=== PATIENT | female | born 1945 | race Caucasian/White ===

== ENCOUNTER → 2018-03-09 11:13 | Outpatient (CLI) | payer MEDICARE, OTHER, SELFPAY ==
[2018-03-09 11:26] LABS: Red Blood Cells-Urine 0 SEEN /hpf (0-5)
[2018-03-09 14:29] LABS: Color, Urine Yellow (Yellow); Glucose, Dipstick Normal (Normal); Ketone-Dipstick Negative (Negative); Leukocyte Esterase-Dipstick 100 /ul (Negative); Nitrite-Dipstick Negative (Negative); Occult Blood-Urine 10 /ul (Negative); Protein-Dipstick Negative (Negative); Specific Gravity, Urine 1.015 (1.002-1.030); Urine Bilirubin Dipstick Negative (Negative); Urine Clarity Clear (Clear); Urine Urobilinogen Normal (Normal); Urine pH 6.5 (5.0 - 8.0)
[2018-03-09 14:36] LABS: Erythrocyte Sedimentation Rate 3 mm/hr (0-30)
[2018-03-09 14:39] LABS: Absolute Lymphocyte Count 1.52 X10^3/ul (0.83-4.51); Absolute Neutrophil Count 5.3 X10^3/uL (2.0-7.7); Basophil# 0.04 X10^3/uL; Basophil% 0.5 % (0-1); Eosinophils% 2.7 % (0-5); Hematocrit 41.6 % (37-47); Lymphocyte # 1.52 X10^3/ul (4.0); Lymphocyte % 20.2 % (19-41); Mean Corp Hgb Conc 33.7 g/gl (32-36); Mean Corpuscular Hgb 28.3 pg (27.0-32.0); Mean Corpuscular Volume 84.2 fL (81-99); Mean Platelet Vol. 11.2 fl (6.2-12.0); Monocyte# 0.49 X10^3/uL; Monocyte% 6.5 % (0-10); Neutrophil # 5.27 X10^3/uL (2.7-7.7); Platelet Count 184 K/mm3 (150-450); RBC Distribution Width CV 13.2 % (11.6-14.6); RBC Distribution Width SD 40.3 fl (35.1-43.9); Red Blood Count 4.94 M/mm3 (4.2-5.4); White Blood Count 7.5 K/mm3 (4.4-11.0)
[2018-03-09 14:40] LABS: POSITIVE COUNT NO; POSITIVE DIFFERENTIAL NO; POSITIVE MORPHOLOGY NO
[2018-03-09 14:43] LABS: Bacteria RARE /hpf (None Seen); Mucous, Urine RARE /hpf (<or=2+); Squamous Epithelial Cells - UA 0-5 SEEN /hpf (5-10); White Blood Cells 0-5 SEEN /hpf (0-5)
[2018-03-09 14:56] LABS: ALB/GLOB Ratio 1.1 RATIO (0.9-2.4); AST(SGOT) 13 U/L (15-37); Alanine Aminotransfer ALT/SGPT 24 U/L (13-56); Albumin, Serum 4.1 g/dL (3.2-5.0); Alkaline Phosphatase 95 U/L (45-117); Anion Gap 9 (5-15); BUN 18 mg/dL (7-18); BUN/Creat Ratio 16.1 RATIO (10-20); CRP 6.26 mg/L (0.0-3.0); Chloride 102 mmol/L (98-107); Cholesterol 236 mg/dL (200); Creatinine, Serum 1.12 mg/dL (0.55-1.02); EST Glomerular Filtration Rate 51 mL/min (>60); Est Glom Filt Rate - Afr Amer 61 mL/min (>60); Globulin 3.7 g/dL (2.2-4.2); Glucose 90 mg/dL (74-106); High Density Lipoprotein 36 mg/dL; Potassium 3.6 mmol/L (3.5-5.1); Protein, Total 7.8 g/dL (6.4-8.2); Sodium Level 140 mmol/L (136-145); Thyroid Stim Hormone (TSH) 1.67 uIU/mL (0.358-3.74); Triglycerides 246 mg/dL; Very Low Density Lipoprotein 49 mg/dL (5-40)
[2018-03-10 09:52] LABS: Vitamin D,25 Hydroxy 31.7 ng/mL (29.95-100.01)
[2018-03-10 16:10] LABS: Endomysial Antibody IgA Negative (Negative)
[2018-03-11 09:36] LABS: Immunoglobulin A 141 mg/dL (64-422); t-Transglutaminase IgA <2 U/mL (0-3)
== END ==
PROVIDERS: Family Provider Family Medicine; PCP Family Medicine; Visit Provider Family Medicine
DX: I10 Essential (primary) hypertension (principal); M79.7 Fibromyalgia; R10.9 Unspecified abdominal pain; E55.9 Vitamin D deficiency, unspecified
CPT/HCPCS: 36415; 80053; 80061; 81001; 82306; 82784; 83516; 84443; 85025; 85652; 86140; 86255

== ENCOUNTER → 2018-03-30 12:00 | Outpatient (CLI) | payer MEDICARE, OTHER, SELFPAY ==
[2018-03-30 14:39] LABS: Anion Gap 10 (5-15); BUN 18 mg/dL (7-18); BUN/Creat Ratio 16.1 RATIO (10-20); Calcium,Total 9.2 mg/dL (8.5-10.1); Chloride 103 mmol/L (98-107); Creatinine, Serum 1.12 mg/dL (0.55-1.02); EST Glomerular Filtration Rate 51 mL/min (>60); Est Glom Filt Rate - Afr Amer 61 mL/min (>60); Glucose 83 mg/dL (74-106); Potassium 3.3 mmol/L (3.5-5.1); Sodium Level 141 mmol/L (136-145)
== END ==
PROVIDERS: Family Provider Family Medicine; PCP Family Medicine; Visit Provider Family Medicine
DX: R94.4 Abnormal results of kidney function studies (principal)
CPT/HCPCS: 36415; 80048

== ENCOUNTER → 2018-04-25 10:16 | Outpatient (CLI) | payer MEDICARE, OTHER, SELFPAY ==
--- NOTE | 2018-04-25 10:22 | CT_ITS ---
STUDY: CT CHEST WITHOUT CONTRAST REASON FOR EXAM: Female, 72 years old. Pulmonary nodules. RADIATION DOSAGE (If Supplied By Facility): CTDIvol = ( 12.36 ) mGy, DLP = ( 410.87 ) mGycm TECHNIQUE: Transaxial imaging was performed without the administration of intravenous contrast material. Sagittal/coronal reconstructions. Individualized dose optimization techniques were used for this CT. COMPARISON: None available. FINDINGS: CT abdomen without IV contrast. The lungs appear well ventilated and clear with only minimal predominantly bibasal lateral groundglass opacities consistent with subsegmental atelectasis. Right lower lobe posterior basal segment lateral approximate 0.5 x 0.9 cm calcified granuloma noted. There is no demonstrated pleural abnormality. No calcified pleural plaque identified. Moderate elevated right diaphragm seen. Mildly enlarged heart without pericardial fluid noted. Moderate left coronary artery LAD branch calcification. 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 Mediastinum shows numerous mildly enlarged lymph nodes. For example, right inferior paratracheal lymph node is seen just medial to the azygos arch proximal 1.2 x 1.5 cm. Other lymph nodes are seen in the lateral aortic recess and AP window with small right subcarinal calcified lymph node noted. Normal mika size noted with right hilar old calcified lymph nodes seen. Moderately enlarged appearing central pulmonary arteries noted, may represent pulmonary arterial hypertension in the appropriate clinical setting. No aneurysm identified thoracic aorta. Thyroid is partially obscured by metal artifact from right proximal humeral metal endoprosthesis but the left thyroid lobe shows a superior posterior rounded low-attenuation lesion, may represent a colloid cyst but is too small to characterize approximate 0.6 cm diameter. Esophagus shows no focal large gross bulky lesion with above limitations. No acute osseous identified. Metal artifact from right proximal humeral metal endoprosthesis noted. There is no demonstrated abnormality of the visualized upper abdomen. Tiny scattered splenic calcified granulomas noted. CT/Chest without Contrast IMPRESSION: Nonacute unenhanced CT Chest examination. Right lower lobe posterior segment calcified granuloma. Moderate pulmonary arterial hypertension suggested in the appropriate clinical setting. Clinical correlation recommended. Tiny left thyroid lobe superior pole likely colloid cyst. If clinically indicated, thyroid ultrasound may be more helpful. Limitations above. Electronically Signed: Maxwell Martinez, at 16:53 EDT Tel , Service support ,
== END ==
PROVIDERS: Family Provider Family Medicine; PCP Family Medicine; Visit Provider Family Medicine
DX: R91.8 Other nonspecific abnormal finding of lung field (principal)
CPT/HCPCS: 71250

== ENCOUNTER → 2018-05-09 08:52 | Outpatient (CLI) | payer MEDICARE, OTHER, SELFPAY | PROVIDERS: Family Provider Family Medicine; PCP Family Medicine; Visit Provider Family Medicine | DX: E04.1 Nontoxic single thyroid nodule (principal) | CPT/HCPCS: 76536 ==

== ENCOUNTER → 2018-05-11 11:54 | Outpatient (CLI) | payer MEDICARE, OTHER, SELFPAY ==
[2018-05-11 14:20] LABS: Anion Gap 9 (5-15); BUN 17 mg/dL (7-18); BUN/Creat Ratio 16.5 RATIO (10-20); Calcium,Total 9.4 mg/dL (8.5-10.1); Chloride 103 mmol/L (98-107); Creatinine, Serum 1.03 mg/dL (0.55-1.02); EST Glomerular Filtration Rate 56 mL/min (>60); Est Glom Filt Rate - Afr Amer 68 mL/min (>60); Glucose 87 mg/dL (74-106); Potassium 3.9 mmol/L (3.5-5.1); Sodium Level 139 mmol/L (136-145)
== END ==
PROVIDERS: Family Provider Family Medicine; PCP Family Medicine; Visit Provider Family Medicine
DX: N18.3 Chronic kidney disease, stage 3 (moderate) (principal)
CPT/HCPCS: 36415; 80048

== ENCOUNTER → 2018-06-21 08:54 | Outpatient (CLI) | payer MEDICARE, OTHER, SELFPAY ==
--- NOTE | 2018-06-21 08:57 | RDU_ITS ---
Reason For Study: Decreased GFR Right Renal Artery Left Renal Artery Right renal artery ostium 139/22 Left renal artery ostium 149/32 RSV/EDV. PSV/EDV. Right renal artery proximal 148/31 Left renal artery proximal PSV/EDV PSV/EDV. 227/43 . Right renal artery mid 135/29 Left renal artery mid 231/43 PSV/EDV. PSV/EDV . Right renal artery distal 157/33 Left renal artery distal 224/32 PSV/EDV. PSV/EDV. Right Renal Parenchyma Left Renal Parenchyma Upper Pole Medula 42/12 PSV/EDV. Left upper pole medulla 19/5 Right upper pole medulla EDR 0.29 . PSV/EDV . Right upper pole medulla R.I. Left upper pole medulla EDR 0.26 . 0.70 . Left upper pole medulla R.I. 0.75 . Upper Vicente Cortx 17/5 PSV/EDV. UP Cortex 23/5 PSV/EDV. Right upper pole cortex EDR 0.29 . Left upper pole cortex EDR 0.22 . Right upper pole cortex R.I. 0.67 . Left upper pole cortex R.I. 0.77 . Right lower Pole medulla 28/7 Left lower Pole medulla 19/4 PSV/EDV . PSV/EDV . Right lower pole medulla EDR 0.25 . Left lower pole medulla EDR 0.21 . Right lower pole medulla R.I. Left lower pole medulla R.I. 0.81 . 0.76 . Lower Pole Cortx 14/4 PSV/EDV. Lower Pole Cortex 16/5 PSV/EDV. Left lower pole cortex EDR 0.29 . Right lower pole cortex EDR 0.31 . Left lower pole cortex R.I. 0.69 . Right lower pole cortex R.I. 0.71 . Left Renal Hilar Right Renal Hilar LT Hilar avg 111/26 PSV/EDV . Right Hilar avg 77/14 PSV/EDV. Left hilar acceleration time 37 Right hilar acceleration time 29 m/sec. m/sec. Left Renal Dimensions Right Renal Dimensions Left kidney size 9.65 cm . Right kidney size 9.06 cm . Left cortical dimension 1.04 cm . Right cortical dimension 1.09 cm . Aorta Proximal abdominal aorta 1.63cm x 1.65 cm . Proximal abdominal aorta peak systolic velocity is 126 cm/sec . Distal abdominal aorta 1.18cm x 1.23 cm . Distal abdominal aorta peak systolic velocity is 90 cm/sec . Interpretation Summary Dimensions of the intra-abdominal aorta appear normal, without evidence of aneurysmal dilatation. Right renal artery velocities are normal. Left renal artery velocities are elevated. Acceleration times are normal bilaterally. There is no evidence of renal artery stenosis in the right renal artery. There is evidence of mild left renal artery stenosis, though not appearing to be hemodynamically significant. Cortical dimensions are bilaterally normal. Kidneys appear normal in size bilaterally. Ordering Physician: Siddharth Vidal Referring Physician: Siddharth Vidal Performed By: Gudelia Marcelo, TASHIA, RVT
== END ==
PROVIDERS: Family Provider Family Medicine; PCP Family Medicine; Referring Provider Family Medicine; Visit Provider Family Medicine
DX: I10 Essential (primary) hypertension (principal); R94.4 Abnormal results of kidney function studies
CPT/HCPCS: 93975

== ENCOUNTER → 2018-07-12 10:36 | Outpatient (CLI) | payer MEDICARE, OTHER, SELFPAY ==
[2018-07-12 12:21] LABS: Anion Gap 8 (5-15); BUN 16 mg/dL (7-18); BUN/Creat Ratio 15.2 RATIO (10-20); Calcium,Total 9.1 mg/dL (8.5-10.1); Chloride 105 mmol/L (98-107); Cholesterol 229 mg/dL (200); Creatinine, Serum 1.05 mg/dL (0.55-1.02); EST Glomerular Filtration Rate 55 mL/min (>60); Est Glom Filt Rate - Afr Amer 66 mL/min (>60); Glucose 91 mg/dL (74-106); High Density Lipoprotein 37 mg/dL; Potassium 3.9 mmol/L (3.5-5.1); Sodium Level 139 mmol/L (136-145); Triglycerides 248 mg/dL; Very Low Density Lipoprotein 50 mg/dL (5-40)
== END ==
PROVIDERS: Family Provider Family Medicine; PCP Family Medicine; Visit Provider Family Medicine
DX: N18.3 Chronic kidney disease, stage 3 (moderate) (principal); E78.5 Hyperlipidemia, unspecified
CPT/HCPCS: 36415; 80048; 80061

== ENCOUNTER → 2018-08-17 20:20 | Outpatient (CLI) | payer MEDICARE, OTHER, SELFPAY ==
--- OUTSIDE RECORDS SUMMARY | 2018-10-12 23:42 | XMS RPT_ITS ---
:1945 Author Organization OHIP Support Name Relationship Address Phone MARY BELLO Unavailable [id number] + [place] [address] R Unavailable Unavailable Unavailable ACE, MARY Unavailable [address] + [place] [address] R Unavailable Unavailable Unavailable ACE MARY Unavailable [address] + [place] [address] R Unavailable Unavailable Unavailable ACE, MARY Unavailable [address] + [place] [address] R Unavailable Unavailable Unavailable ACE, MARY Unavailable [address] + [place] [address] R Unavailable Unavailable Unavailable ACE, MARY Unavailable [address] + [place] [address] R Unavailable Unavailable Unavailable ACE, MARY Unavailable [address] + [place] [address] R Unavailable Unavailable Unavailable ACE, MARY Unavailable [address] + [place] [address] R Unavailable Unavailable Unavailable ACE, MARY Unavailable [address] + [place] [address] ACE MARY Unavailable [address] + [place] [address] R Unavailable Unavailable Unavailable ACE, MARY Unavailable [address] + [place] [address] NOT GIVEN Unavailable Unavailable Unavailable ACE, MARY Unavailable [address] + [place] [address] ACE MARY Unavailable [address] [place] [address] NOT GIVEN Unavailable Unavailable Unavailable Care Team Providers Name Role Phone Siddharth Vidal Attending Unavailable Siddharth Vidal Primary Care Unavailable Siddharth Vidal Attending Unavailable Siddharth Vidal Primary Care Unavailable Siddharth Vidal Attending Unavailable Schvira, Siddharth Werner Referring Unavailable Schvira, Siddharth Werner Primary Care Unavailable SchSiddharth constantino Attending Unavailable Schintucker, Siddharth Werner Referring Unavailable Schintucker, Siddharth E Primary Care Unavailable SchSiddharth constantino Attending Unavailable Schvira, Siddharth Werner Primary Care Unavailable SchSiddharth constantino Attending Unavailable Schvira, Siddharth E Primary Care Unavailable Schvira, Siddharth Werner Referring Unavailable Siddharth Vidal Attending Unavailable Siddharth Vidal Primary Care Unavailable Brandon Sanchez Attending Unavailable Siddharth Vidal Primary Care Unavailable Brandon Sanchez Referring Unavailable Nurse, Standard Attending Unavailable Siddharth Vidal Referring Unavailable JANET PARSON Attending Unavailable Physician, PCP Unknown Primary Care Unavailable PRINCESS JANET Admitting Unavailable TIFFANIE LINK Attending Unavailable Physician, PCP Unknown Primary Care Unavailable JEET GALINDO CNP Admitting Unavailable JEET GALINDO CNP Attending Unavailable JEET GALINDO CNP Primary Care Unavailable AGAPITO VARGHESE Consulting Unavailable PROVIDER, UNKNOWN Consulting Unavailable PROVIDER, UNKNOWN Consulting Unavailable PROVIDER, UNKNOWN Consulting Unavailable JEET GALINDO CNP Admitting Unavailable JEET GALINDO CNP Attending Unavailable JEET GALINDO CNP Primary Care Unavailable AGAPITO VARGHESE Consulting Unavailable PROVIDER, UNKNOWN Consulting Unavailable PROVIDER, UNKNOWN Consulting Unavailable PROVIDER, UNKNOWN Consulting Unavailable PRINCESS JANET Admitting Unavailable PRINCESS JANET Attending Unavailable NONE, NONE Consulting Unavailable PROBLEMS PROBLEMS DATE TYPE CONDITION / CODE ATTENDING STATUS SOURCE 08/18/2018 Unknown R82.90 - Brandon Sanchez Active [facility] abnormal [facility] in urine / Repository R82.90(ICD-10) 03/28/2018 Admitting ENC FOR OTHER [facility] diagnosis ORTHOPEDIC [facility] AFTERCARE / Repository Z47.89(ICD-10) 03/28/2018 Unknown ENC FOR OTHER [facility], Active [facility] ORTHOPEDIC [facility] AFTERCARE / Repository Z47.89(ICD-10) 03/28/2018 Unknown PAIN IN RIGHT [facility] SHOULDER / [facility] M25.511(ICD-10) Repository 03/20/2018 Admitting IMPINGEMENT PRINCESS Active [place] Diagnosis SYNDROME RIG / [facility] M75.41(ICD-10) Repository 11/17/2017 Admitting Unknown / NOWINSKI, Active [place] [facility] UNK(Unknown) [facility] Repository 01/23/2018 Principle Encounter for JEET GALINDO Active [facility] / H55553(ICD-10) Repository PROCEDURES PROCEDURES No Procedure Records FoundRESULTS RESULTS Observed: 08/17/2018 Status: F Source: ARRON CULTURE, URINE 2:45 PM [facility] REPOS[facility] Urine Culture ORGANISM 1: Mixed Gram Pos AND Gram Neg Org [place] Count 1000-10,000 MIX CULTURE Mixed contaminants. Submit a new specimen if indicated. Performed By: #### M100.0650 #### [facility] [address] [place], [address] BASIC METABOLIC Collected: 07/12/2018 Status: F Source: ARRON PROFILE (BMP) 10:37 AM [facility] REPOS[facility] TYPE CODE TESTS RESULT OUT OF RANGE REFERENCE UNITS LAB L501.0100 74-106 mg/dL Normal GLU 91 Result Comment: Please note revised GLUCOSE reference range effective 2017. LAB L501.1000 7-18 mg/dL Normal BUN 16 LAB L501.1100 0.55-1.02 mg/dL High CREAT,SERUM 1.05 Result Comment: The validity of the calculated GFR AND GFRAA in patients over 70 years has not been determined. Clinical correlation is essential. LAB L501.1110 >60 mL/min Low EST GFR 55 Result Comment: Non- GFR Calc LAB L501.1115 >60 mL/min Normal EST GFR - AA 66 Result Comment: GFR Calc LAB L501.1300 10-20 RATIO Normal BUN/CRE 15.2 LAB L501.2200 8.5-10.1 mg/dL CA Normal 9.1 LAB L501.5300 136-145 mmol/L NA Normal 139 LAB L501.5600 3.5-5.1 mmol/L K Normal 3.9 LAB L501.5900 98-107 mmol/L CL Normal 105 LAB L501.6100 21.0-32.0 mmol/L Normal CO2 26.0 LAB L501.6200 5-15 Normal GAP 8 Performed By: #### L500.2500, L500.4100 #### [facility] [address] [place], [address] LIPID PROFILE Collected: 07/12/2018 Status: F Source: JARRATT 10:37 AM [facility] TYPE CODE TESTS RESULT OUT OF RANGE REFERENCE UNITS LAB L501.4900 200 mg/dL High CHOL 229 Result Comment: <200 mg/dL Desirable 200-240 mg/dL Borderline >240 mg/dL High Risk LAB L501.5000 mg/dL High TRIG 248 Result Comment: The drugs N-Acetylcysteine and Metamizole may falsely depress this assay. Serum Triglycerides Reference Interval Normal <150 mg/dL Borderline high 150 - 199 mg/dL High 200 - 499 mg/dL Very High > or = 500 mg/dL LAB L501.6400 mg/dL Low HDL 37 Result Comment: The drugs N-Acetylcysteine and Metamizole may falsely depress this assay. Reference Range HDL <40 mg/dL Low HDL Cholesterol HDL >or= 60 mg/dL High HDL Cholesterol LAB L501.6500 0-130 mg/dL High LDL 142 LAB L501.6600 5-40 mg/dL High VLDL 50 Performed By: #### L500.2500, L500.4100 #### [facility] [address] [place], [address] RENAL ARTERY DUPLEX Observed: 06/23/2018 Status: F Source: JARRATT 10:02 PM [facility] [address] [place] [address] Renal Artery Duplex Ultrasound 06/21/18 0859 MR#: [id number] Acct: [id number] Name: ZEV BELLO Rep #: [id number] : 1945 72 From: Brian Moore MD Attending Dr: Siddharth Vidal MD Status: REG CLI Ordering Dr: Siddharth Vidal MD Date: 06/21/18 Location: CVS Sex: F C Admitted: Reason For Study: Decreased GFR Right Renal Artery Left Renal Artery Right renal artery ostium 139/22 Left renal artery ostium 149/32 RSV/EDV. PSV/EDV. Right renal artery proximal 148/31 Left renal artery proximal PSV/EDV PSV/EDV. 227/43 . Right renal artery mid 135/29 Left renal artery mid 231/43 PSV/EDV. PSV/EDV . Right renal artery distal 157/33 Left renal artery distal 224/32 PSV/EDV. PSV/EDV. Right Renal Parenchyma Left Renal Parenchyma Upper Pole Medula 42/12 PSV/EDV. Left upper pole medulla 19/5 Right upper pole medulla EDR 0.29 . PSV/EDV . Right upper pole medulla R.I. Left upper pole medulla EDR 0.26 . 0.70 . Left upper pole medulla R.I. 0.75 . Upper Vicente Cortx 17/5 PSV/EDV. UP Cortex 23/5 PSV/EDV. Right upper pole cortex EDR 0.29 . Left upper pole cortex EDR 0.22 . Right upper pole cortex R.I. 0.67 . Left upper pole cortex R.I. 0.77 . Right lower Pole medulla 28/7 Left lower Pole medulla 19/4 PSV/EDV . PSV/EDV . Right lower pole medulla EDR 0.25 . Left lower pole medulla EDR 0.21 . Right lower pole medulla R.I. Left lower pole medulla R.I. 0.81 . 0.76 . Lower Pole Cortx 14/4 PSV/EDV. Lower Pole Cortex 16/5 PSV/EDV. Left lower pole cortex EDR 0.29 . Right lower pole cortex EDR 0.31 . Left lower pole cortex R.I. 0.69 . Right lower pole cortex R.I. 0.71 . Left Renal Hilar Right Renal Hilar LT Hilar avg 111/26 PSV/EDV . Right Hilar avg 77/14 PSV/EDV. Left hilar acceleration time 37 Right hilar acceleration time 29 m/sec. m/sec. Left Renal Dimensions Right Renal Dimensions Left kidney size 9.65 cm . Right kidney size 9.06 cm . Left cortical dimension 1.04 cm . Right cortical dimension 1.09 cm . Aorta Proximal abdominal aorta 1.63cm x 1.65 cm . Proximal abdominal aorta peak systolic velocity is 126 cm/sec . Distal abdominal aorta 1.18cm x 1.23 cm . Distal abdominal aorta peak systolic velocity is 90 cm/sec . Interpretation Summary Dimensions of the intra-abdominal aorta appear normal, without evidence of aneurysmal dilatation. Right renal artery velocities are normal. Left renal artery velocities are elevated. Acceleration times are normal bilaterally. There is no evidence of renal artery stenosis in the right renal artery. There is evidence of mild left renal artery stenosis, though not appearing to be hemodynamically significant. Cortical dimensions are bilaterally normal. Kidneys appear normal in size bilaterally. Ordering Physician: Siddharth Vidal Referring Physician: Siddharth Vidal Performed By: Gudelia Marcelo, TASHIA, RVT 06/23/182200 Date Brian Moore MD CC: Siddharth Vidal MD Date Dictated: 06/21/1859 Date Transcribed: 06/23/182200 Visual Specialist: Signed BASIC METABOLIC Collected: 05/11/2018 Status: F Source: ARRON PROFILE (BMP) 11:55 AM [facility] Order Comment: Order Date: 05/11/18 Order Info: 0667-1 - BMP TYPE CODE TESTS RESULT OUT OF RANGE REFERENCE UNITS LAB L501.0100 74-106 mg/dL Normal GLU 87 Result Comment: Please note revised GLUCOSE reference range effective 2017. LAB L501.1000 7-18 mg/dL Normal BUN 17 LAB L501.1100 0.55-1.02 mg/dL High CREAT,SERUM 1.03 Result Comment: The validity of the calculated GFR AND GFRAA in patients over 70 years has not been determined. Clinical correlation is essential. LAB L501.1110 >60 mL/min Low EST GFR 56 Result Comment: Non- GFR Calc LAB L501.1115 >60 mL/min Normal EST GFR - AA 68 Result Comment: GFR Calc LAB L501.1300 10-20 RATIO Normal BUN/CRE 16.5 LAB L501.2200 8.5-10.1 mg/dL CA Normal 9.4 LAB L501.5300 136-145 mmol/L NA Normal 139 LAB L501.5600 3.5-5.1 mmol/L K Normal 3.9 LAB L501.5900 98-107 mmol/L CL Normal 103 LAB L501.6100 21.0-32.0 mmol/L Normal CO2 27.0 LAB L501.6200 5-15 Normal GAP 9 Performed By: #### L500.2500 #### [facility] [address] [place], [address] THYROID Observed: 05/09/2018 Status: F Source: JARRATT 8:55 AM [facility] Imaging Services [address] [place] [address] Thyroid MR#: [id number] Acct: [id number] Name: ZEV BELLO Rep #: [id number] : 1945 F 72 From: Timmy Ryan DO PCP: Siddharth Vidal MD Status: REG CLI Study: Thyroid Date of Exam: 05/09/18 Exam# [id number] Ordering Dr: Siddharth Vidal MD STUDY: THYROID ULTRASOUND REASON FOR EXAM: Female, 72 years old. Follow-up of thyroid nodule TECHNIQUE: Ultrasound evaluation of the thyroid was performed with real-time and static cagle-scale imaging. COMPARISON: Chest CT dated 04/25/2018 FINDINGS: RIGHT LOBE: The right lobe of the thyroid gland measures 4.6 x 1.9 x 1.6 cm. There is a homogeneous echotexture. There are no demonstrated solid, cystic or complex lesions. 1 mm calcification in the midpole LEFT LOBE: The left lobe of the thyroid gland measures 4.6 x 1.7 x 1.8 cm. There is a homogeneous echotexture. Mid to lower pole isoechoic nodule versus gentle lobulation measuring 9 x 6 x 8 mm. ISTHMUS: The isthmus measures 5 mm. The regional lymph nodes are normal. US/Thyroid IMPRESSION: Unremarkable right thyroid lobe. Small left thyroid lobe nodule versus gentle lobulation. Subcentimeter in size. Electronically Signed: Timmyantonella DupreeDO benjamin at 10:45 EDT Tel , Service support , CC: Siddharth Vidal MD Visual Specialist: Signed CHEST WITHOUT Observed: 04/25/2018 Status: F Source: JARRATT CONTRAST 10:22 AM [facility] Imaging Services [address] [place], [place] [address] [address] Chest without Contrast MR#: [id number] Acct: [id number] Name: ZEV BELLO Rep #: [id number] : 1945 F 72 From: Janet Martinez MD PCP: Siddharth Vidal MD Status: REG CLI Study: Chest without Contrast Date of Exam: 04/25/18 Exam# [id number] Ordering Dr: Siddharth Vidal MD STUDY: CT CHEST WITHOUT CONTRAST REASON FOR EXAM: Female, 72 years old. Pulmonary nodules. RADIATION DOSAGE (If Supplied By Facility): CTDIvol = ( 12.36 ) mGy, DLP = ( 410.87 ) mGycm TECHNIQUE: Transaxial imaging was performed without the administration of intravenous contrast material. Sagittal/coronal reconstructions. Individualized dose optimization techniques were used for this CT. COMPARISON: None available. FINDINGS: CT abdomen without IV contrast. The lungs appear well ventilated and clear with only minimal predominantly bibasal lateral groundglass opacities consistent with subsegmental atelectasis. Right lower lobe posterior basal segment lateral approximate 0.5 x 0.9 cm calcified granuloma noted. There is no demonstrated pleural abnormality. No calcified pleural plaque identified. Moderate elevated right diaphragm seen. Mildly enlarged heart without pericardial fluid noted. Moderate left coronary artery LAD branch calcification. 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 Mediastinum shows numerous mildly enlarged lymph nodes. For example, right inferior paratracheal lymph node is seen just medial to the azygos arch proximal 1.2 x 1.5 cm. Other lymph nodes are seen in the lateral aortic recess and AP window with small right subcarinal calcified lymph node noted. Normal mika size noted with right hilar old calcified lymph nodes seen. Moderately enlarged appearing central pulmonary arteries noted, may represent pulmonary arterial hypertension in the appropriate clinical setting. No aneurysm identified thoracic aorta. Thyroid is partially obscured by metal artifact from right proximal humeral metal endoprosthesis but the left thyroid lobe shows a superior posterior rounded low-attenuation lesion, may represent a colloid cyst but is too small to characterize approximate 0.6 cm diameter. Esophagus shows no focal large gross bulky lesion with above limitations. No acute osseous identified. Metal artifact from right proximal humeral metal endoprosthesis noted. There is no demonstrated abnormality of the visualized upper abdomen. Tiny scattered splenic calcified granulomas noted. CT/Chest without Contrast IMPRESSION: Nonacute unenhanced CT Chest examination. Right lower lobe posterior segment calcified granuloma. Moderate pulmonary arterial hypertension suggested in the appropriate clinical setting. Clinical correlation recommended. Tiny left thyroid lobe superior pole likely colloid cyst. If clinically indicated, thyroid ultrasound may be more helpful. Limitations above. Electronically Signed: Janet Martinez, at 16:53 EDT Tel , Service support , CC: Siddharth Vidla MD Visual Specialist: Signed BASIC METABOLIC Collected: 03/30/2018 Status: F Source: ARRON PROFILE (BMP) 12:03 PM [facility] Order Comment: Order Date: 03/30/18 Order Info: 0667-1 - BMP TYPE CODE TESTS RESULT OUT OF RANGE REFERENCE UNITS LAB L501.0100 74-106 mg/dL Normal GLU 83 Result Comment: Please note revised GLUCOSE reference range effective 2017. LAB L501.1000 7-18 mg/dL Normal BUN 18 LAB L501.1100 0.55-1.02 mg/dL High CREAT,SERUM 1.12 Result Comment: The validity of the calculated GFR AND GFRAA in patients over 70 years has not been determined. Clinical correlation is essential. LAB L501.1110 >60 mL/min Low EST GFR 51 Result Comment: Non- GFR Calc LAB L501.1115 >60 mL/min Normal EST GFR - AA 61 Result Comment: GFR Calc LAB L501.1300 10-20 RATIO Normal BUN/CRE 16.1 LAB L501.2200 8.5-10.1 mg/dL CA Normal 9.2 LAB L501.5300 136-145 mmol/L NA Normal 141 LAB L501.5600 3.5-5.1 mmol/L Low K 3.3 LAB L501.5900 98-107 mmol/L CL Normal 103 LAB L501.6100 21.0-32.0 mmol/L Normal CO2 28.0 LAB L501.6200 5-15 Normal GAP 10 Performed By: #### L500.2500 #### [facility] [address] [place], [address] DO NOT DISPLAY DATA Observed: 03/14/2018 Status: C Source: MOODUS DISCHARGE 11:46 AM [facility] RE[facility] [place] [address] Name: ZEV BELLO : 1945 Current Date: 03/14/2018 11:46:16 Primary Care Provider Name: Physician, PCP Unknown, Physician Phone: Patient Education Materials ZEV BELLO has been given the following patient education materials: Home Health Care Constipation, Adult Constipation is when a person has fewer than three bowel movements a week, has difficulty having a bowel movement, or has stools that are dry, hard, or larger than normal. As people grow older, constipa tion is more common. A low-fiber diet, not taking in enough fluids, and taking certain medicines may make constipation worse. CAUSES ???Certain medicines, such as antidepressants, pain medicine, iron supplements, antacids, and water pills. ?Certain diseases, such as diabetes, irritable bowel syndrome (IBS), thyroid disease, or depression. ?Not drinking enough water. ?Not eating enough fiber-rich foods. ?Stress or travel. ?Lack of physical activity or exercise. ?Ignoring the urge to have a bowel movement. ?Using laxatives too much. ? SIGNS AND SYMPTOMS ???Having fewer than three bowel movements a week. ?Straining to have a bowel movement. ?Having stools that are hard, dry, or larger than normal. ?Feeling full or bloated. ?Pain in the lower abdomen. ?Not feeling relief after having a bowel movement. ? DIAGNOSIS Your health care provider will take a medical history and perform a physical exam. Further testing may be done for severe constipation. Some tests may include: ???A barium enema X-ray to examine your rectum, colon, and, sometimes, your small intestine. ?A sigmoidoscopy to examine your lower colon. ?A colonoscopy to examine your entire colon. TREATMENT Treatment will depend on the severity of your constipation and what is causing it. Some dietary treatments include drinking more fluids and eating more fiber-rich foods. Lifestyle treatments may include regular exercise. If these diet and lifestyle recommendations do not help, your health care provider may recommend taking balj-bgd-nezdxmp laxative medicines to help you have bowel movements. Prescript ion medicines may be prescribed if mzhf-jrd-cidawik medicines do not work. HOME CARE INSTRUCTIONS ???Eat foods that have a lot of fiber, such as fruits, vegetables, whole grains, and beans. ???Limit foods high in fat and processed sugars, such as gibraltarian fries, hamburgers, cookies, candies, and soda. ?A fiber supplement may be added to your diet if you cannot get enough fiber from foods. ?Drink enough fluids to keep your urine clear or pale yellow. ?Exercise regularly or as directed by your health care provider. ?Go to the restroom when you have the urge to go. Do not hold it. ?Only take lgnr-epx-bwwksri or prescription medicines as directed by your health care provider. Do not take other medicines for constipation without talking to your health care provider first. ? SEEK IMMEDIATE MEDICAL CARE IF: ???You have bright red blood in your stool. ?Your constipation lasts for more than 4 days or gets worse. ?You have abdominal or rectal pain. ?You have thin, pencil-like stools. ?You have unexplained weight loss. MAKE SURE YOU: ???Understand these instructions. ???Will watch your condition. ???Will get help right away if you are not doing well or get worse. This information is not intended to replace advice given to you by your health care provider. Make sure you discuss any questions you have with your health care provider. Document Released: 06/03/2005 Document Revised: 09/26/2015 Document Reviewed: 06/17/2014 [employer] Patient Education ?2016 [employer] Preventive Medicine Venous Thromboembolism, Prevention A venous thromboembolism is a blood clot that forms in a vein. A blood clot in a deep vein is called a deep venous thrombosis (DVT). A blood clot in the lungs is called a pulmonary embolism (PE). Blood clots are dangerous and can cause . Blood clots can form in the: ???Lungs. ???Legs. ???Arms. CAUSES ???A blood clot can form in a vein from different conditions. A blood clot can develop due to: ???Blood flow within a vein that is sluggish or very slow. ???Medical conditions that make the blood clot easily. ???Vein damage. RISK FACTORS Risk factors can increase your risk of developing a blood clot. Risk factors can include: ???Smoking. ???Obesity. ???Age. ???Immobility or sedentary lifestyle. ???Sitting or standing for long periods of time. ???Chronic or long-term bedrest. ???Medical or past history of blood clots. ???Family history of blood clots. ???Hip, leg, or pelvis injury or trauma. ???Major surgery, especially surgery on the hip, knee, or abdomen. ??? and childbirth. ??? control pills and hormone replacement therapy. ???Medical conditions such as ???Peripheral vascular disease (PVD). ???Diabetes. ???Cancer. SYMPTOMS Symptoms of VTE can depend on where the clot is located and if the clot breaks off and travels to another organ. Sometimes, there may be no symptoms. ???DVT symptoms can include: ???Swelling of the leg or arm, especially on one side. ???Warmth and redness of the leg or arm, especially on one side. ???Pain in an arm or leg. Leg pain may be more noticeable or worse when standing or walking. ???PE symptoms can include: ???Shortness of breath. ???Coughing. ???Coughing up blood or blood-tinged mucus (hemoptysis). ???Chest pain or chest pain with deep breaths (pleuritic chest pain). ???Apprehension, anxiety, or a feeling of impending doom. ???Rapid heartbeat. PREVENTION ???Exercise regularly. Take a brisk 30 minute walk every day. Staying active and moving around can help prevent blood clots. ???Avoid sitting or lying in bed for long periods of time. Change your position often, especially during a long trip. ???Women, especially those over the age of 35, should consider the risks and benefits of taking estrogen medicines. This includes control pills and hormone replacement therapy. ???Do not smoke, especially if you take estrogen medicines. If you smoke, talk to your caregiver on how to quit. ???Eat plenty of fruits and vegetables. Ask your caregiver or dietitian if there are foods you should avoid. ???Maintain a weight as suggested by your caregiver. ???Wear loose-fitting clothing. Avoid constrictive or tight clothing around your legs or waist. ???Try not to bump or injure your legs. Avoid crossing your legs when you are sitting. ???Do not use pillows under your knees unless told by your caregiver. ???Take all medicines that your caregiver prescribes you. ???Wear special stockings (compression stockings or ANDRÉS hose) if your caregiver prescribes them. ???Wearing compression stockings (support hose) can make the leg veins more narrow. This increases blood flow in the legs and can help prevent blood clots. ???It is important to wear compression stockings correctly. Do not let them bunch up when you are wearing them. TRAVEL Long distance travel can increase the risk of a blood clot. To prevent a blood clot when traveling: ???You should exercise your legs by walking or by pumping your muscles every hour. To help prevent poor circulation on long trips, stand, stretch, and walk up and down the aisle of your airplane, train, or bus as often as possible to get the blood moving. ???Do squats if you are able. If you are unable to do squats, raise your foot on the balls of your feet and tighten your lower leg muscles (particularly the calve muscles) while seated. Pointing (flexin g and extending) your toes while tightening your calves while seated are also good exercises to do every hour during long trips. They help increase blood flow and reduce risk of DVT. ???Stay well hydrated. Drink water regularly when traveling, especially when you are sitting or immobile for long periods of time. ???Use of drugs to prevent DVT during routine travel is not generally recommended. Before taking any drugs to reduce risk of DVT, consult your caregiver. SURGERY AND HOSPITALIZATION ???People who are at high risk for a blood clot may be given a blood thinning medicine (anticoagulant) when they are hospitalized even if they are not going to have surgery. ???A long trip prior to surgery can increase the risk of a clot for patients undergoing hip and knee replacements. Talk to your caregiver about travel plans before your surgery. ???After hip or knee surgery, your caregiver may give you anticoagulants to help prevent blood clots. ???Anticoagulants may be given to people at high risk of developing thromboembolism, before, during, or sometimes after surgery, including people with clotting disorders or with a history of past thromboembolism. TRAVEL AFTER SURGERY ???In orthopedic surgery, the cutting of bones prompts the body to increase clotting factors in the blood. Due to the size of the bones involved in hip and knee replacements, there is a higher risk of b lood clotting than other orthopedic surgeries. ???There is a risk of clotting for up to 4?6 weeks after surgery. Flying or traveling long distances can increase your risk of a clot. As a result, those who travel long distances may need additional pr eventive measures after their procedure. ???Drink only non-alcoholic beverages during your flight, train, or car travel. Alcohol can dehydrate you and increase your risk of getting blood clots. SEEK IMMEDIATE MEDICAL CARE IF: ???You develop chest pain. ???You develop severe shortness of breath. ???You have breathing problems after traveling. ???You develop swelling or pain in the leg. ???You begin to cough up bloody mucus or phlegm (sputum). ???You feel dizzy or faint. This information is not intended to replace advice given to you by your health care provider. Make sure you discuss any questions you have with your health care provider. Document Released: 08/24/2010 Document Revised: 05/30/2013 Document Reviewed: 12/31/2015 [employer] Interactive Patient Education ?2016 [employer] Fall Prevention in the Home Falls can cause injuries. They can happen to people of all ages. There are many things you can do to make your home safe and to help prevent falls. WHAT CAN I DO ON THE OUTSIDE OF MY HOME?Regularly fix the edges of walkways and driveways and fix any cracks. ???Remove anything that might make you trip as you walk through a door, such as a raised step or threshold. ???Trim any bushes or trees on the path to your home. ???Use bright outdoor lighting. ???Clear any walking paths of anything that might make someone trip, such as rocks or tools. ???Regularly check to see if handrails are loose or broken. Make sure that both sides of any steps have handrails. ???Any raised decks and porches should have guardrails on the edges. ???Have any leaves, snow, or ice cleared regularly. ???Use sand or salt on walking paths during winter. ???Clean up any spills in your garage right away. This includes oil or grease spills. WHAT CAN I DO IN THE BATHROOM?Use night lights. ???Install grab bars by the toilet and in the tub and shower. Do not use towel bars as grab bars. ???Use non-skid mats or decals in the tub or shower. ???If you need to sit down in the shower, use a plastic, non- slip stool. ???Keep the floor dry. Clean up any water that spills on the floor as soon as it happens. ???Remove soap buildup in the tub or shower regularly. ???Attach bath mats securely with double-sided non-slip rug tape. ???Do not have throw rugs and other things on the floor that can make you trip. WHAT CAN I DO IN THE BEDROOM?Use night lights. ???Make sure that you have a light by your bed that is easy to reach. ???Do not use any sheets or blankets that are too big for your bed. They should not hang down onto the floor. ???Have a firm chair that has side arms. You can use this for support while you get dressed. ???Do not have throw rugs and other things on the floor that can make you trip. WHAT CAN I DO IN THE KITCHEN?Clean up any spills right away. ???Avoid walking on wet floors. ???Keep items that you use a lot in popx-bk-psrcu places. ???If you need to reach something above you, use a strong step stool that has a grab bar. ???Keep electrical cords out of the way. ???Do not use floor somali or wax that makes floors slippery. If you must use wax, use non-skid floor wax. ???Do not have throw rugs and other things on the floor that can make you trip. WHAT CAN I DO WITH MY STAIRS?Do not leave any items on the stairs. ???Make sure that there are handrails on both sides of the stairs and use them. Fix handrails that are broken or loose. Make sure that handrails are as long as the stairways. ???Check any carpeting to make sure that it is firmly attached to the stairs. Fix any carpet that is loose or worn. ???Avoid having throw rugs at the top or bottom of the stairs. If you do have throw rugs, attach them to the floor with carpet tape. ???Make sure that you have a light switch at the top of the stairs and the bottom of the stairs. If you do not have them, ask someone to add them for you. WHAT ELSE CAN I DO TO HELP PREVENT FALLS?Wear shoes that: ???Do not have high heels. ???Have rubber bottoms. ???Are comfortable and fit you well. ???Are closed at the toe. Do not wear sandals. ???If you use a stepladder: ???Make sure that it is fully opened. Do not climb a closed stepladder. ???Make sure that both sides of the stepladder are locked into place. ???Ask someone to hold it for you, if possible. ???Clearly judson and make sure that you can see: ???Any grab bars or handrails. ???First and last steps. ???Where the edge of each step is. ???Use tools that help you move around (mobility aids) if they are needed. These include: ???Canes. ???Walkers. ???Scooters. ???Crutches. ???Turn on the lights when you go into a dark area. Replace any light bulbs as soon as they burn out. ???Set up your furniture so you have a clear path. Avoid moving your furniture around. ???If any of your floors are uneven, fix them. ???If there are any pets around you, be aware of where they are. ???Review your medicines with your doctor. Some medicines can make you feel dizzy. This can increase your chance of falling. Ask your doctor what other things that you can do to help prevent falls. This information is not intended to replace advice given to you by your health care provider. Make sure you discuss any questions you have with your health care provider. Document Released: 07/02/2010 Document Revised: 01/20/2016 Document Reviewed: 10/10/2015 [employer] Interactive Patient Education ?2016 [employer] Procedures Incentive Spirometer An incentive spirometer is a tool that can help keep your lungs clear and active. This tool measures how well you are filling your lungs with each breath. Taking long, deep breaths may help reverse or d ecrease the chance of developing breathing (pulmonary) problems (especially infection) following: ???Surgery of the chest or abdomen. ???Surgery if you have a history of smoking or a lung problem. ???A long period of time when you are unable to move or be active. BEFORE THE PROCEDURE ???If the spirometer includes an indicator to show your best effort, your nurse or respiratory therapist will set it to a desired goal. ???If possible, sit up straight or lean slightly forward. Try not to slouch. ???Hold the incentive spirometer in an upright position. INSTRUCTIONS FOR USE 1.??Sit on the edge of your bed if possible, or sit up as far as you can in bed or on a chair. 2.??Hold the incentive spirometer in an upright position. 3.??Breathe out normally. 4.??Place the mouthpiece in your mouth and seal your lips tightly around it. 5.??Breathe in slowly and as deeply as possible, raising the piston or the ball toward the top of the column. 6.??Hold your breath for 3?5 seconds or for as long as possible. Allow the piston or ball to fall to the bottom of the column. 7.??Remove the mouthpiece from your mouth and breathe out normally. 8.??Rest for a few seconds and repeat Steps 1 through 7 at least 10 times every 1?2 hours when you are awake. Take your time and take a few normal breaths between deep breaths. 9.??The spirometer may include an indicator to show your best effort. Use the indicator as a goal to work toward during each repetition. 10.??After each set of 10 deep breaths, practice coughing to be sure your lungs are clear. If you have an incision (the cut made at the time of surgery), support your incision when coughing by placing a pillow or rolled-up towels firmly against it. Once you are able to get out of bed, walk around indoors and cough well. You may stop using the incentive spirometer when instructed by your caregiver. RISKS AND COMPLICATIONS ???Breathing too quickly may cause dizziness. At an extreme, this could cause you to pass out. Take your time so you do not get dizzy or light-headed. ???If you are in pain, you may need to take or ask for pain medication before doing incentive spirometry. It is harder to take a deep breath if you are having pain. AFTER USE ???Rest and breathe slowly and easily. ???It can be helpful to keep a log of your progress. Your caregiver can provide you with a simple table to help with this. If you are using the spirometer at home, follow these instructions: SEEK MEDICAL CARE IF: ???You are having difficultly using the spirometer. ???You have trouble using the spirometer as often as instructed. ???Your pain medication is not giving enough relief while using the spirometer. ???You develop fever of 100.5?F (38.1?C) or higher. SEEK IMMEDIATE MEDICAL CARE IF: ???You cough up bloody sputum that had not been present before. ???You develop fever of 102?F (38.9?C) or greater. ???You develop worsening pain at or near the incision site. MAKE SURE YOU: ???Understand these instructions. ???Will watch your condition. ???Will get help right away if you are not doing well or get worse. This information is not intended to replace advice given to you by your health care provider. Make sure you discuss any questions you have with your health care provider. Document Released: 01/16/2008 Document Revised: 09/26/2015 Document Reviewed: 04/14/2015 [employer] Interactive Patient Education ?2016 [employer] Pain Medicine Instructions HOW CAN PAIN MEDICINE AFFECT ME? You were given a prescription for pain medicine. This medicine may make you tired or drowsy and may affect your ability to think clearly. Pain medicine may also affect your ability to drive or perform c ertain physical activities. It may not be possible to make all of your pain go away, but you should be comfortable enough to move, breathe, and take care of yourself. HOW OFTEN SHOULD I TAKE PAIN MEDICINE AND HOW MUCH SHOULD I TAKE?Take pain medicine only as directed by your health care provider and only as needed for pain. ???You do not need to take pain medicine if you are not having pain, unless directed by your health care provider. ???You can take less than the prescribed dose if you find that a smaller amount of medicine controls your pain. WHAT RESTRICTIONS DO I HAVE WHILE TAKING PAIN MEDICINE? Follow these instructions after you start taking pain medicine, while you are taking the medicine, and for 8 hours after you stop taking the medicine: ???Do not drive. ???Do not operate machinery. ???Do not operate power tools. ???Do not sign legal documents. ???Do not drink alcohol. ???Do not take sleeping pills. ???Do not supervise children by yourself. ???Do not participate in activities that require climbing or being in high places. ???Do not enter a body of water?such as a knapp, river, ocean, spa, or swimming pool?without an adult nearby who can monitor and help you. HOW CAN I KEEP OTHERS SAFE WHILE I AM TAKING PAIN MEDICINE?Store your pain medicine as directed by your health care provider. Make sure that it is placed where children and pets cannot reach it. ???Never share your pain medicine with anyone. ???Do not save any leftover pills. If you have any leftover pain medicine, get rid of it or destroy it as directed by your health care provider. WHAT ELSE DO I NEED TO KNOW ABOUT TAKING PAIN MEDICINE?Use a stool softener if you become constipated from your pain medicine. Increasing your intake of fruits and vegetables will also help with constipation. ???Write down the times when you take your pain medicine. Look at the times before you take your next dose of medicine. It is easy to become confused while on pain medicine. Recording the times helps you to avoid an overdose. ???If your pain is severe, do not try to treat it yourself by taking more pills than instructed on your prescription. Contact your health care provider for help. ???You may have been prescribed a pain medicine that contains acetaminophen. Do not take any other acetaminophen while taking this medicine. An overdose of acetaminophen can result in severe liver damag e. Acetaminophen is found in many cmfn-rmx-tcxcimq (OTC) and prescription medicines. If you are taking any medicines in addition to your pain medicine, check the active ingredients on those medicines to see if acetaminophen is listed. WHEN SHOULD I CALL MY HEALTH CARE PROVIDER?Your medicine is not helping to make the pain go away. ???You vomit or have diarrhea shortly after taking the medicine. ???You develop new pain in areas that did not hurt before. ???You have an allergic reaction to your medicine. This may include: ???Itchiness. ???Swelling. ???Dizziness. ???Developing a new rash. WHEN SHOULD I CALL 911 OR GO TO THE EMERGENCY ROOM?You feel dizzy or you faint. ???You are very confused or disoriented. ???You repeatedly vomit. ???Your skin or lips turn pale or bluish in color. ???You have shortness of breath or you are breathing much more slowly than usual. ???You have a severe allergic reaction to your medicine. This includes: ???Developing tongue swelling. ???Having difficulty breathing. This information is not intended to replace advice given to you by your health care provider. Make sure you discuss any questions you have with your health care provider. Document Released: 12/12/2001 Document Revised: 01/20/2016 Document Reviewed: 07/10/2015 [employer] Interactive Patient Education ?2016 [employer] Mindful Eating - Building New Habits Health Education Mindful eating is a del valle part of good nutrition. Being mindful of what you are eating and enjoying the food you eat is an excellent habit to build. It can help you manage your weight, follow a special di et such as for diabetes, or eat healthier. You may find that you eat quickly or don't pay much attention to what or how much you are eating. This can lead to eating much more than you realize. When you eat mindlessly, you don't feel as satisfied as when you slow down and enjoy your food. Your mind needs to feel full - not just your stomach. Many people eat as a way of dealing with emotions and stress. Eating when you are bored, anxious or need comfort is very common. You may find yourself eating without even thinking about whether or not you are hungry. To increase your awareness: - Before eating anything make a conscious effort to ask yourself if you are really hungry. - Try keeping a food journal. Record how you are feeling as you begin and end eating, what you are eating, and the time you are eating. When you eat: - Slow down and savor each bite. Put down your fork between bites. - Try smelling your food. Enjoy the different scents of foods. - Focus on chewing food well and enjoying the tastes and textures of what you are eating. - Eat at the table. Put your food on a plate and sit down when you eat. - Don't multi-task while eating or eat in front of the TV or the computer. To avoid eating without thinking or overeating: - If there is food left on your plate and you are no longer hungry, cover it with a napkin or clear your plate. Clean up after meals. - Don't leave food sitting out and avoid candy dishes. - Don't keep food at your desk or in your office at work. - At parties, don't stand close to the food tables. Focus on enjoying the company. - Portion out your food. Never eat out of an original container such as a box of crackers or a bag of chips. Building mindful eating habits takes time and practice - just like any other skill. Share what you are doing with you friends and family members and ask them to support your efforts. Talk with your dietitian, nurse or doctor about any questions or concerns. To learn more about mindful eating: Eat What You Love and Love What You Eat by Teresa Hughes M.D. www.[facility] Eating Mindfully: How to End Mindless Eating and Enjoy a Balanced Relationship with Food by Natalie Santiago www.[employer] Mindful Eating: A Guide to Rediscovering a Healthy and Joyful Relationship with Food by Aneesh Spear Mindless Eating: Why We Eat More Than We Think by Twan Romero to Eating Healthy Health Education Healthful eating is one of the most important things you can do to improve your health. You may be able to decrease your risk of diabetes, obesity, heart disease, osteoporosis, and certain cancers. Use USDA's MyPlate and food labels as tools to plan and balance your choices over the course of the day or week. Eat a variety of foods from all the food groups. This is where USDA's My Plate (www.choosemyplate.gov) will come in handy. Each food group provides some, but not all, of the nutrients you need. No one food group is more important than another- for goo d health you need them all. If you avoid one whole food group, your diet may be out of balance and missing del valle nutrients. Eat 5 fruits and vegetables each day. Fruits and vegetables are a del valle part of your healthy eating plan. They are packed with fiber, vitamins, minerals, and cancer fighting antioxidants. ?? They make great healthful snacks and are easy to grab and eat when you are in a hurry. ?? You can include them in every meal by having fruit on your cereal at breakfast, salads at lunch, cooked veggies for dinner or fruit as dessert. Choose high fiber foods. Dietary fiber that occurs naturally in foods may help reduce the risk of cardiovascular disease, obesity, and type 2 diabetes. Whole grain breads and cereals, beans, legumes, fruits, and vegetables are all high in fiber. Choose foods lower in fat and cholesterol. Cut down on food that is high in fat and cholesterol to keep your heart healthy, help lower your cholesterol levels, and help control your weight. The goal is to get no more than 30% of your total calories from fat. Choose foods lower in salt. One easy way to eat less salt is to stop adding salt to your food. Remove the salt shaker from the table to help break the habit of salting food before tasting it. Use herbs and spices to add flavor to foods. Try salt-free seasonings such as Mrs. Giron??. A healthful goal is to keep your salt intake to 2,300 mg of sodium per day. Your doctor may prescribe a lower sodium goal of 1,500 mg per day if you have high blood pressure, heart failure, or kidney di sease. Read the food labels for sodium per serving to choose the foods that are lower in sodium. Everyone needs calcium. Our bodies need calcium throughout our lives for strong teeth and bones. Calcium is also important for our blood, nerves, and muscles. If you do not eat enough calcium, your body takes calcium from your bones, which can put you at risk for developing osteoporosis (a bone-thinning disease). The dairy group is a great source of calcium. If you do not drink milk, try eating other calcium-rich foods such as cheese, yogurt, dark leafy greens, broccoli, or calcium-fortified cereals and juice. T he goal is 3 servings of calcium-rich foods every day. Children, teenagers, and women need 4 servings per day. Limit sugar and sweets. Limit the number of foods you eat that contain added sugars such as desserts, doughnuts, cookies, and candies. Skip regular soda. Don't skip meals. You will have more energy and feel better if you eat at least 3 times a day. It's hard to get all of the nutrients you need when you skip meals. You may be tempted to make poor choices and to overeat wh en you do sit down to eat. Be realistic. Give yourself time to learn new, healthful eating habits. Most foods can be included in moderation. Control your portion sizes and eat what you have planned. Balance out your day. If one meal went ??out of bounds,?? make another meal cloth brushing and sueding supervisor or go for a walk. Know your triggers, such as boredom or stress, which lead to overeating and find a healthful alternative such as exercise. The del valle to eating healthfully is to set your goals, choose wisely, and start today! More Resources Include: www.choosemyplate.gov USDA's MyPlate www.eatright.org [place] [employer] Sample Food Label Patient Signature Responsible [employer] Relationship to Patient Clinician Signature Date PATIENT SUMMARY Observed: 03/14/2018 Status: F Source: [facility]ERSMEL 11:46 AM [facility] REPOSITORY PATIENT DISCHARGE INSTRUCTIONS If you are having an emergency and are not able to reach your physician, CALL 911 or go to the nearest emergency room and take this document with you. [facility] 03/14/18 11:46 [address] [place] [address] PATIENT INFORMATION Name: ZEV BELLO Address: [address] [address] [address] Age: 72 Years Phone: [phone] : 1945 12:[birth year] MRN: [id number] Sex: Female Race: White Ethnicity: Not Hispan/Lat Admitted From: Clinic or [facility] Medical Service: Orthopedic Surgery Nurse Unit/Bed: (CO) 2NBN 230-01 Admit Date: 03/13/2018 05:26 PCP: Physician, PCP Unknown PHYSICIANS INVOLVED WITH CARE Attending Physicians: Janet Parson DO - Orthopaedic Surg Admitting Physician: Janet Parson DO Orthopaedic Surg Primary Care Physician:Physician, PCP Unknown,Family Practice,,, - Consults: Judson Montiel MD - Internal Medicine THA Bhatt - Internal Medicine FOLLOW-UP APPOINTMENTS: Provider: Specialty: Address: Date: Janet Parson DO Orthopaedic Surg [address] [place], [place] [id number] (1) 03/23/18 10:45 am Provider: Specialty: Address: Date: PCP [facility] Follow-up as needed Provider: Specialty: Address: Date: [facility] Comment: phone: [phone] for questions will provide physical therapy 3 days per week for 2 weeks ALLERGIES: Nitrofurantoin : Reaction:Heart rate fast : Vomiting Oxaprozin : Reaction:Unknown Carafate : Reaction:Unknown Vioxx : Reaction:Unknown codeine : Reaction:Unknown sulfa drugs : Reaction:Unknown MEASUREMENTS: Last Charted: Weight: 80.70 kg /177 lbs 15 oz ( 03/13/18 05:57:00 ) MEDICATIONS For: ZEV BELLO This is your list of medication(s). Keep it with you at all times. Your doctor may have changed doses, add, held or stopped some of your medications. Please share this information with your family lianato r. Carry this list of medications with you in case of an emergency. Update it when medications are stopped, doses are changed, or new medications (including xekm-lfn-nddbqnc products) are added. Ask your doctor if you have any questions. THESE ARE THE MEDICATIONS YOU SHOULD BE TAKING cholecalciferol (Vitamin D3 5000 intl units oral capsule) 1 Capsule By Mouth once a day. am. Freetext Medication (NEW PRESCRIPTIONS) PLEASE FOLLOW NEW PRESCRIPTION Percocet Follow surgeon instructions for aspirin, senokot, ibuprofen. hydroCHLOROthiazide (hydroCHLOROthiazide 25 mg oral tablet) 1 Tab(s) By Mouth once a day. am. losartan (losartan 50 mg oral tablet) 1 Tab(s) By Mouth once a day. am. metoprolol (Toprol XL 25 mg oral tablet, extended release) 1 Tab(s) By Mouth once a day. am., Beta-B' ocular lubricant (Refresh) 1 Drops Both Eyes as needed Dry Eyes. ubiquinone (Coenzyme Q-10) (Co-Q10 100 mg oral capsule) 1 Capsule By Mouth Bedtime. MEDICATION CHANGE DETAILS (Not your Final Home Medication List) During the course of your visit, your home medication list was updated with the most current information. The details of those changes are shown below: NEW MEDICATIONS None UPDATED MEDICATIONS None UNCHANGED MEDICATIONS Other Medications cholecalciferol (Vitamin D3 5000 intl units oral capsule) 1 Capsule By Mouth once a day. am. Comment Freetext Medication (NEW PRESCRIPTIONS) PLEASE FOLLOW NEW PRESCRIPTION Percocet Follow surgeon instructions for aspirin, senokot, ibuprofen. Comment hydroCHLOROthiazide (hydroCHLOROthiazide 25 mg oral tablet) 1 Tab(s) By Mouth once a day. am. Comment losartan (losartan 50 mg oral tablet) 1 Tab(s) By Mouth once a day. am. Comment metoprolol (Toprol XL 25 mg oral tablet, extended release) 1 Tab(s) By Mouth once a day. am., Beta-B' Comment ocular lubricant (Refresh) 1 Drops Both Eyes as needed Dry Eyes. Comment ubiquinone (Coenzyme Q-10) (Co-Q10 100 mg oral capsule) 1 Capsule By Mouth Bedtime. Comment STOP TAKING THESE MEDICATIONS naproxen (Aleve sodium 220 mg oral tablet) 1 Tab(s) By Mouth as needed Pain/Discomfort. DO NOT TAKE UNTIL YOU TALK TO YOUR DOCTOR None NON-MEDICATION PRESCRIPTION SCHEDULING PHONE NUMBER: SELECTED LAB RESULTS Lab Result Order Date Hemoglobin 11.7 gm/dL 03/14/2018 Hematocrit 32.6 % 03/14/2018 WBC Count 15.1 thou/mcL 03/14/2018 Platelet Count 169 thou/mcL 03/14/2018 Sodium Level 139 mMol/L 03/14/2018 Potassium Level 4.2 mMol/L 03/14/2018 Creatinine 1.16 mg/dL 03/14/2018 BUN 17 mg/dL 03/14/2018 Glucose Level 132 mg/dL 03/14/2018 ADVANCE DIRECTIVE/HEALTH CARE DECISIONS: Advance Directive/Health Care Decisions Executed by Patient: : No Information Obtained From: Patient Advance Directive Health Care Information Offered: Patient declines SUICIDE HOTLINE: Your mental and emotional well-being are important. If you are in a mental health crisis, or having thoughts of suicide, please call the nationwide suicide hotline, anytime day or night, at 7-193-548-LDFY. Important information about accessing your health information through the [facility] patient portal If you initiated the self-registration process for [facility] during your stay, please check your personal email for an invitation to enroll in [facility] and complete the steps outlined in the email. If you would prefer to enroll while in the hospital, ask a member of your care team. We would be happy to assist you. If you have already enrolled in [facility], go to [email or web address] to login and access your health information. Thank you for choosing [facility]. PATIENT EDUCATION Venous Thromboembolism, Prevention A venous thromboembolism is a blood clot that forms in a vein. A blood clot in a deep vein is called a deep venous thrombosis (DVT). A blood clot in the lungs is called a pulmonary embolism (PE). Blood clots are dangerous and can cause . Blood clots can form in the: ???Lungs. ???Legs. ???Arms. CAUSES ???A blood clot can form in a vein from different conditions. A blood clot can develop due to: ???Blood flow within a vein that is sluggish or very slow. ???Medical conditions that make the blood clot easily. ???Vein damage. RISK FACTORS Risk factors can increase your risk of developing a blood clot. Risk factors can include: ???Smoking. ???Obesity. ???Age. ???Immobility or sedentary lifestyle. ???Sitting or standing for long periods of time. ???Chronic or long-term bedrest. ???Medical or past history of blood clots. ???Family history of blood clots. ???Hip, leg, or pelvis injury or trauma. ???Major surgery, especially surgery on the hip, knee, or abdomen. ??? and childbirth. ??? control pills and hormone replacement therapy. ???Medical conditions such as ???Peripheral vascular disease (PVD). ???Diabetes. ???Cancer. SYMPTOMS Symptoms of VTE can depend on where the clot is located and if the clot breaks off and travels to another organ. Sometimes, there may be no symptoms. ???DVT symptoms can include: ???Swelling of the leg or arm, especially on one side. ???Warmth and redness of the leg or arm, especially on one side. ???Pain in an arm or leg. Leg pain may be more noticeable or worse when standing or walking. ???PE symptoms can include: ???Shortness of breath. ???Coughing. ???Coughing up blood or blood-tinged mucus (hemoptysis). ???Chest pain or chest pain with deep breaths (pleuritic chest pain). ???Apprehension, anxiety, or a feeling of impending doom. ???Rapid heartbeat. PREVENTION ???Exercise regularly. Take a brisk 30 minute walk every day. Staying active and moving around can help prevent blood clots. ???Avoid sitting or lying in bed for long periods of time. Change your position often, especially during a long trip. ???Women, especially those over the age of 35, should consider the risks and benefits of taking estrogen medicines. This includes control pills and hormone replacement therapy. ???Do not smoke, especially if you take estrogen medicines. If you smoke, talk to your caregiver on how to quit. ???Eat plenty of fruits and vegetables. Ask your caregiver or dietitian if there are foods you should avoid. ???Maintain a weight as suggested by your caregiver. ???Wear loose-fitting clothing. Avoid constrictive or tight clothing around your legs or waist. ???Try not to bump or injure your legs. Avoid crossing your legs when you are sitting. ???Do not use pillows under your knees unless told by your caregiver. ???Take all medicines that your caregiver prescribes you. ???Wear special stockings (compression stockings or ANDRÉS hose) if your caregiver prescribes them. ???Wearing compression stockings (support hose) can make the leg veins more narrow. This increases blood flow in the legs and can help prevent blood clots. ???It is important to wear compression stockings correctly. Do not let them bunch up when you are wearing them. TRAVEL Long distance travel can increase the risk of a blood clot. To prevent a blood clot when traveling: ???You should exercise your legs by walking or by pumping your muscles every hour. To help prevent poor circulation on long trips, stand, stretch, and walk up and down the aisle of your airplane, train, or bus as often as possible to get the blood moving. ???Do squats if you are able. If you are unable to do squats, raise your foot on the balls of your feet and tighten your lower leg muscles (particularly the calve muscles) while seated. Pointing (flexin g and extending) your toes while tightening your calves while seated are also good exercises to do every hour during long trips. They help increase blood flow and reduce risk of DVT. ???Stay well hydrated. Drink water regularly when traveling, especially when you are sitting or immobile for long periods of time. ???Use of drugs to prevent DVT during routine travel is not generally recommended. Before taking any drugs to reduce risk of DVT, consult your caregiver. SURGERY AND HOSPITALIZATION ???People who are at high risk for a blood clot may be given a blood thinning medicine (anticoagulant) when they are hospitalized even if they are not going to have surgery. ???A long trip prior to surgery can increase the risk of a clot for patients undergoing hip and knee replacements. Talk to your caregiver about travel plans before your surgery. ???After hip or knee surgery, your caregiver may give you anticoagulants to help prevent blood clots. ???Anticoagulants may be given to people at high risk of developing thromboembolism, before, during, or sometimes after surgery, including people with clotting disorders or with a history of past thromboembolism. TRAVEL AFTER SURGERY ???In orthopedic surgery, the cutting of bones prompts the body to increase clotting factors in the blood. Due to the size of the bones involved in hip and knee replacements, there is a higher risk of b lood clotting than other orthopedic surgeries. ???There is a risk of clotting for up to 4?6 weeks after surgery. Flying or traveling long distances can increase your risk of a clot. As a result, those who travel long distances may need additional pr eventive measures after their procedure. ???Drink only non-alcoholic beverages during your flight, train, or car travel. Alcohol can dehydrate you and increase your risk of getting blood clots. SEEK IMMEDIATE MEDICAL CARE IF: ???You develop chest pain. ???You develop severe shortness of breath. ???You have breathing problems after traveling. ???You develop swelling or pain in the leg. ???You begin to cough up bloody mucus or phlegm (sputum). ???You feel dizzy or faint. This information is not intended to replace advice given to you by your health care provider. Make sure you discuss any questions you have with your health care provider. Document Released: 08/24/2010 Document Revised: 05/30/2013 Document Reviewed: 12/31/2015 [employer] Interactive Patient Education ?2016 [employer]. Incentive Spirometer An incentive spirometer is a tool that can help keep your lungs clear and active. This tool measures how well you are filling your lungs with each breath. Taking long, deep breaths may help reverse or d ecrease the chance of developing breathing (pulmonary) problems (especially infection) following: ???Surgery of the chest or abdomen. ???Surgery if you have a history of smoking or a lung problem. ???A long period of time when you are unable to move or be active. BEFORE THE PROCEDURE ???If the spirometer includes an indicator to show your best effort, your nurse or respiratory therapist will set it to a desired goal. ???If possible, sit up straight or lean slightly forward. Try not to slouch. ???Hold the incentive spirometer in an upright position. INSTRUCTIONS FOR USE 1.??Sit on the edge of your bed if possible, or sit up as far as you can in bed or on a chair. 2.??Hold the incentive spirometer in an upright position. 3.??Breathe out normally. 4.??Place the mouthpiece in your mouth and seal your lips tightly around it. 5.??Breathe in slowly and as deeply as possible, raising the piston or the ball toward the top of the column. 6.??Hold your breath for 3?5 seconds or for as long as possible. Allow the piston or ball to fall to the bottom of the column. 7.??Remove the mouthpiece from your mouth and breathe out normally. 8.??Rest for a few seconds and repeat Steps 1 through 7 at least 10 times every 1?2 hours when you are awake. Take your time and take a few normal breaths between deep breaths. 9.??The spirometer may include an indicator to show your best effort. Use the indicator as a goal to work toward during each repetition. 10.??After each set of 10 deep breaths, practice coughing to be sure your lungs are clear. If you have an incision (the cut made at the time of surgery), support your incision when coughing by placing a pillow or rolled-up towels firmly against it. Once you are able to get out of bed, walk around indoors and cough well. You may stop using the incentive spirometer when instructed by your caregiver. RISKS AND COMPLICATIONS ???Breathing too quickly may cause dizziness. At an extreme, this could cause you to pass out. Take your time so you do not get dizzy or light-headed. ???If you are in pain, you may need to take or ask for pain medication before doing incentive spirometry. It is harder to take a deep breath if you are having pain. AFTER USE ???Rest and breathe slowly and easily. ???It can be helpful to keep a log of your progress. Your caregiver can provide you with a simple table to help with this. If you are using the spirometer at home, follow these instructions: SEEK MEDICAL CARE IF: ???You are having difficultly using the spirometer. ???You have trouble using the spirometer as often as instructed. ???Your pain medication is not giving enough relief while using the spirometer. ???You develop fever of 100.5?F (38.1?C) or higher. SEEK IMMEDIATE MEDICAL CARE IF: ???You cough up bloody sputum that had not been present before. ???You develop fever of 102?F (38.9?C) or greater. ???You develop worsening pain at or near the incision site. MAKE SURE YOU: ???Understand these instructions. ???Will watch your condition. ???Will get help right away if you are not doing well or get worse. This information is not intended to replace advice given to you by your health care provider. Make sure you discuss any questions you have with your health care provider. Document Released: 01/16/2008 Document Revised: 09/26/2015 Document Reviewed: 04/14/2015 [employer] Interactive Patient Education ?2016 [employer] Constipation, Adult Constipation is when a person has fewer than three bowel movements a week, has difficulty having a bowel movement, or has stools that are dry, hard, or larger than normal. As people grow older, constipa tion is more common. A low-fiber diet, not taking in enough fluids, and taking certain medicines may make constipation worse. CAUSES ???Certain medicines, such as antidepressants, pain medicine, iron supplements, antacids, and water pills. ?Certain diseases, such as diabetes, irritable bowel syndrome (IBS), thyroid disease, or depression. ?Not drinking enough water. ?Not eating enough fiber-rich foods. ?Stress or travel. ?Lack of physical activity or exercise. ?Ignoring the urge to have a bowel movement. ?Using laxatives too much. ? SIGNS AND SYMPTOMS ???Having fewer than three bowel movements a week. ?Straining to have a bowel movement. ?Having stools that are hard, dry, or larger than normal. ?Feeling full or bloated. ?Pain in the lower abdomen. ?Not feeling relief after having a bowel movement. ? DIAGNOSIS Your health care provider will take a medical history and perform a physical exam. Further testing may be done for severe constipation. Some tests may include: ???A barium enema X-ray to examine your rectum, colon, and, sometimes, your small intestine. ?A sigmoidoscopy to examine your lower colon. ?A colonoscopy to examine your entire colon. TREATMENT Treatment will depend on the severity of your constipation and what is causing it. Some dietary treatments include drinking more fluids and eating more fiber-rich foods. Lifestyle treatments may include regular exercise. If these diet and lifestyle recommendations do not help, your health care provider may recommend taking htwi-tif-kjltrom laxative medicines to help you have bowel movements. Prescript ion medicines may be prescribed if stwi-mca-xtpsqjz medicines do not work. HOME CARE INSTRUCTIONS ???Eat foods that have a lot of fiber, such as fruits, vegetables, whole grains, and beans. ???Limit foods high in fat and processed sugars, such as gibraltarian fries, hamburgers, cookies, candies, and soda. ?A fiber supplement may be added to your diet if you cannot get enough fiber from foods. ?Drink enough fluids to keep your urine clear or pale yellow. ?Exercise regularly or as directed by your health care provider. ?Go to the restroom when you have the urge to go. Do not hold it. ?Only take tfzj-pkt-ezljpga or prescription medicines as directed by your health care provider. Do not take other medicines for constipation without talking to your health care provider first. ? SEEK IMMEDIATE MEDICAL CARE IF: ???You have bright red blood in your stool. ?Your constipation lasts for more than 4 days or gets worse. ?You have abdominal or rectal pain. ?You have thin, pencil-like stools. ?You have unexplained weight loss. MAKE SURE YOU: ???Understand these instructions. ???Will watch your condition. ???Will get help right away if you are not doing well or get worse. This information is not intended to replace advice given to you by your health care provider. Make sure you discuss any questions you have with your health care provider. Document Released: 06/03/2005 Document Revised: 09/26/2015 Document Reviewed: 06/17/2014 [employer] Interactive Patient Education ?2016 [employer] Pain Medicine Instructions HOW CAN PAIN MEDICINE AFFECT ME? You were given a prescription for pain medicine. This medicine may make you tired or drowsy and may affect your ability to think clearly. Pain medicine may also affect your ability to drive or perform c ertain physical activities. It may not be possible to make all of your pain go away, but you should be comfortable enough to move, breathe, and take care of yourself. HOW OFTEN SHOULD I TAKE PAIN MEDICINE AND HOW MUCH SHOULD I TAKE?Take pain medicine only as directed by your health care provider and only as needed for pain. ???You do not need to take pain medicine if you are not having pain, unless directed by your health care provider. ???You can take less than the prescribed dose if you find that a smaller amount of medicine controls your pain. WHAT RESTRICTIONS DO I HAVE WHILE TAKING PAIN MEDICINE? Follow these instructions after you start taking pain medicine, while you are taking the medicine, and for 8 hours after you stop taking the medicine: ???Do not drive. ???Do not operate machinery. ???Do not operate power tools. ???Do not sign legal documents. ???Do not drink alcohol. ???Do not take sleeping pills. ???Do not supervise children by yourself. ???Do not participate in activities that require climbing or being in high places. ???Do not enter a body of water?such as a knapp, river, ocean, spa, or swimming pool?without an adult nearby who can monitor and help you. HOW CAN I KEEP OTHERS SAFE WHILE I AM TAKING PAIN MEDICINE?Store your pain medicine as directed by your health care provider. Make sure that it is placed where children and pets cannot reach it. ???Never share your pain medicine with anyone. ???Do not save any leftover pills. If you have any leftover pain medicine, get rid of it or destroy it as directed by your health care provider. WHAT ELSE DO I NEED TO KNOW ABOUT TAKING PAIN MEDICINE?Use a stool softener if you become constipated from your pain medicine. Increasing your intake of fruits and vegetables will also help with constipation. ???Write down the times when you take your pain medicine. Look at the times before you take your next dose of medicine. It is easy to become confused while on pain medicine. Recording the times helps you to avoid an overdose. ???If your pain is severe, do not try to treat it yourself by taking more pills than instructed on your prescription. Contact your health care provider for help. ???You may have been prescribed a pain medicine that contains acetaminophen. Do not take any other acetaminophen while taking this medicine. An overdose of acetaminophen can result in severe liver damag e. Acetaminophen is found in many pbtt-uvj-finzbrg (OTC) and prescription medicines. If you are taking any medicines in addition to your pain medicine, check the active ingredients on those medicines to see if acetaminophen is listed. WHEN SHOULD I CALL MY HEALTH CARE PROVIDER?Your medicine is not helping to make the pain go away. ???You vomit or have diarrhea shortly after taking the medicine. ???You develop new pain in areas that did not hurt before. ???You have an allergic reaction to your medicine. This may include: ???Itchiness. ???Swelling. ???Dizziness. ???Developing a new rash. WHEN SHOULD I CALL 911 OR GO TO THE EMERGENCY ROOM?You feel dizzy or you faint. ???You are very confused or disoriented. ???You repeatedly vomit. ???Your skin or lips turn pale or bluish in color. ???You have shortness of breath or you are breathing much more slowly than usual. ???You have a severe allergic reaction to your medicine. This includes: ???Developing tongue swelling. ???Having difficulty breathing. This information is not intended to replace advice given to you by your health care provider. Make sure you discuss any questions you have with your health care provider. Document Released: 12/12/2001 Document Revised: 01/20/2016 Document Reviewed: 07/10/2015 [employer] Interactive Patient Education ?2016 [employer] Fall Prevention in the Home Falls can cause injuries. They can happen to people of all ages. There are many things you can do to make your home safe and to help prevent falls. WHAT CAN I DO ON THE OUTSIDE OF MY HOME?Regularly fix the edges of walkways and driveways and fix any cracks. ???Remove anything that might make you trip as you walk through a door, such as a raised step or threshold. ???Trim any bushes or trees on the path to your home. ???Use bright outdoor lighting. ???Clear any walking paths of anything that might make someone trip, such as rocks or tools. ???Regularly check to see if handrails are loose or broken. Make sure that both sides of any steps have handrails. ???Any raised decks and porches should have guardrails on the edges. ???Have any leaves, snow, or ice cleared regularly. ???Use sand or salt on walking paths during winter. ???Clean up any spills in your garage right away. This includes oil or grease spills. WHAT CAN I DO IN THE BATHROOM?Use night lights. ???Install grab bars by the toilet and in the tub and shower. Do not use towel bars as grab bars. ???Use non-skid mats or decals in the tub or shower. ???If you need to sit down in the shower, use a plastic, non- slip stool. ???Keep the floor dry. Clean up any water that spills on the floor as soon as it happens. ???Remove soap buildup in the tub or shower regularly. ???Attach bath mats securely with double-sided non-slip rug tape. ???Do not have throw rugs and other things on the floor that can make you trip. WHAT CAN I DO IN THE BEDROOM?Use night lights. ???Make sure that you have a light by your bed that is easy to reach. ???Do not use any sheets or blankets that are too big for your bed. They should not hang down onto the floor. ???Have a firm chair that has side arms. You can use this for support while you get dressed. ???Do not have throw rugs and other things on the floor that can make you trip. WHAT CAN I DO IN THE KITCHEN?Clean up any spills right away. ???Avoid walking on wet floors. ???Keep items that you use a lot in dfbr-ai-ckxph places. ???If you need to reach something above you, use a strong step stool that has a grab bar. ???Keep electrical cords out of the way. ???Do not use floor somali or wax that makes floors slippery. If you must use wax, use non-skid floor wax. ???Do not have throw rugs and other things on the floor that can make you trip. WHAT CAN I DO WITH MY STAIRS?Do not leave any items on the stairs. ???Make sure that there are handrails on both sides of the stairs and use them. Fix handrails that are broken or loose. Make sure that handrails are as long as the stairways. ???Check any carpeting to make sure that it is firmly attached to the stairs. Fix any carpet that is loose or worn. ???Avoid having throw rugs at the top or bottom of the stairs. If you do have throw rugs, attach them to the floor with carpet tape. ???Make sure that you have a light switch at the top of the stairs and the bottom of the stairs. If you do not have them, ask someone to add them for you. WHAT ELSE CAN I DO TO HELP PREVENT FALLS?Wear shoes that: ???Do not have high heels. ???Have rubber bottoms. ???Are comfortable and fit you well. ???Are closed at the toe. Do not wear sandals. ???If you use a stepladder: ???Make sure that it is fully opened. Do not climb a closed stepladder. ???Make sure that both sides of the stepladder are locked into place. ???Ask someone to hold it for you, if possible. ???Clearly judson and make sure that you can see: ???Any grab bars or handrails. ???First and last steps. ???Where the edge of each step is. ???Use tools that help you move around (mobility aids) if they are needed. These include: ???Canes. ???Walkers. ???Scooters. ???Crutches. ???Turn on the lights when you go into a dark area. Replace any light bulbs as soon as they burn out. ???Set up your furniture so you have a clear path. Avoid moving your furniture around. ???If any of your floors are uneven, fix them. ???If there are any pets around you, be aware of where they are. ???Review your medicines with your doctor. Some medicines can make you feel dizzy. This can increase your chance of falling. Ask your doctor what other things that you can do to help prevent falls. This information is not intended to replace advice given to you by your health care provider. Make sure you discuss any questions you have with your health care provider. Document Released: 07/02/2010 Document Revised: 01/20/2016 Document Reviewed: 10/10/2015 Elsevier Interactive Patient Education ?2016 [employer] Mindful Eating - Building New Habits Health Education Mindful eating is a del valle part of good nutrition. Being mindful of what you are eating and enjoying the food you eat is an excellent habit to build. It can help you manage your weight, follow a special di et such as for diabetes, or eat healthier. You may find that you eat quickly or don't pay much attention to what or how much you are eating. This can lead to eating much more than you realize. When you eat mindlessly, you don't feel as satisfied as when you slow down and enjoy your food. Your mind needs to feel full - not just your stomach. Many people eat as a way of dealing with emotions and stress. Eating when you are bored, anxious or need comfort is very common. You may find yourself eating without even thinking about whether or not you are hungry. To increase your awareness: - Before eating anything make a conscious effort to ask yourself if you are really hungry. - Try keeping a food journal. Record how you are feeling as you begin and end eating, what you are eating, and the time you are eating. When you eat: - Slow down and savor each bite. Put down your fork between bites. - Try smelling your food. Enjoy the different scents of foods. - Focus on chewing food well and enjoying the tastes and textures of what you are eating. - Eat at the table. Put your food on a plate and sit down when you eat. - Don't multi-task while eating or eat in front of the TV or the computer. To avoid eating without thinking or overeating: - If there is food left on your plate and you are no longer hungry, cover it with a napkin or clear your plate. Clean up after meals. - Don't leave food sitting out and avoid candy dishes. - Don't keep food at your desk or in your office at work. - At parties, don't stand close to the food tables. Focus on enjoying the company. - Portion out your food. Never eat out of an original container such as a box of crackers or a bag of chips. Building mindful eating habits takes time and practice - just like any other skill. Share what you are doing with you friends and family members and ask them to support your efforts. Talk with your dietitian, nurse or doctor about any questions or concerns. To learn more about mindful eating: Eat What You Love and Love What You Eat by Teresa Hughes M.D. www.Private Practice Eating Mindfully: How to End Mindless Eating and Enjoy a Balanced Relationship with Food by Natalie Santiago www.[employer] Mindful Eating: A Guide to Rediscovering a Healthy and Joyful Relationship with Food by Aneesh Spear Mindless Eating: Why We Eat More Than We Think by Twan Romero to Eating Healthy Health Education Healthful eating is one of the most important things you can do to improve your health. You may be able to decrease your risk of diabetes, obesity, heart disease, osteoporosis, and certain cancers. Use [employer]'s MyPlate and food labels as tools to plan and balance your choices over the course of the day or week. Eat a variety of foods from all the food groups. This is where [employer]'s My Plate (www.choosemyplate.gov) will come in handy. Each food group provides some, but not all, of the nutrients you need. No one food group is more important than another- for goo d health you need them all. If you avoid one whole food group, your diet may be out of balance and missing del valle nutrients. Eat 5 fruits and vegetables each day. Fruits and vegetables are a del valle part of your healthy eating plan. They are packed with fiber, vitamins, minerals, and cancer fighting antioxidants. ?? They make great healthful snacks and are easy to grab and eat when you are in a hurry. ?? You can include them in every meal by having fruit on your cereal at breakfast, salads at lunch, cooked veggies for dinner or fruit as dessert. Choose high fiber foods. Dietary fiber that occurs naturally in foods may help reduce the risk of cardiovascular disease, obesity, and type 2 diabetes. Whole grain breads and cereals, beans, legumes, fruits, and vegetables are all high in fiber. Choose foods lower in fat and cholesterol. Cut down on food that is high in fat and cholesterol to keep your heart healthy, help lower your cholesterol levels, and help control your weight. The goal is to get no more than 30% of your total calories from fat. Choose foods lower in salt. One easy way to eat less salt is to stop adding salt to your food. Remove the salt shaker from the table to help break the habit of salting food before tasting it. Use herbs and spices to add flavor to foods. Try salt-free seasonings such as Mrs. Giron??. A healthful goal is to keep your salt intake to 2,300 mg of sodium per day. Your doctor may prescribe a lower sodium goal of 1,500 mg per day if you have high blood pressure, heart failure, or kidney di sease. Read the food labels for sodium per serving to choose the foods that are lower in sodium. Everyone needs calcium. Our bodies need calcium throughout our lives for strong teeth and bones. Calcium is also important for our blood, nerves, and muscles. If you do not eat enough calcium, your body takes calcium from your bones, which can put you at risk for developing osteoporosis (a bone-thinning disease). The dairy group is a great source of calcium. If you do not drink milk, try eating other calcium-rich foods such as cheese, yogurt, dark leafy greens, broccoli, or calcium-fortified cereals and juice. T he goal is 3 servings of calcium-rich foods every day. Children, teenagers, and women need 4 servings per day. Limit sugar and sweets. Limit the number of foods you eat that contain added sugars such as desserts, doughnuts, cookies, and candies. Skip regular soda. Don't skip meals. You will have more energy and feel better if you eat at least 3 times a day. It's hard to get all of the nutrients you need when you skip meals. You may be tempted to make poor choices and to overeat wh en you do sit down to eat. Be realistic. Give yourself time to learn new, healthful eating habits. Most foods can be included in moderation. Control your portion sizes and eat what you have planned. Balance out your day. If one meal went ??out of bounds,?? make another meal cloth brushing and sueding supervisor or go for a walk. Know your triggers, such as boredom or stress, which lead to overeating and find a healthful alternative such as exercise. The del valle to eating healthfully is to set your goals, choose wisely, and start today! More Resources Include: www.choosemyplate.gov USDA's MyPlate www.eatright.org [place] [employer] Sample Food Label PATIENT DISCHARGE INSTRUCTION Signature Page for: ZEV BELLO Date/Time: 03/14/2018 11:46:12 A Clinician has explained the information on my discharge instructions and has provided me with a copy. My questions have been answered to my satisfaction. Patient Signature Date/Time Responsible Party Date/Time Relationship to Patient Clinician Signature Date/Time CLINICAL SUMMARY Observed: 03/14/2018 Status: F Source: [facility] 11:46 [facility] REPOSITORY CLINICAL SUMMARY Please take this summary document to your follow up appointments. [facility] [place] 03/14/18 11:46 [address] [place]. [address] PATIENT INFORMATION Name: ZEV BELLO Address: [address] [facility] [address] Age: 72 Years Phone: [phone] : 1945 12:00 MRN: [id number] Sex: Female Race: White Ethnicity: Not Hispan/Lat Admitted From: Clinic or [facility] Medical Service: Orthopedic Surgery Nurse Unit/Bed: (CO) 2NBN 230-01 Admit Date: 03/13/2018 05:26 PCP: Physician, PCP Unknown PHYSICIANS INVOLVED WITH CARE Attending Physicians: Janet Parson DO - Orthopaedic Surg Admitting Physician: Janet Parson DO Orthopaedic Surg Primary Care Physician:Physician, PCP Unknown,Family Practice,,, - Consults: Dinesh ELIZONDO , Judson Dumont - Internal Medicine [facility], THA - Internal Medicine Problems Active Heart imaging Fibromyalgia High cholesterol HTN (hypertension) Allergies Nitrofurantoin (Heart rate fast) (Vomiting) Oxaprozin (Unknown) Carafate (Unknown) Vioxx (Unknown) codeine (Unknown) sulfa drugs (Unknown) Procedures Arthroplasty of shoulder (03/13/2018) MEASUREMENTS: Last Charted: Weight: 80.70 kg /177 lbs 15 oz ( 03/13/18 05:57:00 ) VITAL SIGNS: Last Charted: Pulse Rate: 62 BPM (03/14 11:42) Blood Pressure: 144/77 mm Hg (03/14 11:42) Pain Score: 4(03/14 10:08) MENTAL STATUS: Level of Conciousness: Alert (03/14 08:07) Orientation: Oriented x 4 (03/14 08:07) MEDICATIONS ORDERED / RECOMMENDED TO BE CONTINUED for: ZEV BELLO cholecalciferol (Vitamin D3 5000 intl units oral capsule) 1 Capsule By Mouth once a day. am. Freetext Medication (NEW PRESCRIPTIONS) PLEASE FOLLOW NEW PRESCRIPTION Percocet Follow surgeon instructions for aspirin, senokot, ibuprofen. hydroCHLOROthiazide (hydroCHLOROthiazide 25 mg oral tablet) 1 Tab(s) By Mouth once a day. am. losartan (losartan 50 mg oral tablet) 1 Tab(s) By Mouth once a day. am. metoprolol (Toprol XL 25 mg oral tablet, extended release) 1 Tab(s) By Mouth once a day. am., Beta-B' ocular lubricant (Refresh) 1 Drops Both Eyes as needed Dry Eyes. ubiquinone (Coenzyme Q-10) (Co-Q10 100 mg oral capsule) 1 Capsule By Mouth Bedtime. MEDICATION CHANGE DETAILS NEW MEDICATIONS None UPDATED MEDICATIONS None UNCHANGED MEDICATIONS Other Medications cholecalciferol (Vitamin D3 5000 intl units oral capsule) 1 Capsule By Mouth once a day. am. Comment Freetext Medication (NEW PRESCRIPTIONS) PLEASE FOLLOW NEW PRESCRIPTION Percocet Follow surgeon instructions for aspirin, senokot, ibuprofen. Comment hydroCHLOROthiazide (hydroCHLOROthiazide 25 mg oral tablet) 1 Tab(s) By Mouth once a day. am. Comment losartan (losartan 50 mg oral tablet) 1 Tab(s) By Mouth once a day. am. Comment metoprolol (Toprol XL 25 mg oral tablet, extended release) 1 Tab(s) By Mouth once a day. am., Beta-B' Comment ocular lubricant (Refresh) 1 Drops Both Eyes as needed Dry Eyes. Comment ubiquinone (Coenzyme Q-10) (Co-Q10 100 mg oral capsule) 1 Capsule By Mouth Bedtime. Comment STOP TAKING THESE MEDICATIONS naproxen (Aleve sodium 220 mg oral tablet) 1 Tab(s) By Mouth as needed Pain/Discomfort. DO NOT TAKE UNTIL YOU TALK TO YOUR DOCTOR None Inpatient Medication History (active at the time of summary): Do not administer these medications until re-evaluated by a provider at the next level of care. hydroCHLOROthiazide 25 mg Tab (Hydrodiuril GEq) (hydroCHLOROthiazide) 25 mg = 1 Tab, PO, Tab, Daily,, x 30 Day(s), 03/15/18 9:00:00 EDT Losartan 50 mg Tab (Cozaar GEq) (losartan) 50 mg = 1 Tab, PO, Tab, Daily,, x 30 Day(s), 03/14/18 9:00:00 EDT Last Dose: 03/14/18 08:07:00 Metoprolol XL 25 mg Tab (Toprol XL GEq) (Toprol XL) 25 mg = 1 Tab, PO, Tab ER, Daily,, x 30 Day(s), 03/14/18 9:00:00 EDT Last Dose: 03/14/18 08:07:00 Aspirin 325 mg EC Tab (Ecotrin GEq) (aspirin) 325 mg = 1 Tab, PO, Tab EC, BID, x 30 Day(s), 03/13/18 9:37:00 EDT Last Dose: 03/14/18 08:07:00 PEG Powder 17 Gm (MiraLax GEq) (MiraLax) 17 Gm = 1 Packet, PO, Powder, Daily,, x 1 Day(s), 03/13/18 9:55:00 EDT Last Dose: 03/14/18 08:07:00 COMMENTS and SPECIAL INSTRUCTIONS: Mix with 4 to 8 oz. of water, juice, soda, coffee, or tea until completely dissolved. Patch Removal (Scopolamine Patch Removal) 1 Patch, TransDermal, Patch, ac bkfst, x 30 Day(s), 03/13/18 7:13:00 EDT Last Dose: 03/14/18 04:09:00 Docusate/Senna 50 mg/8.6 mg Tab (Senokot-S GEq) (Senna S) 1 Tab, PO, Tab, BID, x 30 Day(s),, 03/13/18 9:55:00 EDT Last Dose: 03/14/18 08:07:00 COMMENTS and SPECIAL INSTRUCTIONS: For Bowel Management Magnesium Hydroxide 8% Susp 30 mL (Milk of Magnesia) (Milk of Magnesia 8%) 30 mL, PO, Susp, Bedtime, x 1 Time(s)/Dose(s),, 2,400 mg, 03/13/18 9:55:00 EDT Last Dose: 03/13/18 19:58:00 oxygen Nasal Cannula, FIO2/LPM: 2L, 2 L/min, Discontinue on POD # 1 when patient is alert and room air oxygen saturation greater than or equal to 92%. Titrate to keep O2 saturation greater than 91% Patch Removal (Scopolamine Patch Removal) 1 Patch, TransDermal, Patch, Once, 03/13/18 7:13:00 EDT HYDROmorphone 0.5 mg/0.5 mL INJ 0.5 mL (Dilaudid GEq) (Dilaudid Inj) 0.25 mg = 0.25 mL, IV Push, Inject, Q2h, PRN, Pain - Breakthrough, x 30 Day(s), 03/13/18 9:55:00 EDT Naloxone 0.4 mg/mL Vial 1 mL (Narcan GEq) (naloxone) 0.4 mg = 1 mL, IV, Inject, PRN, PRN, See Comments, x 30 Day(s), 03/13/18 9:55:00 EDT OxyCODONE/Acetaminophen 5 mg/325 mg Tab (Percocet GEq) (Percocet 5 mg/325 mg) 2 Tab, PO, Tab, Q4h, x 30 Day(s), PRN See Comments, 03/13/18 9:55:00 EDT Last Dose: 03/14/18 08:07:00 COMMENTS and SPECIAL INSTRUCTIONS: Maximum 4 Gm Acetaminophen/Day for Adults Cyclobenzaprine 10 mg Tab (Flexeril GEq) (Flexeril) 10 mg = 1 Tab, PO, Tab, Q8h, PRN, Muscle Spasms, x 30 Day(s), 03/13/18 9:55:00 EDT Acetaminophen 325 mg Tab (Tylenol GEq) (Tylenol) 650 mg = 2 Tab, PO, Tab, Q4h, PRN, Pain-Mild/Fever greater than 100. 4 (38C), x 30 Day(s), 03/13/18 9:55:00 EDT COMMENTS and SPECIAL INSTRUCTIONS: Maximum 4 Gm Acetaminophen/Day for Adults Nalbuphine 10 mg/mL Inj 1 mL (Nubain GEq) (Nubain) 2.5 mg = 0.25 mL, IV Push, Inject, Q4h, PRN, Itching/Pruritus, x 30 Day(s), 03/13/18 9:55:00 EDT DiphenhydrAMINE 25 mg Tab (Benadryl GEq) (Benadryl) 25 mg = 1 Tab, PO, Tab, Q4h, PRN, Itching/Pruritus, x 30 Day(s), 03/13/18 9:55:00 EDT TraZODone 50 mg Tab (Desyrel GEq) (TraZODone) 25 mg = 0.5 Tab, PO, Tab, Bedtime, PRN, Insomnia/Sleep, x 30 Day(s), 03/13/18 9:55:00 EDT Ondansetron 2 mg/mL Inj 2 mL (Zofran GEq) (Zofran Inj) 4 mg = 2 mL, IV Push, Inject, Q4h, PRN, Nausea/Vomiting, x 30 Day(s), 03/13/18 9:55:00 EDT COMMENTS and SPECIAL INSTRUCTIONS: Administer IV Over 2 Minutes Promethazine 25 mg Suppos (Phenergan GEq) (promethazine) 25 mg = 1 Suppos, Rectal, Suppos, Q8h, PRN, Nausea/Vomiting, x 30 Day(s), 03/13/18 9:55:00 EDT PEG Powder 17 Gm (MiraLax GEq) (MiraLax) 17 Gm = 1 Packet, PO, Powder, Daily, PRN, Constipation, x 30 Day(s), 03/13/18 9:55:00 EDT COMMENTS and SPECIAL INSTRUCTIONS: Mix with 4 to 8 oz. of water, juice, soda, coffee, or tea until completely dissolved. Bisacodyl 10 mg Suppos (Dulcolax GEq) (Dulcolax) 10 mg = 1 Suppos, Rectal, Suppos, BID, PRN, Constipation, x 30 Day(s), 03/13/18 9:55:00 EDT Mylanta/Maalox Plus Susp 30 mL (GEq) (Mylanta) 30 mL, PO, Susp, QID, x 30 Day(s), PRN Indigestion/Heartburn, 03/13/18 9:55:00 EDT COMMENTS and SPECIAL INSTRUCTIONS: SHAKE WELL Bethanechol 25 mg Tab (Urecholine GEq) (Bethanechol Oral) 25 mg = 1 Tab, PO, Tab, Q8h, PRN, See Comments, x 72 hr, 03/13/18 9:55:00 EDT Artificial Tears PF Eye Mani 0.6 mL (Hypotears PF GEq) (Hypotears PF Eye Mani) 1 Drop, Eyes-Both, Eye Mani, QID, x 30 Day(s), PRN Dry Eyes, 03/13/18 9:00:00 EDT CloNIDine 0.1 mg Tab (Catapres GEq) (CloNIDine) 0.1 mg = 1 Tab, PO, Tab, Q6h, PRN, See Comments, x 30 Day(s), 03/13/18 9:00:00 EDT Lactated Ringers 1,000 mL 1,000 ml, 100 mL/hr, IV, x 30 Day(s), 1,000 mL, Infusion, 03/13/18 9:37:00 EDT, 80.7 kg Last Dose: 03/14/18 04:07:59 INACTIVE MEDICATIONS GIVEN IN THE LAST 36 HOURS: Medications Discontinued or Completed in the last 36 hours: Glycopyrrolate 0.2 mg/mL Inj 2 mL (Robinul GEq) 0.2 mg = 1 mL, IV, Inject, Once Last Dose: 03/13/18 09:55:00 COMMENTS and SPECIAL INSTRUCTIONS: 0.2mg/1mL Dose/Total Volume (Anesthesia) Neostigmine 1 mg/mL Inj 3 mL (Prostigmin GEq) 1 mg = 1 mL, IV, Inject, Once Last Dose: 03/13/18 09:55:00 COMMENTS and SPECIAL INSTRUCTIONS: 1mg/1mL Dose/Total Volume (Anesthesia) Glycopyrrolate 0.2 mg/mL Inj 2 mL (Robinul GEq) 0.2 mg = 1 mL, IV, Inject, Once Last Dose: 03/13/18 09:53:00 COMMENTS and SPECIAL INSTRUCTIONS: 0.2mg/1mL Dose/Total Volume (Anesthesia) Neostigmine 1 mg/mL Inj 3 mL (Prostigmin GEq) 1 mg = 1 mL, IV, Inject, Once Last Dose: 03/13/18 09:53:00 COMMENTS and SPECIAL INSTRUCTIONS: 1mg/1mL Dose/Total Volume (Anesthesia) Phenylephrine 100 mcg/mL 10 mL Syringe (Elton-Synephrine GEq) 100 mcg = 1 mL, IV, Inject, Once Last Dose: 03/13/18 09:39:00 COMMENTS and SPECIAL INSTRUCTIONS: 100mcg/1mL Dose/Total Volume (Anesthesia) Phenylephrine 100 mcg/mL 10 mL Syringe (Elton-Synephrine GEq) 100 mcg = 1 mL, IV, Inject, Once Last Dose: 03/13/18 09:35:00 COMMENTS and SPECIAL INSTRUCTIONS: 100mcg/1mL Dose/Total Volume (Anesthesia) Ondansetron 2 mg/mL Inj 2 mL (Zofran GEq) 4 mg = 2 mL, IV, Inject, Once Last Dose: 03/13/18 09:29:00 COMMENTS and SPECIAL INSTRUCTIONS: 4mg/2mL Dose/Total Volume (Anesthesia) Phenylephrine 100 mcg/mL 10 mL Syringe (Elton-Synephrine GEq) 100 mcg = 1 mL, IV, Inject, Once Last Dose: 03/13/18 09:28:00 COMMENTS and SPECIAL INSTRUCTIONS: 100mcg/1mL Dose/Total Volume (Anesthesia) Phenylephrine 100 mcg/mL 10 mL Syringe (Elton-Synephrine GEq) 100 mcg = 1 mL, IV, Inject, Once Last Dose: 03/13/18 09:20:00 COMMENTS and SPECIAL INSTRUCTIONS: 100mcg/1mL Dose/Total Volume (Anesthesia) Phenylephrine 100 mcg/mL 10 mL Syringe (Elton-Synephrine GEq) 50 mcg = 0.5 mL, IV, Inject, Once Last Dose: 03/13/18 09:11:00 COMMENTS and SPECIAL INSTRUCTIONS: 50mcg/0.5mL Dose/Total Volume (Anesthesia) Rocuronium 10 mg/mL Inj 5 mL (Zemuron) 5 mg = 0.5 mL, IV, Inject, Once Last Dose: 03/13/18 09:01:00 COMMENTS and SPECIAL INSTRUCTIONS: 5mg/0.5mL Dose/Total Volume (Anesthesia) Rocuronium 10 mg/mL Inj 5 mL (Zemuron) 5 mg = 0.5 mL, IV, Inject, Once Last Dose: 03/13/18 08:44:00 COMMENTS and SPECIAL INSTRUCTIONS: 5mg/0.5mL Dose/Total Volume (Anesthesia) FentaNYL 50 mcg/mL Inj 2 mL (Sublimaze GEq) 50 mcg = 1 mL, IV, Inject, Once Last Dose: 03/13/18 08:38:00 COMMENTS and SPECIAL INSTRUCTIONS: 50mcg/1mL Dose/Total Volume (Anesthesia) Glycopyrrolate 0.2 mg/mL Inj 2 mL (Robinul GEq) 0.2 mg = 1 mL, IV, Inject, Once Last Dose: 03/13/18 08:30:00 COMMENTS and SPECIAL INSTRUCTIONS: 0.2mg/1mL Dose/Total Volume (Anesthesia) Ondansetron 2 mg/mL Inj 2 mL (Zofran GEq) 4 mg = 2 mL, IV, Inject, Once Last Dose: 03/13/18 08:04:00 COMMENTS and SPECIAL INSTRUCTIONS: 4mg/2mL Dose/Total Volume (Anesthesia) FentaNYL 50 mcg/mL Inj 2 mL (Sublimaze GEq) 50 mcg = 1 mL, IV, Inject, Once Last Dose: 03/13/18 07:44:00 COMMENTS and SPECIAL INSTRUCTIONS: 50mcg/1mL Dose/Total Volume (Anesthesia) Propofol 10 mg/mL Vial 20 mL (Diprivan GEq) 150 mg = 15 mL, IV, Inject, Once Last Dose: 03/13/18 07:44:00 COMMENTS and SPECIAL INSTRUCTIONS: 150mg/15mL Dose/Total Volume (Anesthesia) Lidocaine 2% Vial 5 mL PF (Xylocaine GEq) 80 mg = 4 mL, IV, Inject, Once Last Dose: 03/13/18 07:44:00 COMMENTS and SPECIAL INSTRUCTIONS: 80mg/4mL Dose/Total Volume (Anesthesia) Rocuronium 10 mg/mL Inj 5 mL (Zemuron) 40 mg = 4 mL, IV, Inject, Once Last Dose: 03/13/18 07:44:00 COMMENTS and SPECIAL INSTRUCTIONS: 40mg/4mL Dose/Total Volume (Anesthesia) Dexamethasone Sodium Phosphate 10 mg/mL Vial 1 mL (Decadron GEq) 5 mg = 0.5 mL, IV Push, Inject, Once,, 03/13/18 7:14:00 EDT Last Dose: 03/13/18 07:17:00 Metoclopramide 10 mg Tab (Reglan GEq) 5 mg = 0.5 Tab, IV, Tab, Once,, 03/13/18 7:13:00 EDT Last Dose: 03/13/18 07:16:00 Scopolamine 1.5 mg Patch (Transderm Scop GEq) 1.5 mg = 1 Patch, TransDermal, Patch, preop,, x 30 Day(s), 03/13/18 7:13:00 EDT Last Dose: 03/13/18 07:19:00 CeFAZolin (RTU) 2 Gm, IVPB, Pre-Procedure, x 30 Day(s) Last Dose: 03/13/18 08:01:00 Aspirin 325 mg EC Tab (Ecotrin GEq)(unverified) 325 mg = 1 Tab, PO, Tab EC, 03/13/18 9:37:00 EDT Last Dose: 03/14/18 08:07:00 docusate-senna(unverified) 1 Tab, PO, Tab,, 03/13/18 9:55:00 EDT Last Dose: 03/14/18 08:07:00 Losartan 50 mg Tab (Cozaar GEq)(unverified) 50 mg = 1 Tab, PO, Tab,, 03/14/18 9:00:00 EDT Last Dose: 03/14/18 08:07:00 Metoprolol XL 25 mg Tab (Toprol XL GEq)(unverified) 25 mg = 1 Tab, PO, Tab ER,, 03/14/18 9:00:00 EDT Last Dose: 03/14/18 08:07:00 PEG Powder 17 Gm (MiraLax GEq)(unverified) 17 Gm = 1 Packet, PO, Powder,, 03/13/18 9:55:00 EDT Last Dose: 03/14/18 08:07:00 Patch Removal(unverified) 1 Patch, TransDermal, Patch, 03/13/18 7:13:00 EDT Last Dose: 03/14/18 04:09:00 Clindamycin (RTU)(unverified) 900 mg, IVPB, 03/13/18 9:37:00 EDT, Prophylaxis Last Dose: 03/13/18 21:26:00 docusate-senna(unverified) 1 Tab, PO, Tab,, 03/13/18 9:55:00 EDT Last Dose: 03/13/18 19:56:00 Magnesium Hydroxide 8% Susp 30 mL (Milk of Magnesia)(unverified) 30 mL, PO, Susp,, 2,400 mg, 03/13/18 9:55:00 EDT Last Dose: 03/13/18 19:58:00 Clindamycin (RTU)(unverified) 900 mg, IVPB, 03/13/18 9:37:00 EDT, Prophylaxis Last Dose: 03/13/18 14:20:00 FentaNYL 50 mcg, IV Push, Inject, Q5min, PRN, See Comments, x 4 Time(s)/Dose(s), 03/13/18 7:14:00 EDT Last Dose: 03/13/18 10:27:00 Midazolam 1 mg/mL Vial 5 mL (Versed GEq) 5 mg = 5 mL, IV Push, Inject, Once, PRN, See Comments, 03/13/18 7:12:00 EDT Last Dose: 03/13/18 07:07:00 Lactated Ringers 1000 mL IV, 100 mL, Infusion, Once Last Dose: 03/13/18 10:11:00 Lactated Ringers 1000 mL IV, 1,000 mL, Infusion, Once Last Dose: 03/13/18 09:47:00 Lactated Ringers 1000 mL IV, 1,000 mL, Infusion, Once Last Dose: 03/13/18 08:18:00 FOLLOW-UP APPOINTMENTS: Provider: Specialty: Address: Date: Janet Parson DO Orthopaedic Surg [address] [place], [place] [id number] (1) 03/23/18 10:45 am Provider: Specialty: Address: Date: PCP Unknown Physician Family Practice Follow-up as needed Provider: Specialty: Address: Date: [facility] Comment: phone: [phone] for questions will provide physical therapy 3 days per week for 2 weeks ADVANCE DIRECTIVE/HEALTH CARE DECISIONS: Advance Directive/Health Care Decisions Executed by Patient: : No Information Obtained From: Patient Advance Directive Health Care Information Offered: Patient declines SELECTED LAB RESULTS Lab Result Order Date Hemoglobin 11.7 gm/dL 03/14/2018 Hematocrit 32.6 % 03/14/2018 WBC Count 15.1 thou/mcL 03/14/2018 Platelet Count 169 thou/mcL 03/14/2018 Sodium Level 139 mMol/L 03/14/2018 Potassium Level 4.2 mMol/L 03/14/2018 Creatinine 1.16 mg/dL 03/14/2018 BUN 17 mg/dL 03/14/2018 Glucose Level 132 mg/dL 03/14/2018 Physician Signature Date/Time PATIENT EDUCATION Venous Thromboembolism Prevention; Incentive Spirometer; Constipation, Adult; Pain Medicine Instructions; Fall Prevention in the Home, [id number]; CO - Mindful Eating - Building New Habits (CUSTOM); C O - Malone to Eating Healthy (CUSTOM) PROGRESS NOTES Observed: 03/14/2018 Status: F Source: [facility] 7:[facility] REPOSIT[facility] Patient: ZEV BELLO Age: 72 years Sex: Female : 1945 Associated Diagnoses: None Author: Dinesh ELIZONDO , Judson Dumont Assessment Assessment Diagnosis: Osteoarthritis of right shoulder ([id number] M19.011, Working, Medical). Plan Prophylaxis For Prevention of Deep Vein Thrombosis Will Be Per Surgeon. Management of NSAIDS, Anticoagulants, Antibiotics, and Pain Medications will also be per surgeon. Encourage venous return and ambulation exercises Home medication reconciliation completed. This patient will be considered acceptable for discharge from a medical perspective if the following criteria are met 1. Oxygen Saturations > 90% on Room Air 2. Able to void without difficulty 3. Meets Physical Therapy goals for discharge 4. Passing Flatus 5. Cleared for discharge by surgeon s/p TSR 03/13/18 IV Dilaudid / Morphine ordered on an as needed basis for unbearable pain unrelieved by oral pain medications. PO Tylenol ordered for mild pain per protocol. Osteoarthritis ( M 19.9 ) - Chronic pre-existing condition present on admission - additional NSAIDS on hold Hypertension ( I 10 ) - chronic pre-existing condition present on admission. Plan to monitor with prescribed antihypertensive medications. BP 128/74 h/o Previous UTI ( N 39.0 ) - previous diagnosis - treated with antibiotics Leukocytosis noted ( D 72.829 ) - Acute occurrence since surgery - likely related to stress response. Plan to watch for any signs or symptoms of infection or fever. Medical Illnesses: 1. Hypertension, onset 2009. Currently being managed by her primary care physician. 2. History of recurrent UTI within the last year. Supervising Physician Comments Documentation By: Consulting Physician. Chief Complaint Postoperative medical care Postoperative Information Postoperative Follow Up Postoperative Follow Up: Day 1. Health Status Allergies Allergic Reactions (Selected) Severe Nitrofurantoin- Heart rate fast and vomiting. Unknown Carafate- Unknown. Codeine- Unknown. Oxaprozin- Unknown. Sulfa drugs- Unknown. Vioxx- Unknown. Subjective Patient's pain control appears adequately controlled Review of Systems General - Denies fever Eyes - Denies vision changes Ear/Nose/Throat - Denies sore throat Cardiac - Denies chest pain Respiratory - Denies shortness of breath Gastrointestinal - Denies nausea or vomiting Genitourinary - Denies urinary retention Musculoskeletal - Denies calf pain Neurologic - Denies seizure Skin - Denies rash Objective Last Charted Vital Signs Temperature: 97.9 (03/14 03:41) Pulse: 81 (03/14 03:41) Respiration: 15 (03/14 03:41) BP: 128/74 (03/14 03:41) Pulse Ox: 98 (03/14 03:41) Oxygen Delivery: Nasal cannula (03/13 20:05) O2 Device Flow: 2 L/min Pain Score: 4 (03/14 04:09) General - NAD; Conversant Skin - Normal Turgor and Texture; No Rashes or Ulcerations noted Eyes - PERRLA; Anicteric Sclerae ENMT - Hearing Intact; Oropharynx Clear with Moist Mucosa Cardiology - Regular rate and rhythm, No peripheral edema noted Respiratory - Clear to auscultate bilaterally, No Accessory Muscle use noted Abdominal - Soft and Nontender, No HSM noted Musculoskeletal - Full ROM in all 4 extremities; No clubbing or Cyanosis of Digits noted Psychiatric - A and O x 3; Appropriate Affect Results Review Labs - Last 36 hours (Max 2 / lab test) CHEMISTRY Sodium 139 (03/14 03:30) Potassium 4.2 (03/14 03:30) 3.5 (03/13 06:11) Chloride 102 (03/14 03:30) CO2 31 (03/14 03:30) Glucose 132 (03/14 03:30) Glucose POCT No result BUN 17 (03/14 03:30) Creatinine 1.16 (03/14 03:30) Calcium Total 8.8 (03/14 03:30) Magnesium No result HEMATOLOGY WBC 15.1 (03/14 03:30) RBC 4.07 (03/14 03:30) Hb 11.7 (03/14 03:30) Hematocrit 32.6 (03/14 03:30) Platelets 169 (03/14 03:30) MCV 80.1 (03/14 03:30) MCH 28.7 (03/14 03:30) RDW 13.5 (03/14 03:30) MCHC 35.9 (03/14 03:30) Neutrophil Ab 13.4 (03/14 03:30) Monocyte Ab 0.8 (03/14 03:30) Eosinophil Ab 0.0 (03/14 03:30) Basophil Ab 0.0 (03/14 03:30) Lymphocyte Ab 0.9 (03/14 03:30) OTHER LABS Est CrCl IBW (mL/min)-RX 39.45 mL/min (03/14 03:30) BUN / Creatinine Ratio 15 (03/14 03:30) MPV 8.6 FL (03/14 03:30) Diff Method AUTOMATED DIFFERENTIAL (03/14 03:30) Neutrophil Percent 89.0 % (03/14 03:30) Lymphocyte Percent 5.8 % (03/14 03:30) Monocyte Percent 5.1 % (03/14 03:30) Eosinophil Percent 0.0 % (03/14 03:30) Basophil Percent 0.1 % (03/14 03:30) X-rays last 36 hours XR Shoulder 2+ Views RT: 03/13/18 10:25:00 See Radiology Report for More Detail General Results CBC WITH DIFFERENTIAL Collected: 03/14/2018 Status: F Source: [facility] 3:30 AM [facility] REPOSITORY Order Comment: Call Gen Med if Abnormal TYPE CODE TESTS RESULT OUT OF REFERENCE UNITS RANGE LAB 95144-7(L 7.5-11.2 FL OINC) MPV 8.6 Normal LAB 05835-9(L 3.80-5.60 x(10)6/mcL OINC) Red 4.07 Normal Blood Cell Count LAB 47881-3(L 40-74 % OINC) 89.0 High Neutrophil Percent LAB 76069-6(L 4-13 % OINC) 5.1 Normal Monocyte Percent LAB 718-7(MARLENA 11.5-17.0 gm/dL NC) 11.7 Normal Hemoglobin LAB 08248-0(L 140-415 thou/mcL OINC) 169 Normal Platelet Count LAB 704-7(MARLENA 0.0-0.2 thou/mcL NC) 0.0 Normal Basophil Absolute LAB 751-8(MARLENA 1.5-7.8 thou/mcL NC) 13.4 High Neutrophil Absolute LAB 71713-0(L 0-3 % OINC) 0.1 Normal Basophil Percent LAB 32859-1(L 32.0-36.0 gm/dL OINC) MCHC 35.9 Normal LAB 76801-4(L 80-98 FL OINC) MCV 80.1 Normal LAB 64229-7(L OINC) Diff Normal Method AUTOMATED DIFFERENTIAL LAB 41740-3(L 0-7 % OINC) 0.0 Normal Eosinophil Percent LAB 08644-6(L 34.0-50.0 % OINC) 32.6 Low Hematocrit LAB 731-0(MARLENA 0.7-4.5 thou/mcL NC) 0.9 Normal Lymphocyte Absolute LAB 84643-9(L 11.7-15.0 % OINC) RDW 13.5 Normal LAB 711-2(MARLENA 0.0-0.4 thou/mcL NC) 0.0 Normal Eosinophil Absolute LAB 35899-0(L 4.0-10.5 thou/mcL OINC) WBC 15.1 High Count LAB 00511-6(L 14-46 % OINC) 5.8 Low Lymphocyte Percent LAB 03079-7(L 27.0-34.0 Picograms OINC) MCH 28.7 Normal LAB 742-7(MARLENA 0.1-1.0 thou/mcL NC) 0.8 Normal Monocyte Absolute BASIC METABOLIC PANEL Collected: 03/14/2018 Status: F Source: [facility] 3:30 AM [facility] REPOSITORY Order Comment: Call Gen Med if Abnormal TYPE CODE TESTS RESULT OUT OF RANGE REFERENCE UNITS LAB 2028-9(MARLENA 21-32 mMol/L NC) Carbon Normal Dioxide Level 31 LAB 51614-6(LO 8.5-10.6 mg/dL INC) Calcium Normal Total 8.8 LAB 2823-3(MARLENA 3.5-5.1 mMol/L NC) Normal Potassium Level 4.2 LAB 2160-0(MARLENA 0.55-1.02 mg/dL NC) High Creatinine 1.16 LAB 2075-0(MARLENA 98-107 mMol/L NC) Chloride Normal Level 102 LAB 2951-2(MARLENA 136-145 mMol/L NC) Sodium Normal Level 139 LAB 3097-3(MARLENA NC) BUN / Normal Creatinine Ratio 15 LAB 42126-3(LO 7-18 mg/dL INC) BUN Normal 17 LAB 64999-2(LO 74-106 mg/dL INC) High Glucose Level 132 ANESTHESIA POSTOPERATIVE Observed: 03/13/2018 Status: F Source: [facility] NOTE 4:31 PM [facility]ALTH SYSTEM REPOSITORY Patient: ZEV BELLO MRN: ([id number] [facility]: [id number] Age: 72 years Sex: Female : 1945 Associated Diagnoses: None Author: Colby Ruiz DO Supervising Physician Comments Documentation By: Attending Physician. Subjective Subjective: Patient participated in the evaluation: Yes. Nausea: not present. Vomiting: not present. Pain: acceptable pain control. Objective Objective: Vital Signs: Last Charted Vital Signs Temperature: 97.3 (03/13 15:00) Pulse: 68 (03/13 15:00) Respiration: 12 (03/13 15:00) BP: 127/74 (03/13 15:00) Pulse Ox: 97 (03/13 15:00) Oxygen Delivery: Nasal cannula (03/13 13:41) O2 Device Flow: 2 L/min Pain Score: 3 (03/13 13:41) . Mental Status: alert and oriented. Postoperative hydration: adequate. Assessment Assessment: Post anesthetic condition: no anesthetic complications, the patient is doing well, pain is adequately controlled. Airway patent: yes. Plan Plan: Postanesthesia Plan: post anesthetic surveillance concluded. XR SHOULDER 2+ VIEWS Observed: 03/13/2018 Status: F Source: [facility] RT 10:25 AM [facility] SYSTEM REPOSITORY EXAMINATION TYPE: XR Shoulder 2+ Views RT DATE OF EXAM : 03/13/2018 10:25 AM HISTORY: Postoperative COMPARISON: NONE FINDINGS: Status post RIGHT total shoulder arthroplasty. Air within the surrounding soft tissues is consistent with recent postoperative state. No acute dominic-implant fracture is evident, given AP frontal and obli que projections. Widening of the acromioclavicular joint with 9 mm focus of heterotopic ossification consistent with postsurgical change. IMPRESSION: Status post RIGHT total shoulder arthroplasty with recent postoperative changes. Darcie Garcia thanks you for the opportunity to care for your patient. Workstation ID: [id number] FINAL REPORT Dictated By: Rafi Wynne MD 03/13/2018 11:13 Assigned Physician: Rfai Wynne MD Reviewed and Electronically Signed By: Rafi Wynne MD 03/13/2018 11:28 Transcribed by: MARY 03/13/2018 11:14 Technologist: ECTOR OR NURSING Observed: 03/13/2018 Status: C Source: [facility] 9:58 AM [facility] SYSTEM REPOSITORY CO NA OR Nursing Record Summary Primary Physician: Janet Parson DO Finalized Date/Time: 03/13/18 11:32:21 Pt. Name: ZEV BELLO /Sex: 1945 Female Med Rec #: [id number] Physician: Janet Parson DO Financial #: [id number] Pt. Type: I Room/Bed: [facility]/ Admit/Disch: 03/13/18 05:26:00 - Institution: CO NA OR Case Times Entry 1 Patient Times Patient In Room 03/13/18 07:36:00 Patient Out Room 03/13/18 10:05:00 Surgical Times Start Time 03/13/18 08:35:00 Stop Time 03/13/18 09:58:00 Last Modified By: Piedad London RN 03/13/18 10:06:11 CO NA OR Delays Entry 1 Entry 2 Delay Reason Other See Comment Physician in Another Procedure/Location Description BRING PT BACK WHEN PATIENT DRAPED AND OTHER ROOM IS GETTING READY AT 0814. STARTED PER SURGEON Duration (minutes) 6 Min 21 Min Last Modified By: Lita RN , Piedad London RN , Piedad Driver 03/13/18 08:19:22 C 03/13/18 08:40:33 CO NA OR Case Attendees Entry 1 Entry 2 Entry 3 Case Attendee Janet Parson DO, DO, Ivan Huerta CRNA Role Performed Primary Surgeon Anesthesiologist Nurse Rivet Driver Time In 03/13/18 08:34:00 03/13/18 07:36:00 03/13/18 07:36:00 Time Out 03/13/18 09:38:00 03/13/18 10:05:00 03/13/18 10:05:00 Procedure Arthroplasty Shoulder Arthroplasty Shoulder Arthroplasty Shoulder Total(Right) Total(Right) Total(Right) Attendee Comment COVERAGE Relief Reason Last Modified By: Lita RN , Piedad London RN , Piedad Rodriguez RN 03/13/18 10:06:13 C 03/13/18 10:06:13 C 03/13/18 10:06:13 Entry 4 Entry 5 Entry 6 Case Attendee Lita PHIPPS , Beatriz Fernandez [place] Role Performed senior software architect First Scrub Second Scrub Time In 03/13/18 07:36:00 03/13/18 07:36:00 03/13/18 07:36:00 Time Out 03/13/18 10:05:00 03/13/18 10:05:00 03/13/18 10:05:00 Procedure Arthroplasty Shoulder Arthroplasty Shoulder Arthroplasty Shoulder Total(Right) Total(Right) Total(Right) Attendee Comment Relief Reason Last Modified By: Lita RN , Piedad London RN , Piedad London RN , Piedad Driver 03/13/18 10:06:13 C 03/13/18 10:06:13 C 03/13/18 10:06:13 Entry 7 Entry 8 Entry 9 Case Attendee Donna Reilly Case, Attendee Other Case, Attendee Other Role Performed Assistive Personnel Fishing Instructor Fishing Instructor Time In 03/13/18 07:36:00 03/13/18 07:36:00 03/13/18 07:36:00 Time Out 03/13/18 10:05:00 03/13/18 10:05:00 03/13/18 10:05:00 Procedure Arthroplasty Shoulder Arthroplasty Shoulder Arthroplasty Shoulder Total(Right) Total(Right) Total(Right) Attendee Comment CANDELARIO BUSH Relief Reason Last Modified By: Lita RN , Piedad London RN , Piedad London RN , Piedad Driver 03/13/18 10:06:13 C 03/13/18 10:06:13 C 03/13/18 10:06:13 Entry 10 Entry 11 Case Attendee Micheal Hernandez Brandon Role Performed Second Scrub Physician Editor [employer] Time In 03/13/18 07:36:00 03/13/18 09:00:00 Time Out 03/13/18 09:01:00 03/13/18 10:05:00 Procedure Arthroplasty Shoulder Arthroplasty Shoulder Total(Right) Total(Right) Attendee Comment Relief Reason Last Modified By: Lita RN , Piedad London RN , Piedad Driver 03/13/18 10:06:13 C 03/13/18 10:06:13 CO NA OR General Case Ceo & Co Founder 1 OR CO NA 05 ASA Class 2 Case Wound Class Clean Specialty Orthopedic Surgery Case Level Ortho Complex Diagnosis Preop Diagnosis M75.41 Postop Same As Preop Yes Postop Diagnosis M75.41 This is a down time No record. Last Modified By: Piedad London RN 03/13/18 08:20:10 CO NA OR Surgical Procedures Entry 1 Procedure Arthroplasty Shoulder Primary Procedure Yes Total Modifiers Right Procedure Wound Clean Class Primary Surgeon Janet Parson DO Surgical Service Orthopedic Surgery Anesthesia Type General Procedure Performed Right total shoulder tsa rtc bcip rep cont rel tenot tend transf Start 03/13/18 08:35:00 Stop 03/13/18 09:58:00 Last Modified By: Piedad London RN 03/13/18 10:06:18 CO NA OR Patient Positioning Entry 1 Abdomen Pre N/A Skin Condition Warm, Dry, Intact Procedure Before Body Position Beach Chair Pressure Points Yes Assessed? Right Arm Position At side Left Arm Position On armboard Arm Secured Right, Left Positioning Device Arm positioner, Bed Specialty, Foam, radio station manager, Pillows Right Leg Position Flexed Left Leg Position Flexed Safety Strap Applied Yes Safety Strap Thighs Location Positioned By Donna Reilly Gaskins Positioning Comment PATIENT POSITIONED IN [facility] , Ivan, BLUFFTON CHAIR; FOAM FACE Piedad London RN MASK OVER FACE FOR David Driver Joseph PROTECTION AND HEAD STABILIZATION; BLACK PADDED WEDGE UNDER LEGS; FOAM PROTECTING HEELS; NONOPERATIVE ARM POSITIONED ON FOAM PADDED ARM BOARD Procedure Arthroplasty Shoulder Total(Right) Last Modified By: Piedad London RN 03/13/18 08:20:56 CO NA OR Antithrombolytic Devices Entry 1 IPC Intermittent Right, Left IPC Setting PRE SET Pneumatic Compression IPC Size Knee Bariatric No ANDRÉS Hose ANDRÉS Hose Right, Left ANDRÉS Size Thigh Foot Pump Last Modified By: Piedad London RN 03/13/18 08:21:01 CO NA OR Skin Prep Entry 1 Hair Removal Method None Skin Prep Prep Agents Chlorhexidine Gluconate Prep Site ENTIRE OPERATIVE SIDE 2% w Alcohol NECK, SHOULDER TO FINGERS Prep by Piedad London RN Procedure Arthroplasty Shoulder Total(Right) Last Modified By: Piedad London RN 03/13/18 08:22:21 CO NA OR Fire Risk Assessment Entry 1 Alcohol Based Prep Yes Solution Dry Time >3 Minutes or According to Manufactures Instructions. No Pooling Observed. (No Alcohol Prep used Select N/A) Fire Risk Factors Yes = 1, No or N/A = 0 Procedure Yes Open O2 Source No Site/Incision Above (Face Mask/Nasal Xyphoid Process Cannula) Ignition source Yes Fire Risk Total 2 (Cautery, Laser, Score Fiberoptic Light Source) Last Modified By: Piedad London RN 03/13/18 08:22:27 Post-Care Text: Standard Fire Safety precautions - Score 1 or 2 Prep drying time - minimum three minutes Protected heat source (i.e bovie catherine) Standard draping procedure HIGH RISK FIRE PRACTICES - SCORE 3 *RN verbalizes to the team the presence of high-risk score and verifies the fire triangle *Write High Risk on the white board *Verbally confirm lowest effective setting on the heat source *Minimize 02 entrapment by proper draping of the patient *Encourage use of wet sponges *Available basin with sterile water and bulb syringe for suppression *Anesthesia Awareness and communication of oxygen flows/concentration *Allow for dispersion of 02 at least 1 minute before and during electrosurgical and laser use and communicate to surgeon *Use lowest tolerable concentration of 02 (less than 30% when able) CO NA OR Surgical Safety Checklist Entry 1 TIme Out Verified 03/13/18 08:35:00 Procedure Arthroplasty Shoulder At: Total(Right) Pre-Induction Patient confirms Before Introduction of Additional identity, site and Incision/Suspend surgical team and/or Verification procedure, Anesthesia all Activities new members, Entire safety check complete, (Before surgical team verbally pulse ox on, Confirm Incision/Start of confirm patient, site, patient allergies, Procedure) procedure, Surgeon Implants, devices, reviews: what are the special equipment critical or unexpected available and steps, operative functioning duration, and anticipated blood loss?, Anesthesia reviews: are there any patient-specific concerns?, Nursing team reviews: has sterility been confirmed and are there any patient-specific concerns?, Antibiotic infused/ing and redosing discussed if applicable, Relevant images and results properly labeled and correctly displayed if applicable Fire Risk Yes Assessment Completed Last Modified By: Piedad London RN 03/13/18 08:41:09 CO NA OR Cautery Entry 1 Cautery and Settings Type Monopolar Unit ID Number 13 Coagulation Setting 60 Cut Setting 60 Grounding Pad Thigh left anterior Applied By Lita PHIPPS , Piedad Driver Location Last Modified By: Piedad London RN 03/13/18 08:22:57 CO NA OR Medication Entry 1 Entry 2 Entry 3 Times Med Administered Medication MANI SCRB SURG PVI 10% SPONGE SURGIFOAM GEL SZ PEROXIDE HYDROGEN 4OZ 4OZ POVIDONE IODINE 50 1973 F0010 SKIN PREP [id number] Medication Dosage 4 Fl Oz 1 SPONGE 4 Fl Oz Route of TOPICAL TOPICAL TOPICAL Administration Meds Administered By Princess MARQUEZ , Janet Parson DO , Janet Chapman DO Medication Comment BETADINE SOAKED RAYTEC FOR IRRIGATION Last Modified By: Lita PHIPPS , Piedad London RN , Piedad Rodriguez RN 03/13/18 08:24:13 C 03/13/18 08:24:13 C 03/13/18 08:24:13 Entry 4 Entry 5 Entry 6 Times Med Administered Medication CO TRANEXAMIC ACID COS VANCOMYCIN 1 GM CO THROMBIN SPRAY KIT 5 1000MG 10ML VIAL POWDER VANCOCIN 000 UNITS/1 VIAL POWDER 95283-440-74 Medication Dosage 2 gm 1G 5000 UNITS Route of TOPICAL TOPICAL TOPICAL Administration Meds Administered By Janet Parson DO, DO , Janet Chapman DO Medication Comment Last Modified By: Lita PHIPPS , Piedad London RN , Piedad Rodriguez RN 03/13/18 08:24:13 C 03/13/18 08:24:13 C 03/13/18 08:24:13 CO NA OR Irrigation Entry 1 Irrigant 0.9% Saline Irrigant Volume 2000 mL Last Modified By: Piedad London RN 03/13/18 08:24:30 CO NA OR Implants Entry 1 Entry 2 Entry 3 Description BONE CEMENT SIMPLEX Aff[employer] 44mm pegged [id number] CATALYST FULL DOSE [id number] glenoid Material PE SIZE C HUMERAL IMPLANT [id number] Serial Number NA NA NA Lot Number [id number] Catalog Number [id number] Tenter Feeder SIMPLEX [employer] CATALYST Expiration Date 10/19/19 01/04/21 10/25/18 No Expiration Date No No No Implant Site RIGHT SHOULDER RIGHT SHOULDER RIGHT SHOULDER Quantity 2 1 1 Tissue Material Used to Prepare/Process Tissue Processed By: Last Modified By: Lita PHIPPS , Piedad London RN , Piedad Rodriguez RN 03/13/18 08:56:36 C 03/13/18 09:06:12 C 03/13/18 09:09:18 CO NA OR Counts Entry 1 Entry 2 Instrument Count N/A N/A Surgeon Notified of No Yes Count Sponge Count Initial Count Done 1st count correct X-ray Taken No No Sharps/Miscellaneous Initial Count Done 1st count correct Count RN Performing Count Piedad London RN, RN, Julia C Count Performed with Beatriz Ordoñez Marcy E. Comment Procedure Arthroplasty Shoulder Arthroplasty Shoulder Total(Right) Total(Right) Last Modified By: Piedad London RN, RN, Julia C 03/13/18 08:24:45 C 03/13/18 08:24:45 CO NA OR Dressing/Packing Entry 1 Dressing Dressing/Packing OPERATIVE ARM Site Dressing/Packing MASTISOL, STERI STRIPS, Comment ADAPTIC, 4X4'S, ABD, MEDIPORE TAPE, ULTRA SLING Last Modified By: Piedad London RN 03/13/18 08:24:49 CO NA OR Temperature Regulation Entry 1 Unit ID 13 Site LOWER BODY Setting PER ANESTHESIA Warm blankets, Warm fluids Last Modified By: Piedad London RN 03/13/18 08:24:57 CO NA OR Final Count Entry 1 Sponges Correct Yes Sharps/Miscellaneous Yes Correct Instruments Correct n/a Count Performed with Oskar Guajardo RN Performing Count Piedad London RN Surgeon Notified of Yes Count X-ray Taken No Comment Also performed with Physician's Editor [employer]. Procedure Arthroplasty Shoulder Total(Right) Last Modified By: Piedad London RN 03/13/18 09:48:20 CO NA OR PNDS Risk of Impaired Skin Entry 1 Interventions/Activi Identifies physical OUTCOME STATEMENTS: The patient is free ties: alterations that may from visible signs and affect symptoms of injury procedure-specific related to positioning, positioning., Positions immobilization, the patient., pressure and/or Implements protective shearing forces. measures to prevent skin or tissue injury due to thermal, chemical, or mechanical sources., Uses supplies and equipment within safe parameters., Evaluates for signs and symptoms of injury as a result of positioning, immobilization, pressure and/or shearing forces. Last Modified By: Piedad London RN 03/13/18 08:25:00 CO NA OR PNDS Risk of Altered Body Temp Entry 1 Interventions/Activi Monitors body OUTCOME STATEMENT: The patient is at or ties: temperature., returning to Implements normothermia at the thermoregulation conclusion of the measures., Evaluates operative period. response to thermoregulation. Last Modified By: Piedad London RN 03/13/18 08:25:05 CO NA OR PNDS Risk of Infection Entry 1 INTERVENTIONS/ACTIVI Implements aseptic OUTCOME STATEMENT: The patient is free of TIES: technique., Classifies signs and symptoms of surgical wound., infection at the Assesses susceptibility conclusion of the for infection., operative period. Performs skin preparations., Protects from cross-contamination., Monitors for signs and symptoms of infection., Minimizes the length of invasive procedure planning care., Administers prescribed prophylactic treatments., Initiates traffic control., Administers care to invasive device sites., Administers care to wound sites. Last Modified By: Piedad London RN 03/13/18 08:25:09 CO NA OR Patient Debriefing Entry 1 Patient Debriefing Verify name of Skin Assessment Warm, Dry, Intact procedure(s) performed After including site/side, Sponge and needle counts are correct, N/A review specimens and how each is labeled, Discuss equipment, instrument problems reported and case improvements, Review del valle concerns for further patient management Last Modified By: Piedad London RN 03/13/18 08:25:20 CO NA OR PNDS Risk of Injury Entry 1 Interventions/Activi Implements protective OUTCOME STATEMENT: The patient is free ties: measures to prevent from visible signs and injury due to symptoms of injury electrical sources., related to electrical, Implements protective mechanical, radiation measures to prevent or laser. injury due to mechanical sources, Implements latex allergy precautions as needed, Records devices implanted during invasive procedure., Performs required counts., Evaluates for signs and symptoms of laser, electrical, mechanical and radiation injury. Last Modified By: Piedad London RN 03/13/18 08:25:13 CO NA OR Transport from OR Entry 1 Patient Status Awakening Post-op Destination PACU Phase I Via Bed Last Modified By: Piedad London RN 03/13/18 08:25:29 Case Comments <None> Finalized By: Piedad London RN Document Signatures Signed By: Piedad London RN 03/13/18 10:06 Piedad London RN 03/13/18 10:16 Piedad London RN 03/13/18 11:32 PACU I NURSING Observed: 03/13/2018 Status: F Source: [facility] 9:58 AM [facility] SYSTEM REPOSITORY CO NA PACU I Nursing Record Summary Primary Physician: Janet Parson DO Finalized Date/Time: 03/13/18 10:49:33 Pt. Name: ZEV BELLO /Sex: 1945 Female Med Rec #: [id number] Physician: Janet Parson DO Financial #: [id number] Pt. Type: I Room/Bed: / Admit/Disch: 03/13/18 05:26:00 - Institution: CO NA OR Main PACU I Case Times Entry 1 In PACU I 03/13/18 10:06:00 Ready for PACU I 03/13/18 10:48:00 Discharge Discharge from PACU 03/13/18 10:48:00 PACU I Discharge NA I Delay Reason Last Modified By: Luz Maria Marshall RN 03/13/18 10:49:31 CO NA OR Main PACU I Case Attendees Entry 1 Case Attendee Luz Maria Marshall RN Role Performed RN Last Modified By: Luz Maria Marshall RN 03/13/18 09:33:34 Finalized By: Luz Maria Marshall RN Document Signatures Signed By: Luz Maria Marshall RN 03/13/18 10:49 PROGRESS NOTES Observed: 03/13/2018 Status: F Source: [facility] 9:57 AM [facility] SYSTEM REPOSITORY Patient: ZEV BELLO MRN: [facility][id number] Age: 72 years Sex: Female : 1945 Associated Diagnoses: None Author: Judson Montiel MD Assessment Assessment Diagnosis: Osteoarthritis of right shoulder ([id number] M19.011, Working, Medical). Plan Prophylaxis For Prevention of Deep Vein Thrombosis Will Be Per Surgeon. Management of NSAIDS, Anticoagulants, Antibiotics, and Pain Medications will also be per surgeon. Encourage venous return and ambulation exercises Home medication reconciliation completed. This patient will be considered acceptable for discharge from a medical perspective if the following criteria are met 1. Oxygen Saturations > 90% on Room Air 2. Able to void without difficulty 3. Meets Physical Therapy goals for discharge 4. Passing Flatus 5. Cleared for discharge by surgeon s/p Right TSR 03/13/18 IV Dilaudid / Morphine ordered on an as needed basis for unbearable pain unrelieved by oral pain medications. PO Tylenol ordered for mild pain per protocol. Osteoarthritis ( M 19.9 ) - Chronic pre-existing condition present on admission - additional NSAIDS on hold Hypertension ( I 10 ) - chronic pre-existing condition present on admission. Plan to monitor with prescribed antihypertensive medications. BP 126/63 h/o Previous UTI ( N 39.0 ) - previous diagnosis - treated with antibiotics Medical Illnesses: 1. Hypertension, onset 2009. Currently being managed by her primary care physician. 2. History of recurrent UTI within the last year. Supervising Physician Comments Documentation By: Consulting Physician. Chief Complaint Postoperative medical care Postoperative Information Postoperative Follow Up Postoperative Follow Up: Day 0. Health Status Allergies Allergic Reactions (Selected) Severe Nitrofurantoin- Heart rate fast and vomiting. Unknown Carafate- Unknown. Codeine- Unknown. Oxaprozin- Unknown. Sulfa drugs- Unknown. Vioxx- Unknown. Subjective Patient's pain control appears adequately controlled Review of Systems General - Denies fever Eyes - Denies vision changes Ear/Nose/Throat - Denies sore throat Cardiac - Denies chest pain Respiratory - Denies shortness of breath Gastrointestinal - Denies nausea or vomiting Genitourinary - Denies urinary retention Musculoskeletal - Denies calf pain Neurologic - Denies seizure Skin - Denies rash Objective Last Charted Vital Signs Temperature: 36.9 (03/13 06:00) Pulse: 79 (03/13 07:20) Respiration: 17 (03/13 07:20) BP: 126/63 (03/13 07:20) Pulse Ox: 98 (03/13 07:20) Oxygen Delivery: Nasal cannula (03/13 07:15) O2 Device Flow: 2 L/min Pain Score: 0 (03/13 06:00) General - NAD; Conversant Skin - Normal Turgor and Texture; No Rashes or Ulcerations noted Eyes - PERRLA; Anicteric Sclerae ENMT - Hearing Intact; Oropharynx Clear with Moist Mucosa Cardiology - Regular rate and rhythm, No peripheral edema noted Respiratory - Clear to auscultate bilaterally, No Accessory Muscle use noted Abdominal - Soft and Nontender, No HSM noted Musculoskeletal - Full ROM in all 4 extremities; No clubbing or Cyanosis of Digits noted Psychiatric - A and O x 3; Appropriate Affect Results Review Labs - Last 36 hours (Max 2 / lab test) CHEMISTRY Sodium No result Potassium 3.5 (03/13 06:11) Chloride No result CO2 No result Glucose No result Glucose POCT No result BUN No result Creatinine No result Calcium Total No result Magnesium No result HEMATOLOGY WBC No result RBC No result Hb No result Hematocrit No result Platelets No result MCV No result MCH No result RDW No result MCHC No result Neutrophil Ab No result Monocyte Ab No result Eosinophil Ab No result Basophil Ab No result Lymphocyte Ab No result X-rays last 36 hours XR Shoulder 2+ Views RT: 03/13/18 09:38:04 See Radiology Report for More Detail General Results PREOP NURSING Observed: 03/13/2018 Status: F Source: [facility] 9:30 AM [facility] REPOSITORY [facility] NA PreOp Nursing Record Summary Primary Physician: Janet Parson DO Finalized Date/Time: 03/13/18 07:37:51 Pt. Name: ZEV BELLO /Sex: 1945 Female Med Rec #: [id number] Physician: Princess [employer] #: [id number] Pt. Type: I Room/Bed: / Admit/Disch: 03/13/18 05:26:00 - Institution: CO NA OR PreOp Case Times Entry 1 PreOp Case Times In Room Time 03/13/18 05:45:00 Out Room Time 03/13/18 07:35:00 Last Modified By: Piedad London RN 03/13/18 07:37:49 CO NA OR PreOp Case Attendees Entry 1 Case Attendee Carlota PHIPPS , Brina Schmitt RN Last Modified By: Araceli Ledesma 03/13/18 05:54:41 Finalized By: Piedad London RN Document Signatures Signed By: Piedad London RN 03/13/18 07:37 ANESTHESIA RECORD Observed: 03/13/2018 Status: F Source: [facility] 7:37 AM [facility] REPOSITORY Patient: ZEV BELLO Age: 72 years Sex: Female : 1945 Associated Diagnoses: None Author: Brian Wu DO Procedure Time Out [place] Protocol: patient identity verified, site verified, side verified, procedure to be done verified, patient position verified. REGIONAL ANESTHESIA PROCEDURE Procedure date and begin time: See nurses notes. Procedure date and end time: See nurses notes. Performed by: Brian Wu DO. Assisted by: no surgeon assistant. Informed consent: signed by patient. Technique: peripheral nerve block . Medications-Sedation: sedate with meaningful contact maintained.. Local Anesthesia: 1% lidocaine. Indication for Peripheral Nerve Block: post operative management of pain, at surgeon request. PERIPHERAL NERVE BLOCKADE Interscalene block: right. sterile prep with chloraprep and drape. 22g 50mm peripheral nerve block needle placed perineural with ultrasound guidance. needle location confirmed. incremental injection . negative aspiration every 3 cc. no paresthesia or pain with injection. perineural spread continuously visualized with ultrasound. pt responsive and interactive throughout. Injectate: ropivacaine (concentration 0.5 %, volume 20 mL). Narrative: paresthesia: none, blood aspirated none, pain on injection noted none, resistance on injection normal. Monitored during procedure: EKG, heart rate, heart rhythm, blood pressure (NIBP), pulse oximetry. Procedure tolerated: well. Complications: none. Procedure done in: holding area. Findings-Comments: none. Estimated Blood Loss: none. Specimen(s) obtained: none. Impression and Plan Diagnosis and Plan: Diagnosis Preoperative Diagnosis: Postoperative Diagnosis: . ANESTHESIA PREOPERATIVE Observed: 03/13/2018 Status: F Source: [facility] ASSESS[facility] 7:15 AM [facility] REPOSITORY Patient: ZEV BELLO MRN: [id number] Age: 72 years Sex: Female : 1945 Associated Diagnoses: None Author: Brian Wu DO Preoperative Information Planned Procedure Right Total Shoulder Arthroplasty, RTC bicep repair, contracture release, tenotomy, tendon transfer Histories Past Medical History: Active Fibromyalgia HTN (hypertension) Heart imaging - Stress test a year ago for SOB at [facility]. High cholesterol , Cardiovascular: Greater than or equal to 4 metabolic equivalents (METS) without symptoms, Respiratory: screened for DINA, Renal, Endocrine, Neurological, Musculoskeletal, Gastrointestinal, Hematology, Above, H and P Reviewed. Review of Systems negative except as noted. Social History: Smoking Status: Never smoked How Often Do You Drink ..: Never (0) , Alcohol Risk Assessment: Denies Alcohol Use Home/Environment Details: Lives with Spouse. Living situation: Home/Independent. Current Sensory Status glasses. Nutrition/Health Details: Home Diet: No restrictions. Substance Abuse Risk Assessment: Denies Substance Abuse Anesthesia History: No previous anesthetic complications, no family history anesthesia complications, postoperative nausea/vomiting Medications Allergies Nitrofurantoin: Severe, Vomiting Oxaprozin: Unknown, Unknown Carafate: Unknown, Unknown Vioxx: Unknown, Unknown codeine: Unknown, Unknown sulfa drugs: Unknown, Unknown Medications Admission Med Reconciliation: Complete 03/10/18 07:27:15 by Marcy Mazariegos RN Home Medications: hydroCHLOROthiazide 25 mg = 1 Tab, PO, Daily,, am,, Each Last Dose: 03/12/18 00:00 Still taking, as prescribed losartan 50 mg = 1 Tab, PO, Daily,, am,, Each Last Dose: 03/12/18 00:00 Still taking, as prescribed ubiquinone (Coenzyme Q-10) 100 mg = 1 Cap, PO, Bedtime,, Last Dose: 03/10/18 00:00 Still taking, as prescribed cholecalciferol 5,000 Unit = 1 Cap, PO, Daily,, Last Dose: 03/10/18 00:00 Still taking, as prescribed metoprolol 25 mg = 1 Tab, PO, Daily,, Last Dose: 03/13/18 03:45 Still taking, as prescribed Comment: Beta-B' ocular lubricant 1 Drop, Eyes-Both, PRN,, Each Last Dose: 03/12/18 00:00 Still taking, as prescribed naproxen 220 mg = 1 Tab, PO, PRN,, Each Last Dose: 03/06/18 00:00 Still taking, as prescribed Inpatient Medications: oxygen Routine, Nasal Cannula FIO2/LPM: 0, Supplemental oxygen titration to maintain saturation greater than 90% Last Dose: Not Given oxygen Routine, Nasal Cannula FIO2/LPM: 0, to maintain SpO2 greater than 92% Last Dose: Not Given hydroCHLOROthiazide (unverified) 25 mg, PO, Tab, Daily, x 30 Day(s), 03/15/18 9:00:00 EDT Last Dose: Not Given losartan (unverified) 50 mg, PO, Tab, Daily, x 30 Day(s), 03/14/18 9:00:00 EDT Last Dose: Not Given metoprolol (unverified) 25 mg, PO, Tab ER, Daily, x 30 Day(s), 03/14/18 9:00:00 EDT Last Dose: Not Given Patch Removal (unverified) 1 Patch, TransDermal, Patch, ac bkfst x 30 Day(s), 03/13/18 7:13:00 EDT , Comment: POD #1 0600 Last Dose: Not Given scopolamine (unverified) 1.5 mg, TransDermal, Patch, preop, x 30 Day(s), 03/13/18 7:13:00 EDT , Comment: Hold for patients greater than 70 years old.Hold for patients with increased intraocular pressure.Hold for Last Dose: Not Given Patch Removal (unverified) 1 Patch, TransDermal, Patch, Once, 03/13/18 7:13:00 EDT Last Dose: Not Given ocular lubricant (unverified) 1 Drop, Eyes-Both, Eye Mani, QID x 30 Day(s), PRN Dry Eyes, 03/13/18 9:00:00 EDT Last Dose: Not Given CloNIDine (unverified) 0.1 mg, PO, Tab, Q6h, PRN, See Comments x 30 Day(s), 03/13/18 9:00:00 EDT Last Dose: Not Given Acetaminophen-OxyCODONE (unverified) 2 Tab, PO, Tab, Q4h x 2 Time(s)/Dose(s), PRN See Comments, 03/13/18 7:14:00 EDT , Comment: in PACU ONLY Maximum 4 Gm Acetaminophen/Day for Adults May Give 1 tab for moderate pain, Last Dose: Not Given Current IV Orders: CeFAZolin (RTU) 2 Gm, IVPB, Pre-Procedure x 30 Day(s) Last Dose: Not Given dexamethasone (unverified) 5 mg, IV Push, Once,, 03/13/18 7:14:00 EDT Last Dose: Not Given metoclopramide (unverified) 5 mg, IV, Inject, Once,, 03/13/18 7:13:00 EDT Last Dose: Not Given FentaNYL (unverified) 50 mcg, IV Push, Inject, Q5min, PRN, See Comments x 4 Time(s)/Dose(s), 03/13/18 7:14:00 EDT Last Dose: Not Given Comment: in PACU ONLY - Maximum cumulative dose 200 mcgFor Pain scores 3-10 HYDROmorphone (unverified) 0.5 mg, IV Push, Inject, Q5min, PRN, See Comments x 8 Time(s)/Dose(s), 03/13/18 7:14:00 EDT Last Dose: Not Given Comment: in PACU ONLY; Maximum cumulative dose 6 mg Use Fentanyl Order first.For Pain Scores 2-8 labetalol (unverified) 5 mg, IV Push, Inject, PRN, PRN, See Comments x 2 Time(s)/Dose(s), 03/13/18 7:14:00 EDT Last Dose: Not Given Comment: PRN SBP Greater than 180, DBP Greater than 100. Hold for pulse less than 60. For administration in PACU ONLY. May repeat in 5 minutes times one. meperidine (unverified) 12.5 mg, IV Push, Inject, PRN, PRN, See Comments x 2 Time(s)/Dose(s), 03/13/18 7:14:00 EDT Last Dose: Not Given Comment: PRN for shivering in PACU Post-Op Once ondansetron (unverified) 4 mg, IV Push, Inject, Q6h, PRN, See Comments x 30 Day(s), 03/13/18 7:14:00 EDT Last Dose: Not Given Comment: PRN nausea/vomiting. Give first. If ondansetron ineffective, alternate with either Prochlorperazine OR Promethazine and other antiemetics as ordered. metoclopramide (unverified) 5 mg, IV Push, Inject, Q6h, PRN, Nausea/Vomiting x 30 Day(s), 03/13/18 7:14:00 EDT Last Dose: Not Given Comment: PRN, Nausea/Vomiting for nausea with ondansetron and other antiemeitic if GI motility issues related to narcotics are a concern. midazolam (unverified) 5 mg, IV Push, Inject, Once, PRN, See Comments, 03/13/18 7:12:00 EDT Last Dose: Not Given Comment: Please pull 5mg vial.Dose to be determined at bedside. Lactated Ringers 1,000 mL 1,000 mL, 1,000 mL, 20 mL/hr, IV, Infusion, 79.945 kg Last Dose: 03/13/18 06:12:00 Comment: Run at KVO Rate Home Medications cholecalciferol (Vitamin D3 5000 intl units oral capsule) 1 Cap = 5,000 Unit By Mouth once a day hydroCHLOROthiazide (hydroCHLOROthiazide 25 mg oral tablet) 1 Tab = 25 mg By Mouth once a day am losartan (losartan 50 mg oral tablet) 1 Tab = 50 mg By Mouth once a day am metoprolol (Toprol XL 25 mg oral tablet, extended release) 1 Tab = 25 mg By Mouth once a day COMMENTS: Beta-B' naproxen (Aleve sodium 220 mg oral tablet) 1 Tab = 220 mg By Mouth, As Needed Pain/Discomfort ocular lubricant (Refresh) 1 Drop Both Eyes, As Needed Dry Eyes ubiquinone (Coenzyme Q-10) (Co-Q10 100 mg oral capsule) 1 Cap = 100 mg By Mouth Bedtime Physical Examination VS/Measurements: Last Charted Vital Signs Temperature: 36.9 (03/13 06:00) Pulse: 76 (03/13 07:10) Respiration: 14 (03/13 07:10) BP: 128/52 (03/13 07:10) Pulse Ox: 100 (03/13 07:10) Oxygen Delivery: Nasal cannula (03/13 07:10) O2 Device Flow: 2 L/min Pain Score: 0 (03/13 06:00) , Measurements Height: 165.10 cm /65.00 in (Type not Indicated) (03/13/2018 05:57:00) Weight: 80.7 kg/ 177 lbs 14.6 oz (Actual) (03/13/2018 05:57:00) Body Surface Area: 1.92 m2 Body Mass Index: 29.61 . Mouth/Airway: Dental (from Forms) No dental information charted . Mallampati: Class 3. Neck: Full range of movement. Mouth: Mouth opening unrestricted. Jaw: Normal jaw. Respiratory: Breath sounds equal bilaterally, no wheezing, no rhonchi, no rales, normal effort, No respiratory distress. Right lung: Clear to auscultation. Left lung: Clear to auscultation. Cardiovascular: Cardiac sounds: regular rhythm, no murmurs, no gallops. Rhythm: Regular, sinus rhythm. Neurologic: Oriented to person, time, place, and situation. No gross neurological deficits noted, alert, conversant, answers questions appropriately. Results Review General results Laboratory Last 90 Days Chemistry 03/03/18 12:50, Sodium = 142 mMol/L 03/13/18 06:11, Potassium = 3.5 mMol/L 03/03/18 12:50, Chloride = 102 mMol/L 03/03/18 12:50, CO2 = 29 mMol/L 03/03/18 12:50, Glucose = 85 mg/dL 03/03/18 12:50, BUN = 19 mg/dL H 03/03/18 12:50, Creatinine = 1.08 mg/dL H 03/03/18 12:50, Calcium Total = 9.3 mg/dL Hematology 03/03/18 12:50, WBC = 8.3 thou/mcL 03/03/18 12:50, RBC = 5.00 X(10)6/mcL 03/03/18 12:50, Hb = 14.2 gm/dL 03/03/18 12:50, Hematocrit = 40.5 % 03/03/18 12:50, Platelets = 186 thou/mcL 03/03/18 12:50, MCV = 81.0 FL 03/03/18 12:50, MCH = 28.4 Picograms 03/03/18 12:50, RDW = 13.2 % 03/03/18 12:50, MCHC = 35.1 gm/dL 03/03/18 12:50, Neutrophil Ab = 5.5 thou/mcL 03/03/18 12:50, Monocyte Ab = 0.6 thou/mcL 03/03/18 12:50, Eosinophil Ab = 0.2 thou/mcL 03/03/18 12:50, Basophil Ab = 0.1 thou/mcL 03/03/18 12:50, Lymphocyte Ab = 1.8 thou/mcL Coagulation 03/03/18 12:50, Partial Thromboplastin (aPTT) = 26 Sec 03/03/18 12:50, INR = 1.1 03/03/18 12:50, Prothrombintime (PT) = 11.5 Sec Other Labs 03/03/18 12:50, Diff Method = AUTOMATED DIFFERENTIAL 03/03/18 12:50, Neutrophil Percent = 67.0 % 03/03/18 12:50, Lymphocyte Percent = 22.0 % 03/03/18 12:50, Monocyte Percent = 7.6 % 03/03/18 12:50, Eosinophil Percent = 2.7 % 03/03/18 12:50, Basophil Percent = 0.7 % 03/03/18 12:50, MPV = 9.0 FL 03/03/18 12:50, BUN / Creatinine Ratio = 18 Point Of Care Tests No point of care testing charted Diagnostic Tests Electrocardiogram EKG in Chart reviewed Echocardiogram Echo in Chart review Stress test Stress report reviewed Assessment ASA Classification 2. Oral intake status Nothing after midnight (except for sips with meds). Plan Anesthesia Discussion The patient was examined:: Yes. The patient was interviewed:: Yes. Informed Consent:: Obtained. The anesthetic plan, options, risks, and benefits were discussed:: with the patient, written, signed consent form obtained. Anesthesia Preoperative Plan The participation of Certified Registered Nurse Anesthetists was discussed: Yes. The following risks/potential anesthesia problems were discussed: as noted in written consent form. Proposed Anesthesia Type: General with Endotracheal Intubation, Interscalene Block. Monitoring/Anesthesia Considerations: Standard ASA monitoring. Post-operative Analgesia Plan Patient requests/comments: Blood Product Preference: Yes blood products. Comments POTASSIUM LEVEL Collected: 03/13/2018 Status: F Source: [facility] 6:11 AM [facility] REPOSITORY TYPE CODE TESTS RESULT OUT OF RANGE REFERENCE UNITS LAB 2823-3(MARLENA 3.5-5.1 mMol/L NC) Normal Potassium Level 3.5 OPERATIVE/PROCEDURE REPORT Observed: 03/13/2018 Status: F Source: [facility] 12:00 AM [facility] REPOSITORY DICTATED BY:JANET PARSON DO SERVICE DATE:03/13/2018 SURGEON: Janet Parson MD ACCOUNTING ADMINISTRATOR: MAIKEL Fitzgerald PREOPERATIVE DIAGNOSES: Right shoulder glenohumeral arthritis with soft tissue tendon contractures. POSTOPERATIVE DIAGNOSES: Right shoulder glenohumeral arthritis with soft tissue tendon contractures with repairable rotator cuff tear and biceps tear. PROCEDURES: Right shoulder primary anatomic total shoulder arthroplasty with rotator cuff repair, soft tissue tendon tenotomies, biceps tenodesis returns. IMPLANTS USED: Size 44 Affiniti Tornier glenoid with a hybrid size B Catalyst humeral resurfacing. ANESTHESIA: General with interscalene block. ESTIMATED BLOOD LOSS: 50 mL. COMPLICATIONS: None. CONDITION: Stable to PACU. INDICATIONS: The patient is a 72-year-old female with progressive right shoulder arthritis refractory to conservative care. Due to progressive symptoms, positive imaging, reproducible exam and failure of conservati ve care, she elected to proceed with surgical treatment. Risks, benefits and alternatives to the above procedure were discussed. She understood these fully before proceeding. OPERATIVE COURSE: Patient was brought to the operating room suite, placed supine on the operating room table. General anesthesia was induced. The patient was placed in the beach chair position. All bony prominences we re well-padded. The right shoulder was prepped and draped in the standard sterile fashion. Preoperative antibiotics were administered. Examination under anesthesia demonstrated passive contracture, f orward elevation to 120, abduction to 80, external rotation to 20. Deltopectoral approach was utilized. Dissection was carried to the joint. Repairable rotator cuff and biceps tears were noted. Arm was externally rotated. Advanced glenohumeral arthritis was seen. Subscapularis was released from the lesser tuberosity. Humeral exposure was performed. A center guide pin was inserted followed by yessica tran. Cutting guides were applied for Catalyst system and created in a sequential cutting fashion. A cutting plate was then applied. At this point, severe soft tissue tendon contracture existed necessitating multiple soft tissue tendon tenotomies through same incision. Circumferential release of the capsule was performed with a 15 b lade knife followed by sequential tenotomies of the subscapularis and pectoralis major tendon. This was followed by subdeltoid scar release, this adequately mobilized joint free of contracture. We the n proceeded with completion of the total shoulder arthroplasty. Glenoid exposure was performed. Labrum was removed. The center drill hole was inserted followed by a 44 mm reamer. Superior and inferi or drill holes were created, followed by impaction punching. Glenoid was prepared with thrombin, Gelfoam and peroxide and thoroughly dried. Cement was pressurized into the peripheral holes followed by impaction of the size 44 Tornier Affiniti glenoid. Loose cement was removed and allowed to cure. Attention was then drawn back to the humerus. Punching was performed, followed by cementing of the Ca talyst resurfacing arthroplasty of the humeral head. The shoulder was reduced and excellent stability was achieved. The wound was copiously irrigated. Subscapularis repaired anatomically through drill holes with #5 Ethibond suture. We then proceeded with rotator cuff repair. Supraspinatus tendon tear was mobilized, tagged with #5 Ethibond suture in a modified Jeramie- Jonas suture pattern. Drill holes were placed in the greater tub erosity. Sutures were placed through the drill holes and sequentially tied. Anatomic repair of the rotator cuff tendon tear was achieved. Biceps tendon was then tenodesed into the biceps groove utili zing drill holes #5 Ethibond suture. Anatomic repair of the biceps tendon tear was achieved. The wound was irrigated. 1 g of powdered vancomycin was applied. Deltopectoral interval was closed with # 2 Vicryl, 2-0 subcutaneous closure and a running Monocryl for skin. Sterile dressing with an ARC sling was applied. The patient was awakened and transferred to PACU in stable condition. No complications occurred. DISPOSITION: Patient will be admitted for routine postoperative care including IV antibiotics, medical management, and therapy instruction. The patient will be discharged when medically stable. ZEV BELLO Birthdate: 1945 #: [id number] D/03/19/2018 11:32:06 T/03/19/2018 16:11:24 VOICE JOB ID:[id number] Darcie Garcia thanks you for the opportunity to care for your patient. DID: [id number] ERYTHROCYTE SED RATE Collected: 03/09/2018 Status: F Source: [facility] 11:22 AM [facility] REPOSITORY Order Comment: Order Date: 03/09/18 Order Info: [id number] - CBCD TYPE CODE TESTS RESULT OUT OF RANGE REFERENCE UNITS LAB L102.0000 0-30 mm/hr Normal SED RATE 3 Performed By: #### L101.9900 #### [facility] [place], [address] CBC W/DIFF, AUTOMATED Collected: 03/09/2018 Status: F Source: [place] 11:22 AM [facility] REPOSITORY Order Comment: Order Date: 03/09/18 Order Info: [id number] - CBCD TYPE CODE TESTS RESULT OUT OF RANGE REFERENCE UNITS LAB L100.1000 4.4-11.0 K/mm3 Normal WBC 7.5 LAB L100.1200 4.2-5.4 M/mm3 Normal RBC 4.94 LAB L100.1300 12.0-15.0 g/dl Normal HGB 14.0 LAB L100.1400 37-47 % Normal HCT 41.6 LAB L100.1500 81-99 fL Normal MCV 84.2 LAB L100.1600 27.0-32.0 pg Normal MCH 28.3 LAB L100.1700 32-36 g/gl Normal MCHC 33.7 LAB L100.1810 11.6-14.6 % Normal RDW CV 13.2 LAB L100.1820 35.1-43.9 fl Normal RDW SD 40.3 LAB L100.1900 150-450 K/mm3 Normal PLT 184 LAB L100.2000 6.2-12.0 fl Normal MPV 11.2 LAB L100.2100 47-70 % Normal NEUT% 70.0 LAB L100.2200 19-41 % Normal LY% 20.2 LAB L100.2300 0-10 % Normal MONO% 6.5 LAB L100.2400 0-5 % Normal EO% 2.7 LAB L100.2500 0-1 % Normal BASO% 0.5 LAB L100.2550 0.0-0.9 % Normal IM GRAN % 0.100 Result Comment: IG% - Immature Granulocytes (promyelocytes, myelocytes and metamyelocytes) > 1% indicates that a LEFT SHIFT is Present. LAB L100.2620 2.0-7.7 X10 3/uL Normal Absolute Neut 5.3 LAB L100.2720 0.83-4.51 X10 3/ul Normal Absolute Lymph 1.52 Performed By: #### L100.0100, L500.4050, L500.4100, L501.9520, L506.1000 #### [facility] [address] [place], [address] COMPREHENSIVE METABOLIC Collected: 03/09/2018 Status: F Source: [facility] 11:22 AM [facility] REPOSITORY Order Comment: Order Date: 03/09/18 Order Info: [id number] - CMP Order Info: [id number] - LIPID Order Info: [id number] - TSH TYPE CODE TESTS RESULT OUT OF RANGE REFERENCE UNITS LAB L501.0100 74-106 mg/dL Normal GLU 90 Result Comment: Please note revised GLUCOSE reference range effective 2017. LAB L501.1000 7-18 mg/dL Normal BUN 18 LAB L501.1100 0.55-1.02 mg/dL High CREAT,SERUM 1.12 Result Comment: The validity of the calculated GFR AND GFRAA in patients over 70 years has not been determined. Clinical correlation is essential. LAB L501.1110 >60 mL/min Low EST GFR 51 Result Comment: Non- GFR Calc LAB L501.1115 >60 mL/min Normal EST GFR - AA 61 Result Comment: GFR Calc LAB L501.1300 10-20 RATIO Normal BUN/CRE 16.1 LAB L501.1500 6.4-8.2 g/dL T Normal PROT 7.8 LAB L501.1800 3.2-5.0 g/dL Normal ALB 4.1 LAB L501.1950 2.2-4.2 g/dL Normal GLOB 3.7 LAB L501.2000 0.9-2.4 RATIO Normal A/G 1.1 LAB L501.2200 8.5-10.1 mg/dL CA Normal 9.0 LAB L501.4100 15-37 U/L Low AST 13 LAB L501.4305 45-117 U/L Normal ALK P 95 LAB L501.4405 13-56 U/L Normal ALT 24 LAB L501.4600 0.20-1.00 mg/dL T Normal BILI 0.90 LAB L501.5300 136-145 mmol/L NA Normal 140 LAB L501.5600 3.5-5.1 mmol/L K Normal 3.6 LAB L501.5900 98-107 mmol/L CL Normal 102 LAB L501.6100 21.0-32.0 mmol/L Normal CO2 29.0 LAB L501.6200 5-15 Normal GAP 9 Performed By: #### L100.0100, L500.4050, L500.4100, L501.9520, L506.1000 #### [facility] [address] [place], [address] LIPID PROFILE Collected: 03/09/2018 Status: F Source: [place] 11:22 AM [facility] REPOSITORY Order Comment: Order Date: 03/09/18 Order Info: [id number] - CMP Order Info: [id number] - LIPID Order Info: [id number] - TSH TYPE CODE TESTS RESULT OUT OF RANGE REFERENCE UNITS LAB L501.4900 200 mg/dL High CHOL 236 Result Comment: <200 mg/dL Desirable 200-240 mg/dL Borderline >240 mg/dL High Risk LAB L501.5000 mg/dL High TRIG 246 Result Comment: The drugs N-Acetylcysteine and Metamizole may falsely depress this assay. Serum Triglycerides Reference Interval Normal <150 mg/dL Borderline high 150 - 199 mg/dL High 200 - 499 mg/dL Very High > or = 500 mg/dL LAB L501.6400 mg/dL Low HDL 36 Result Comment: The drugs N-Acetylcysteine and Metamizole may falsely depress this assay. Reference Range HDL <40 mg/dL Low HDL Cholesterol HDL >or= 60 mg/dL High HDL Cholesterol LAB L501.6500 0-130 mg/dL High LDL 151 LAB L501.6600 5-40 mg/dL High VLDL 49 Performed By: #### L100.0100, L500.4050, L500.4100, L501.9520, L506.1000 #### [facility] [address] [place], [address] THYROID STIM HORMONE Collected: 03/09/2018 Status: F Source: [place] (TSH) 11:22 AM [facility] REPOSITORY Order Comment: Order Date: 03/09/18 Order Info: 0786-1 - CMP Order Info: [id number] - LIPID Order Info: 3016-3 - TSH TYPE CODE TESTS RESULT OUT OF RANGE REFERENCE UNITS LAB L501.9520 0.358-3.74 uIU/mL Normal TSH 1.67 Performed By: #### L100.0100, L500.4050, L500.4100, L501.9520, L506.1000 #### [facility] [address] [place], [place], [address] VITAMIN D,25 HYDROXY Collected: 03/09/2018 Status: F Source: [place] 11:22 AM [facility] REPOSITORY Order Comment: Order Date: 03/09/18 Order Info: 25399-9 - VITD25 TYPE CODE TESTS RESULT OUT OF RANGE REFERENCE UNITS LAB L506.1000 29.95-100.01 ng/mL Normal Vitamin D 31.7 25-OH Result Comment: Vitamin D 25(OH) Status Range Deficiency <20 ng/mL (50nmol/L) Insuffciency 20 - 30 ng/mL (50 - 75 nmol/L) Sufficiency 30 - 100 ng/mL (75 - 250 nmol/L) Toxicity >100 ng/mL (>250 nmol/L) Performed By: #### L100.0100, L500.4050, L500.4100, L501.9520, L506.1000 #### [facility] [address] [place], [address] URINALYSIS, COMPLETE Collected: 03/09/2018 Status: F Source: JARRATT 11:22 AM [facility] REPOSITORY Order Comment: How was Urine Obtained? CLEAN CATCH TYPE CODE TESTS RESULT OUT OF RANGE REFERENCE UNITS LAB L400.3000 Yellow COLOR Normal Yellow LAB L400.3050 Clear Normal CLARITY Clear LAB L400.3200 Normal mg/dl Normal GLUCOSE, UR Normal LAB L400.3300 Negative mg/dL Normal BILIRUBIN URINE Negative LAB L400.3400 Negative mg/dl Normal KETONE UR Negative LAB L400.3465 1.002-1.030 Normal SP.GR. DIPSTX 1.015 LAB L400.3550 5.0 - 8.0 pH UR Normal 6.5 LAB L400.3600 Negative mg/dl PROT Normal DIPSTX Negative LAB L400.3700 Normal mg/dl Normal UROBILI Normal LAB L400.3750 Negative Normal NITRITE UR Negative LAB L400.3780 Negative /ul High 10 OCCULT BLOOD-UR LAB L400.3800 Negative /ul High LEUK ESTERASE 100 LAB L400.4050 0-5 /hpf WBC Normal 0-5 SEEN LAB L400.4100 0-5 /hpf 0 Normal RBC-UA SEEN LAB L400.4150 5-10 /hpf SQUAM Normal EPI 0-5 SEEN LAB L400.4300 None Seen /hpf Normal BACTERIA RARE LAB L400.4350 <or=2+ /hpf Normal MUCUS, URINE RARE Performed By: #### L400.0001 #### [facility] [address] [place], [address] CRP Collected: 03/09/2018 Status: F Source: J[place] 11:22 [facility] REPOSITORY Order Comment: Order Date: 03/09/18 Order Info: 0786-1 - CMP Order Info: [id number] - LIPID Order Info: 3016-3 - TSH TYPE CODE TESTS RESULT OUT OF RANGE REFERENCE UNITS LAB L501.6710 0.0-3.0 mg/L High 6.26 C-REACTIVE PROT Result Comment: C-Reactive Protein (CRP) provides useful information for the diagnosis, therapy and monitoring of inflammatory processes and associated diseases. For the evaluation of Relative Risk for Cardiovascular Disease, a High Sensitivity CRP (HSCRP) should be ordered. Performed By: #### L501.6710 #### [facility] [address] [place], [place], [address] CELIAC DISEASE Collected: 03/09/2018 Status: F Source: [place] DANIEL 11:22 AM [facility] REPOSITORY TYPE CODE TESTS RESULT OUT OF RANGE REFERENCE UNITS LAB L3200.1400 64-422 mg/dL Normal IMMUNO A 141 Result Comment: Performed at: [facility] [id number] Manager Wind: Ousmane Savage PhD, Phone: [phone] LAB L3411.5545 0-3 U/mL Normal tTG IGA <2 Result Comment: Negative 0 - 3 Weak Positive 4 - 10 Positive >10 Tissue Transglutaminase (tTG) has been identified as the endomysial antigen. Studies have demonstr- ated that endomysial IgA antibodies have over 99% specificity for gluten sensitive enteropathy. LAB L3410.2975 Negative Normal ENDOMYSIAL IGA Negative Performed By: #### L3410.2400 #### [facility] (refer to report for specific site) refer to report for address and phone number CBC WITH DIFFERENTIAL Collected: 03/03/2018 Status: F Source: [facility] 12:50 PM [facility] TYPE CODE TESTS RESULT OUT OF REFERENCE UNITS RANGE LAB 37080-1(L 14-46 % OINC) 22.0 Normal Lymphocyte Percent LAB 39889-9(L 80-98 FL OINC) MCV 81.0 Normal LAB 87722-2(L 7.5-11.2 FL OINC) MPV 9.0 Normal LAB 27927-1(L 0-7 % OINC) 2.7 Normal Eosinophil Percent LAB 711-2(MARLENA 0.0-0.4 thou/mcL NC) 0.2 Normal Eosinophil Absolute LAB 751-8(MARLENA 1.5-7.8 thou/mcL NC) 5.5 Normal Neutrophil Absolute LAB 81253-9(L 32.0-36.0 gm/dL OINC) MCHC 35.1 Normal LAB 57964-8(L 40-74 % OINC) 67.0 Normal Neutrophil Percent LAB 29504-9(L 140-415 thou/mcL OINC) 186 Normal Platelet Count LAB 718-7(MARLENA 11.5-17.0 gm/dL NC) 14.2 Normal Hemoglobin LAB 19004-0(L 4-13 % OINC) 7.6 Normal Monocyte Percent LAB 742-7(MARLENA 0.1-1.0 thou/mcL NC) 0.6 Normal Monocyte Absolute LAB 46194-8(L 4.0-10.5 thou/mcL OINC) WBC 8.3 Normal Count LAB 58468-1(L 34.0-50.0 % OINC) 40.5 Normal Hematocrit LAB 09341-7(L 27.0-34.0 Picograms OINC) MCH 28.4 Normal LAB 11977-5(L OINC) Diff Normal Method AUTOMATED DIFFERENTIAL LAB 704-7(MARLENA 0.0-0.2 thou/mcL NC) 0.1 Normal Basophil Absolute LAB 28280-8(L 0-3 % OINC) 0.7 Normal Basophil Percent LAB 07615-0(L 3.80-5.60 x(10)6/mcL OINC) Red 5.00 Normal Blood Cell Count LAB 12256-5(L 11.7-15.0 % OINC) RDW 13.2 Normal LAB 731-0(MARLENA 0.7-4.5 thou/mcL NC) 1.8 Normal Lymphocyte Absolute URINALYSIS WITH Collected: 03/03/2018 Status: F Source: [facility] MICROSCOPIC AUTOMATIC 12:50 PM [facility] REPOSITORY TYPE CODE TESTS RESULT OUT OF RANGE REFERENCE UNITS LAB 5804-0(LO NEG INC) Normal Protein Urine NEGATIVE LAB 5792-7(LO NEG INC) Normal Glucose Urine NEGATIVE LAB 15383-0(L 0.0-1.9 mg/dL OINC) Normal Urobilinogen 0.2 Urine LAB 5821-4x1( OTO5 /hpf LOINC) WBC Urine Abnormal 5-10 LAB 5811-5(LO 1.005-1.030 INC) Normal Specific [place] Urine 1.025 LAB 5797-6(LO NEG INC) Normal Ketones Urine NEGATIVE LAB 5794-3(LO NEG INC) Blood Urine Abnormal 1+ LAB 5787-7(LO OTO5 /hpf INC) Epithelial Abnormal Cells Urine 5-10 Result Comment: SQUAMOUS 0-5 TRANSITIONAL (UROTHELIAL) LAB 5821-4(LOINC) NEG Abnormal 1+ Leukocyte Urine LAB 15166-8(LOINC) CLER Abnormal Clarity Urine SLIGHTLY CLOUDY Result Comment: URINE CULTURE TO FOLLOW LAB 8247-9(LOINC) NONE Abnormal Mucous Urine MODERATE LAB 5803-2(LOINC) 5.0-7.5 Normal pH Urine 5.5 LAB 18149-3(LOINC) NEG Normal Bilirubin Urine NEGATIVE LAB 26965-5(LOINC) NEG Normal Nitrite Urine NEGATIVE LAB 5769-5(LOINC) NONE Abnormal Bacteria Urine MODERATE LAB 74523-1(LOINC) OTO5 /hpf Normal RBC Urine 0-5 LAB 5778-6(LOINC) YEL Normal Color Urine YELLOW BASIC METABOLIC PANEL Collected: 03/03/2018 Status: F Source: [place] 12:50 PM [facility] REPOSITORY TYPE CODE TESTS RESULT OUT OF RANGE REFERENCE UNITS LAB 2075-0(MARLENA 98-107 mMol/L NC) Chloride Normal Level 102 LAB 12486-7(LO 7-18 mg/dL INC) High BUN 19 LAB 34886-7(LO 8.5-10.6 mg/dL INC) Calcium Normal Total 9.3 LAB 3097-3(MARLENA NC) BUN / Normal Creatinine Ratio 18 LAB 29128-3(LO 74-106 mg/dL INC) Glucose Normal Level 85 LAB 2028-9(MARLENA 21-32 mMol/L NC) Carbon Normal Dioxide Level 29 LAB 2823-3(MARLENA 3.5-5.1 mMol/L NC) Normal Potassium Level 3.7 LAB 2160-0(MARLENA 0.55-1.02 mg/dL NC) High Creatinine 1.08 LAB 2951-2(MARLENA 136-145 mMol/L NC) Sodium Normal Level 142 PROTHROMBIN TIME Collected: 03/03/2018 Status: F Source: [facility] 12:50 PM [facility] REPOSITORY TYPE CODE TESTS RESULT OUT OF RANGE REFERENCE UNITS LAB 5902-2(MARLENA 9.4-12.5 Sec NC) Prothrombin Normal Time (PT) 11.5 LAB 43839-2(LO 0.8-1.2 INC) INR Normal 1.1 Result Comment: DURING THE INDUCTION PHASE OF ORAL ANTICOAGULATION, THE INR MAY NOT REFLECT THE ANTICOAGULANT STATUS OF THE PATIENT. THERAPEUTIC RANGES FOR INR'S ARE: MOST CLINICAL SITUATIONS: INR 2.0-3.0 MECHANICAL PROSTHETIC VALVES: INR 2.5-3.5 CRITICAL: INR 5.0 PARTIAL THROMBOPLASTIN Collected: 03/03/2018 Status: F Source: DARCIE GARCIA TIME (APTT) 12:50 PM [facility] REPOSITORY TYPE CODE TESTS RESULT OUT OF REFERENCE UNITS RANGE LAB 92971-0(LO 24.4-37.5 Sec INC) Partial Normal Thromboplastin 26 (aPTT) Observed: 03/03/2018 Status: C Source: DARCIE PETERSMEL CULTURE URINE + 12:50 PM [facility] SUSCEPTIBILITY REPOSITORY [facility] Microbiology PROCEDURE: Culture Urine + Susceptibility SOURCE: Urine BODY SITE: COLLECTED DATE/TIME: 03/03/2018 12:50 EDT RECEIVED DATE/TIME: 03/03/2018 12:50 EDT START DATE/TIME: 03/03/2018 12:50 EDT FREE TEXT SOURCE: URINE-URINE INTERFACED REPORTS Final Report [] Verified Date/Time/Personnel: 03/04/2018 23:41 EDT CONTRIBUTOR_SYSTEM, CO_PN 80,000 CFU/ML STAPHYLOCOCCUS SPECIES (COAGULASE NEGATIVE) Preliminary Report [] Verified Date/Time/Personnel: 03/04/2018 13:13 EDT CONTRIBUTOR_SYSTEM, CO_PN 80,000 CFU/ML STAPHYLOCOCCUS SPECIES SENSITIVITY AND IDENTIFICATION TO FOLLOW SUSCEPTIBILITY RESULTS Staphylococcus species (coagulase negative) Antibiotic LÁZARO Interp LÁZARO Dilution Nitrofurantoin Susceptible <=16 Oxacillin Susceptible <=0.25 Tetracycline Resistant >=16 Trimethoprim/ Resistant >=320 Sulfamethoxazole Performed By: #### 630-4 #### [address] HISTORY AND PHYSICAL Observed: 03/03/2018 Status: F Source: DARCIE GARCIA 12:00 AM [facility] REPOSITORY CONSULTATION DICTATED BY: TIFFANIE LINK MD DATE OF SERVICE: 03/03/2018 NAME: ZEV BELLO . DATE OF : 1945 SURGERY DATE: 03/13/2018 REFERRING PHYSICIAN: Janet Parson DO ADMISSION DIAGNOSIS: Osteoarthritis of right shoulder. CHIEF COMPLAINT: Preoperative medical risk stratification. HISTORY OF PRESENT ILLNESS: A 72-year-old female presents for preoperative medical risk stratification consult at the request of Dr. Parson prior to right total shoulder replacement. The patient reports progressive osteoarthrit is of the right shoulder over several years' duration. Within the last 3 months, her symptoms have become severe with activity and have failed nonsurgical options. Please see below regarding the status of this patient's active medical conditions and the assessment and plan for the preoperative medical risk stratification. PAST MEDICAL HISTORY: Surgeries: 1. Cholecystectomy 1982. 2. Hernia repair, date unspecified. 3. Hysterectomy 1972. 4. Right shoulder surgery x2, most recently in 2017. 5. Left shoulder surgery x1, date unspecified. Medical Illnesses: 1. Hypertension, onset 2009. Currently being managed by her primary care physician. 2. History of recurrent UTI within the last year. Drug Allergies: 1. SULFA. 2. CODEINE. 3. VIOXX. 4. CARAFATE. 5. OXAPROZIN. 6. NITROFURANTOIN had caused various reactions consisting of nausea, pain, and elevated heart rate. Metal Allergies: None. Medications: 1. Metoprolol 25 mg q.a.m. 2. Hydrochlorothiazide 25 mg q.a.m. 3. Losartan 50 mg q.a.m. 4. CoQ10 100 mg q.p.m. 5. Vitamin D 5000 units daily. Transfusions: None. Reactions: None. Muslim Beliefs Against Receiving Blood: None. Anesthetic Reactions: Severe nausea and vomiting. Bleeding Tendencies: None. Family Medical History: Father, premature heart disease and diabetes. Social History: Smoking: None. Alcohol: None. Substance abuse: None. REVIEW OF SYSTEMS: Positive functional capacity of at least 4 metabolic equivalents with no active cardiopulmonary symptoms. Positive use of glasses. Positive for remote history of peptic ulcer disease. Negative for: Constitutional, EENT, Cardiovascular, Respiratory, Gastrointestinal, Integumentary, Neurological, Psychiatric, Endocrine, Hematological, and/or Immunological Symptoms, except as listed above. PHYSICAL EXAM: Vital Signs: Blood pressure 130/70, temperature 97.7, pulse 53, height 65, weight 178, BMI is 29. General: This is a pleasant age-appropriate female in no apparent distress. Skin: Normal turgor; No rashes. Eyes: Pupils equal bilaterally; Anicteric sclerae. ENMT: Hearing intact; Oropharynx clear with moist mucosa. Neck: Trachea midline; No goiter. Respiratory: Clear to auscultation bilaterally; No accessory muscle use noted. Cardiovascular: Regular rate and rhythm; No peripheral edema noted. Gastrointestinal: Soft and non-tender; No hepatosplenomegaly. Musculoskeletal: No calf tenderness bilaterally; No clubbing or cyanosis of digits noted. Psychiatric: Alert and oriented x 3; Appropriate affect. LABORATORIES: Pulse ox 98% on room air. EKG: Read independently today reveals normal sinus rhythm with low voltage and late transition. Blood work has been ordered. IMPRESSION AND PLAN: 1. Preoperative medical risk stratification indicates that this patient is at medically acceptable risk for elective major orthopedic surgery pending laboratory. 2. Osteoarthritis, right shoulder. The patient has been advised on discontinuation of aspirin, NSAIDS and herbal supplements for at least 1 week preoperatively. 3. This patient has no active cardiac conditions, revised cardiac risk index score of zero, functional capacity is at least 4 metabolic equivalents. She is at acceptable cardiac risk based on current ACC/AHA guidelines. 4. Hypertension. Well controlled and optimized for surgery. The patient has been given advice on management of her antihypertensive regimen perioperatively. 5. Anesthesia-associated nausea and vomiting. Perioperative antiemetic prophylaxis is recommended. 6. Recurrent urinary tract infection. Preoperative UA with reflex culture has been ordered. 7. Body mass index of 29. Above recommended guideline. She will follow up with her primary care physician for weight loss management. She is at low probability for obstructive sleep apnea based on h er obstructive sleep apnea screening questionnaire. Signed: Tiffanie Link M.D. ZEV BELLO Birthdate: 1945 #: [id number] D/03/03/2018 12:49:13 T/03/03/2018 13:52:52 VOICE JOB ID:[id number] Darcie Garcia thanks you for the opportunity to care for your patient. DID: [id number] CBC Collected: 12/12/2017 Status: F Source: GREGORY CHAUDHARY 2:35 PM [facility] REPOSITORY TYPE CODE TESTS RESULT OUT OF RANGE REFERENCE UNITS LAB CBC(LOINC) CBC Result Comment: CBC-COMPLETE BLOOD COUNT LAB WBC(LOINC) 4.5 - 10.8 x 10EE3/UL WBC 10.0 LAB RBC(LOINC) 4.10 - x 10EE6/UL 5.30 RBC 5.14 LAB HEMOGLOBIN(LOINC) 12.0 - g/dl 16.0 HEMOGLOBIN 14.7 LAB HEMATOCRIT(LOINC) 34.0 - % 46.0 HEMATOCRIT 42.0 LAB MCV(LOINC) 80 - 99 fl MCV 82 LAB MCH(LOINC) 27 - 33 pg MCH 29 LAB MCHC(LOINC) 32 - 36 X10 3 MCHC 35 LAB RDW/CV(LOINC) 12.0 - % 15.6 RDW/CV 13.5 LAB PLATELET(LOINC) 150 - 450 x10EE3/UL PLATELET 227 LAB MPV(LOINC) 6.6 - 10.5 fl MPV 8.3 Result Comment: AUTOMATED DIFFERENTIAL LAB NEUT %(LOINC) 46.0 - 76.0 % NEUT % 69.4 LAB LYMPH %(LOINC) 20.0 - 45.0 % LYMPH % Low 18.0 LAB MONOS %(LOINC) 0.0 - 10.0 % MONOS % 7.2 LAB EO %(LOINC) 0.0 - 7.0 % EO % 4.5 LAB BASO %(LOINC) 0.0 - 2.0 % BASO % 0.9 LAB Lymph #(LOINC) 0.80 - 2.80 x10EE3/U L Lymph # 1.80 LAB Neut #(LOINC) 1.50 - 7.10 x10EE3/U L Neut # 7.00 LAB [place] #(LOINC) 0.20 - 1.00 x10EE3/U L [place] # 0.70 LAB EO #(LOINC) 0.00 - 0.50 x10EE3/U L EO # 0.50 LAB Baso #(LOINC) 0.00 - 0.10 x10EE3/U L Baso # 0.10 LAB MANUAL DIFF(LOINC) MANUAL DIFF N/A LAB MORPHOLOGY(LOINC ) MORPHOLOGY N/A Result Comment: {CD] Performed By: #### [id number] #### [facility],[address] [place] [address] VITAMIN D, 25 Collected: 12/12/2017 Status: F Source: [facility] 2:35 PM [facility] REPOSITORY TYPE CODE TESTS RESULT OUT OF RANGE REFERENCE UNITS LAB VitD(LOINC) 30.00 - 100 ng/mL VitD 60.63 Result Comment: 25-OHD3 indicates both endogenous production and supplementation. 25-OHD2 is an indicator of exogenous sources, such as diet or supplementation. Therapy is based on measurement of Total 25-OHD, with levels <20 ng/mL indicative of Vitamin D deficiency, while levels between 20 ng/mL and 30 ng/mL suggest insufficiency. Optimal levels are >=30ng/mL. Vitamin D, 25-OH D3 Not Established Vitamin D, 25-OH D2 Not Established Performed By: #### [id number] #### [facility],[address] [place] [address] CMP WITH EGFR Collected: 12/12/2017 Status: F Source: [facility] 2:35 PM [facility] REPOSITORY TYPE CODE TESTS RESULT OUT OF RANGE REFERENCE UNITS LAB CMP with eGFR(LOINC) CMP with eGFR Result Comment: COMPREHENSIVE METABOLIC PANEL LAB SODIUM(LOINC) 136 - 145 mmol/l SODIUM 138 LAB POTASSIUM(LOINC) 3.5 - 5.1 mmol/L Low POTASSIUM 3.3 LAB CHLORIDE(LOINC) 98 - 107 mmol/L CHLORIDE 100 LAB CO2(LOINC) 21.0 - mmol/L 31.0 CO2 29.0 LAB GLUCOSE(LOINC) 74 - 106 mg/dl GLUCOSE 99 LAB BUN(LOINC) 6 - 20 mg/dl BUN 16 LAB CREATININE(LOINC) 0.6 - 1.2 mg/dl CREATININE 1.1 LAB AST/SGOT(LOINC) 13 - 39 U/L AST/SGOT 15 LAB ALK PHOS(LOINC) 38 - 126 U/L ALK PHOS 74 LAB CALCIUM(LOINC) 8.6 - mg/dl 10.2 CALCIUM 10.0 LAB TOTAL PROTEIN(LOINC) 6.4 - 8.3 g/dl TOTAL PROTEIN 7.6 LAB ALBUMIN(LOINC) 3.4 - 4.8 g/dL ALBUMIN 4.5 LAB GLOBULIN(LOINC) 1.5 - 3.8 G/DL GLOBULIN 3.1 LAB A/G RATIO(LOINC) 0.9 - 1.6 A/G RATIO 1.5 LAB TOTAL BILI(LOINC) 0.0 - 1.5 mg/dl TOTAL BILI 1.3 LAB B/C RATIO(LOINC) 0 - 30 ratio B/C RATIO 15 LAB ALT/SGPT(LOINC) 8 - 35 U/L ALT/SGPT 15 LAB ANION GAP(LOINC) 10 - 20 mmol/L ANION GAP 12 LAB AGE(LOINC) years AGE 72 LAB eGFR(LOINC) 60 - 999 ML/MINUTE eGFR Low 49 LAB eGFR(AA)(LOINC) 60 - 999 ML/MINUTE eGFR(AA) Low 59 Result Comment: ACCORDING TO THE NATIONAL KIDNEY DISEASE EDUCATION PROGRAM(NKDE), A NORMAL eGFR IS A VALUE GREATER THAN OR EQUAL TO 60 ML/MIN/1.73 SQ METERS. CHRONIC KIDNEY DISEASE: <60mL/MIN/1.73 SQ METERS KIDNEY FAILURE: <15mL/MIN/1.73 SQ METERS THIS TEST SHOULD ONLY BE USED FOR PATIENTS 18 YEARS OF AGE AND OLDER. Performed By: #### [id number] #### [place] [address] C-REACTIVE PROTEIN Collected: 12/12/2017 Status: F Source: [facility] 2:35 PM [facility] REPOSITORY TYPE CODE TESTS RESULT OUT OF RANGE REFERENCE UNITS LAB CRP(LOINC) 0.00 - 1.00 mg/dl High CRP 1.30 Performed By: #### [id number] #### [place] [address] MAGNESIUM Collected: 12/12/2017 Status: F Source: [facility] 2:35 PM [facility] REPOSITORY TYPE CODE TESTS RESULT OUT OF REFERENCE UNITS RANGE LAB MAGNESIUM( 1.6 - 2.6 mg/dl LOINC) MAGNESIUM 1.7 Performed By: #### [id number] #### [place] [address] TSH Collected: 12/12/2017 Status: F Source: [facility] 2:35 PM [facility] REPOSITORY TYPE CODE TESTS RESULT OUT OF RANGE REFERENCE UNITS LAB TSH(LOINC) 0.34 - 5.60 uIU/ml TSH 1.67 Performed By: #### [id number] #### [place] [address] T4-FREE (FREE Collected: 12/12/2017 Status: F Source: [facility] THYROXINE) 2:35 PM [facility] REPOSITORY TYPE CODE TESTS RESULT OUT OF RANGE REFERENCE UNITS LAB T4 0.61 - 1.12 ng/dl FREE(LOINC) High T4 FREE 1.21 Result Comment: *SPECIMENS FROM PATIENTS WHO ARE UNDERGOING BIOTIN THERAPY AND/OR INGESTING BIOTIN SUPPLEMENTS MAY HAVE FALSE HIGH RESULTS. Performed By: #### [id number] #### [place] [address] VITAMIN B-12 Collected: 12/12/2017 Status: F Source: [facility] 2:35 PM [facility] REPOSITORY TYPE CODE TESTS RESULT OUT OF REFERENCE UNITS RANGE LAB N(LOINC) 180 - 914 pg/mL VITAMIN B12 676 Performed By: #### [id number] #### [place] [address] PHOSPHORUS Collected: 12/12/2017 Status: F Source: [facility] 2:35 PM [facility] REPOSITORY TYPE CODE TESTS RESULT OUT OF REFERENCE UNITS RANGE LAB PHOSPHORUS 2.7 - 4.5 mg/dl (LOINC) PHOSPHORUS 2.7 Performed By: #### [id number] #### [place] [address] HEPATITIS PANEL,ACUTE Collected: 12/12/2017 Status: F Source: [facility] WITH REFLEX [QU] 2:35 PM [facility] REPOSITORY TYPE CODE TESTS RESULT OUT OF REFERENCE UNITS RANGE LAB HEPATITIS PANEL,ACUTE WITH REFLEX [QU](LOINC) HEPATITIS PANEL,ACUTE WITH REFLEX [QU] Result Comment: _HEPATITIS PANEL,ACUTE WITH REFLEX_ HEPATITIS PANEL, ACUTE W/REFLEX TO CONFIRMATION Reported: 12/14/2017 04:22 Status=F TEST RESULT FLAG RANGE UNITS HEPATITIS B SURFACE AG Nonreactive Nonreactive 18.0434.rfl.COMPLETE.AMRR .5196-1 CONFIRMATION see below 12/14/17.rfl.COMPLETE.AMRR .7905-3 Not required according to the current package insert. HEPATITIS B CORE AB (IGM) Nonreactive Nonreactive 12/14/17.rfl.COMPLETE.AMRR .79802-1 HEPATITIS A IGM Nonreactive 12/14/17.rfl.COMPLETE.AMRR .96029-7 Reference range: Nonreactive HEPATITIS C ANTIBODY Nonreactive Nonreactive 12/14/17.rfl.COMPLETE.AMRR .49450-7 SIGNAL TO CUTOFF 0.01 <1.00 ratio 12/14/17.rfl.COMPLETE.AMRR .68011-7 ADDITIONAL TESTING Not indicated 12/14/17.rfl.COMPLETE.AMRR Test Performed by [facility], [facility], [address] [place] [address] Pedro Bobo M.D., Ph.D., Director of Laboratories , [facility] [id number] Performed By: #### [id number] #### [facility],[address] [place] [address] T3, FREE Collected: 12/12/2017 Status: F Source: [facility] 2:35 PM [facility] REPOSITORY TYPE CODE TESTS RESULT OUT OF RANGE REFERENCE UNITS LAB T3, FREE(LOINC) T3, FREE Result Comment: _T3, FREE_ T3, FREE Reported: 12/14/2017 08:36 Status=F TEST RESULT FLAG RANGE UNITS T3, FREE 3.2 2.3-4.2 pg/mL 12/14/17.0855.rfl.COMPLETE.AMRR .3051-0 Test Performed by [facility], [facility], [address] [place] [address] Pedro Bobo M.D., Ph.D., Director of Laboratories , [place] [id number] Performed By: #### [id number] #### [address] [address] MAMM DIGITAL BILAT Observed: 12/12/2017 Status: F Source: [facility] SCREEN 2:[address] [address] Patient: ZEV BELLO Phone#: : 1945 Age: 72 Gender: F Pt. Type: Out Account: [id number] Location: [facility] Ordering: JEET GALINDO Exam Date: 12/12/2017/14:15 Family Phys: AGAPITO VARGHESE Charge Code: 624975 Physician: [place] Order #: [id number] DLP Dose#: PROCEDURE: MAMM BILAT DIGITAL SCREENING WITH CAD COMPARISON: [facility], BILAT SCREENING, 06/25/2015, 11:18. INDICATIONS: Screening mammogram BREAST COMPOSITION: Scattered fibroglandular densities (25-50% glandular). FINDINGS: DIAGNOSTIC CATEGORY 1--NEGATIVE ASSESSMENT. RIGHT BREAST: No significant suspicious finding. No significant change has occurred. LEFT BREAST: No significant suspicious finding. No significant change has occurred. RECOMMENDATIONS: ROUTINE MAMMOGRAM AND CLINICAL EVALUATION. PLEASE NOTE: A NORMAL MAMMOGRAM DOES NOT EXCLUDE THE POSSIBILITY OF BREAST CANCER. A CLINICALLY SUSPICIOUS PALPABLE LUMP SHOULD BE BIOPSIED. THIS FACILITY UTILIZES A REMINDER SYSTEM TO ENSURE THAT ALL PATIENTS RECEIVE REMINDER LETTERS FOR APPOINTMENTS. THIS INCLUDES REMINDERS FOR ROUTINE MAMMOGRAMS, DIAGNOSITC MAMMOGRAMS, OR OTHER BREAST IMAGING INTERVENTIONS WHEN APPROPRIATE. THIS PATIENT WILL BE PLACED IN THE APPROPRIATE REMINDER SYSTEM. Dictated by: Lanny Vincent MD on 12/12/2017 at 15:44 Approved by: Lanny Vincent MD on 12/12/2017 at 15:44 ALLERGIES ALLERGIES DATE TYPE / CODE NAME / CODE REACTION SEVERITY SOURCE Drug SULFA Moderate Gregory Pomerene Allergy/4160 (sulfonamide) ([place] [address](SNOMED /12958607(RXN Modifier) Repository CT) ORM) (Qualifier Value) Drug CODEINE/88460 Moderate Gregory Pomerene Allergy/4160 386(RXNORM) ([place] [address](SNOMED Modifier) Repository CT) (Qualifier Value) Drug OXAPROZIN/000 Moderate Gregory Pomerene Allergy/4160 64897(RXNORM) ([place] [address](SNOMED Modifier) Repository CT) (Qualifier Value) Drug CARAFATE/0000 Moderate Gregory Pomerene Allergy/4160 5966(RXNORM) ([place] [address](SNOMED Modifier) Repository CT) (Qualifier Value) Drug vioxx/[id number] Moderate Gregory Pomerene Allergy/4160 0(RXNORM) ([place] [address](SNOMED Modifier) Repository CT) (Qualifier Value) ENCOUNTERS ENCOUNTERS ADMIT/DISCHARGE ACCOUNT NUMBER ADMITTING ENCOUNTER LOCATION SOURCE CLASS 08/22/2018/08/22/20 [id number] Ambulatory BMSBuilding: [address] Repository 08/17/2018 [id number] [facility] ding:LABSPEC Repository 07/12/2018 [id number] Ambulatory [facility] ding:MFPLAB Repository 06/21/2018 [id number] Ambulatory [facility] ding:CVS Repository 05/11/2018 [id number] Ambulatory [facility] ding:MFPLAB Repository 05/09/2018 [id number] Ambulatory [facility] ding:US Repository 04/25/2018 [id number] Ambulatory [facility] ding:CT Repository 03/30/2018 [id number] Ambulatory [facility] ding:MFPLAB Repository 03/28/2018 [id number] PRINCESS, Ambulatory [facility] :PT 03/13/2018/03/14/20 [id number] PRINCESS, Inpatient [address] nNBNRoom: Repository 0230Bed: 03/09/2018 [id number] [facility] ding:MFPLAB Repository 03/03/2018/03/03/20 [id number] Ambulatory [address] ng:LBNH Repository 01/23/2018 [id number] MATEO, [facility] Repository 12/12/2017/12/13/[id number] Repository PAYERS PAYERS ENCOUNTER GUARANTOR PAYER SUBSCRIBER SOURCE 08/22/2018 MARY Doss Primary ZEV [id number] Insurance:MEDICARE MOWERYDOB: Community ARTS PART A BPolicy [place]: [id number] [id number] Repository [address]Wtv: [phone]) Date:2018-08-22 [phone] () 08/22/2018 Secondary [place]EBELLE [place] [facility] [id number] Hospital Number: Repository [id number] Date:[id number] [address]AT: 08/22/2018 Tertiary NOT GIVENUNK [place] Insurance:SELF PAY [facility] Number: Effective Repository Date:2018-08-22 08/17/2018 MARY Doss Primary ZEV Heller [id number] Insurance:MEDICARE MOWERYDOB: Community ART[place] PART A olicy Number: [id number] [id number] Repository [address]36Kuh: [phone]) Date:2018-08-17 [phone] () 08/17/2018 Secondary MAEBELLE [place] Insurance:PACHUTA MOWERYD: [facility] [id number] Hospital Number: Repository [id number] Date:3586-95-39VT [address] [place] [address] 26391FE: 08/17/2018 Tertiary NOT GIVENUNK [place] Insurance:SELF PAY [facility] Number: Effective Repository Date:2018-08-17 07/12/2018 MARY Doss Primary ZEV [id number] Insurance:MEDICARE MOWERYDOB: Community ART[place] PART A olicy Number: [id number] [id number] Repository 02887Zdl: (049) Date:2018-07-12 [phone] () 07/12/2018 Secondary MAEBELLE [place] Insurance[place] MOWERYDOB: [facility] KYRGYZ [facility] [id number] Hospital Number: Repository [id number] Date:9587-19-31QD [address] [place] [address] 73821OO: 07/12/2018 Tertiary NOT GIVENUNK [place] Insurance:SELF PAY [facility] Number: Effective Repository Date:2018-07-12 06/21/2018 MARY Doss Primary ZEV Heller [id number] Insurance:MEDICARE MOWERYDOB: Community ART[place] PART A olicy Number: [id number] [id number] Repository 216[address]Omi: (756) Date:2018-04-13 [phone] () 06/21/2018 Secondary MAEBELLE [place] Insurance[place] MOWERYDOB: [facility] KYRGYZ [facility] [id number] Hospital Number: Repository [id number] Date:8668-03-86SV [address] [place] [address] 69032DC: 06/21/2018 Tertiary NOT GIVENUNK [place] Insurance:SELF PAY [facility] Number: Effective Repository Date:2018-04-13 05/11/2018 Mary L Primary ZEV [id number] Insurance:MEDICARE MOWERYDOB: Community ARTS PART A olicy Number: [id number] [id number] Repository 71[address]Hbn: ([phone]) Date:2018-05-11 [phone] () 05/11/2018 Secondary MAEBELLE [place] Insurance:[place] MOWERYDOB: [facility] KYRGYZ [facility] [id number] Hospital Number: Repository [id number] Date:6578-88-71SH [address] [place] [address] 28212EB: 05/11/2018 Tertiary NOT GIVENUNK [place] Insurance:SELF PAY [facility] Number: Effective Repository Date:2018-05-11 05/09/2018 Mary L Primary ZEV Heller [id number] Insurance:MEDICARE MOWERYDOB: Community [place] PART A BPolicy Number: [id number] [id number] Repository 10366Dvq: ([phone]) Date:2018-05-02 [phone] () 05/09/2018 Secondary MAEBELLE [place] Insurance:[place] MOJOSEYDOB: [facility] [id number] Hospital Number: Repository [id number] Date:1075-87-43WV [address] [place] [address] 54381ZX: 05/09/2018 Tertiary NOT GIVENUNK [place] Insurance:SELF PAY [facility] Number: Effective Repository Date:2018-05-02 04/25/2018 Mary L Primary ZEV Heller [id number] Insurance:MEDICARE MOWERYDOB: Community ART[place] PART A BPolicy Number: [id number] [id number] Repository 389[address]Wbo: (570) Date:2018-04-17 [phone] () 04/25/2018 Secondary MAEBELLE [place] Insurance:[place] MOWERYDOB: [facility] [id number] Hospital Number: Repository [id number] Date:8827-00-45YX [address] [place] [address] 53875AZ: 04/25/2018 Tertiary NOT GIVENUNK [place] Insurance:SELF PAY [facility] Number: Effective Repository Date:2018-04-17 03/30/2018 Mary Doss Primary ZEV Heller [id number] Insurance:MEDICARE MOWERYDOB: Community Arts PART A BPolicy Number: [id number] [place], [place] [id number] Repository 986[address]Xnz: (740) Date:2018-03-30 [phone] (HP) 03/30/2018 Secondary ZEV Heller Insurance:COMMERCIAL MOWERYDOB: [facility] OTHERPoly Number: [id number] [facility] [id number] Repository Date:2018-03-30/TWILA [place] /WP: 03/30/2018 Tertiary NOT GIVENROSA Heller Insurance:SELF PAY [facility] Number: Effective Repository Date:2018-03-30 03/28/2018 [facility] MOWERYDOB: Insurance:MedicarePoli MOWERYDOB: Hospital [id number] cy Number: [id number] Repository ARTS [id number] [address] [place], [place] Date: [place], [place] [address]Fvp: [facility] [place]HONO [place] [address] ~( [facility] 06[facility], 740 (HP) [place] [address]CP: 03/28/2018 Secondary [facility] Insurance:PACHUTA MOWERYDOB: [facility] [id number] Repository INSURANCE COPolicy 52 ART[address] Number: [place], [place] [id number] Date:1739-26-25RG [address] [place] [address]~[address]WP: 03/13/2018 [facility] ZEV [place] [facility]: Insurance:MEDICARE MOWERYDOB: [facility] [id number] PART APolicy Number: [id number] Repository ARTS Effective [place] Date:2010-10-20 - [address]Yzv: 9952-05-86Gzcm Name:B (HP) (WP) 03/13/2018 Secondary ZEV Garcia Insurance:MEDICARE MOWERYDOB: Health System PART BPolicy Number: [id number] Repository Effective Date:2010-10-202130-51-01Onbb Name:B 03/13/2018 Tertiary ZEV [place] Insurance:[place] MOWERYDOB: [facility] KYRGYZ LIFPolicy [id number] Repository Number: [id number] Date:2018-02-176525-35-84Bong Name:[address] [address]PP: 03/09/2018 Mary Doss Primary ZEV Heller [id number] Insurance:MEDICARE MOWERYDOB: Community Arts PART A BPolicy Number: [id number] [place], [place] [id number] Repository [address]16[address]Qpk: (817) Date:2018-03-09 [phone] (HP) 03/09/2018 Secondary ZEV Heller Insurance:COMMERCIAL MOWERYDOB: Community OTHERPolicy Number: [id number] [facility] [id number] Repository Date:2018-03-09/[place] /WP: 03/09/2018 Tertiary GREG GIVENROSA Heller Insurance:SELF PAY [facility] Number: Effective Repository Date:2018-03-09 03/03/2018 MAEBELLE Primary ZEV Garcia MOWERYDOB: Insurance:MEDICARE MOWERYDOB: [facility] [id number]: PART APolicy Number: [id number] Repository Effective (HP)Tel: 000) Date:2010-10-200000 (WP) 0817-19-88Omrw Name:B 03/03/2018 Secondary ZEV Garcia Insurance:MEDICARE MOWERYDOB: [facility] PART BPolicy Number: [id number] Repository Effective Date:2010-10-204318-00-55Gbnk Name:B 01/23/2018 VAEBELLE Primary ZEV Chaudhary MOWERYDOB: Insurance:MEDICAREPoli MOWERYDOB: [facility] [id number] cy Number: [id number] [facility] [id number] 52 [facility] Repository [facility] Date:Plan Name:[facility] [address]Fue: [phone] () 12/12/2017 [facility] Primary ZEV Chaudhary MOWERYDOB: Insurance:MEDICARE MOWERYDOB: [facility] [id number] [facility] [id number] [facility] ARTS Number: [address] [place], [place] [id number], [place] [address]Phj: (897) Date:Plan Name: [id number] [phone] () 12/12/2017 Secondary ZEV Chaudhary Insurance:PACHUTA MOWERYDOB: [facility] [id number] Hospital Number: 52 [facility] [id number] [place] Date:Plan Name:[facility] [address] [id number]:
== END ==
PROVIDERS: Family Provider Family Medicine; PCP Family Medicine; Referring Provider Nurse Practitioner Family; Visit Provider Nurse Practitioner Family
DX: R82.90 Unspecified abnormal findings in urine (principal)
CPT/HCPCS: 87086; 87088

== ENCOUNTER → 2018-09-21 10:16 | Outpatient (CLI) | payer MEDICARE, OTHER, SELFPAY ==
--- NOTE | 2018-09-21 10:20 | RAD_ITS ---
STUDY: X-RAY CHEST REASON FOR EXAM: Female, 72 years old. Acute bronchitis. Cough. TECHNIQUE: 2 views COMPARISON: None. FINDINGS: Small calcified granulomata in the right lung There is no demonstrated pleural abnormality. Normal size heart. Normal mediastinum and mika. Normal visualized pulmonary arteries. Normal visualized aortic arch and descending thoracic aorta. Mild degenerative changes of the thoracic spine. A right hemiarthroplasty-right shoulder.. Normal visualized ribs, clavicles, and shoulders. There is no demonstrated abnormality of the visualized soft tissue structures of the upper abdomen. RAD/Chest PA and Lateral IMPRESSION: No acute lung findings. Electronically Signed: Lazarus Valles MD at 7:19 EST Tel , Service support ,
== END ==
PROVIDERS: Family Provider Family Medicine; PCP Family Medicine; Referring Provider Family Medicine; Visit Provider Family Medicine
DX: J20.9 Acute bronchitis, unspecified (principal)
CPT/HCPCS: 71046

== ENCOUNTER → 2018-10-13 12:00 | Outpatient (CLI) | payer MEDICARE, OTHER, SELFPAY | PROVIDERS: Family Provider Family Medicine; PCP Family Medicine; Referring Provider Surgery; Visit Provider Surgery | DX: Z53.9 Procedure and treatment not carried out, unspecified reason (principal) ==

== ENCOUNTER → 2018-11-03 11:28 | Outpatient (CLI) | payer MEDICARE, OTHER, SELFPAY ==
[2018-11-03 11:32] LABS: Mucous, Urine 0 SEEN /hpf (<or=2+); Red Blood Cells-Urine 0 SEEN /hpf (0-5)
[2018-11-03 13:02] LABS: Absolute Lymphocyte Count 1.84 X10^3/ul (0.83-4.51); Absolute Neutrophil Count 4.9 X10^3/uL (2.0-7.7); Basophil# 0.03 X10^3/uL; Basophil% 0.4 % (0-1); Eosinophil# 0.27 X10^3/uL; Eosinophils% 3.5 % (0-5); Hematocrit 42.2 % (37-47); Hemoglobin 13.6 g/dl (12.0-15.0); Lymphocyte # 1.84 X10^3/ul (4.0); Lymphocyte % 24.2 % (19-41); Mean Corp Hgb Conc 32.2 g/gl (32-36); Mean Corpuscular Hgb 27.2 pg (27.0-32.0); Mean Corpuscular Volume 84.4 fL (81-99); Mean Platelet Vol. 10.7 fl (6.2-12.0); Monocyte# 0.53 X10^3/uL; Neutrophil # 4.93 X10^3/uL (2.7-7.7); Neutrophil % 64.8 % (47-70); Platelet Count 174 K/mm3 (150-450); RBC Distribution Width CV 13.8 % (11.6-14.6); RBC Distribution Width SD 41.9 fl (35.1-43.9); White Blood Count 7.6 K/mm3 (4.4-11.0)
[2018-11-03 13:04] LABS: POSITIVE COUNT NO; POSITIVE DIFFERENTIAL NO; POSITIVE MORPHOLOGY NO
[2018-11-03 13:08] LABS: Color, Urine Yellow (Yellow); Glucose, Dipstick Normal (Normal); Ketone-Dipstick Negative (Negative); Leukocyte Esterase-Dipstick 100 /ul (Negative); Nitrite-Dipstick Negative (Negative); Occult Blood-Urine 50 /ul (Negative); Protein-Dipstick Negative (Negative); Urine Bilirubin Dipstick Negative (Negative); Urine Clarity Sl. Cloudy (Clear); Urine Urobilinogen Normal (Normal)
[2018-11-03 13:16] LABS: Protein, Urine (Random) 14.9 mg/dL (<11.9); Protein:Creat Ratio 80 mg/g CRE (0-200)
[2018-11-03 13:17] LABS: Bacteria 1+ /hpf (None Seen); Squamous Epithelial Cells - UA 10-25 SEEN /hpf (5-10); Transitional Epithelial - Ur 0-5 SEEN /hpf (0-5); White Blood Cells 5-10 SEEN /hpf (0-5)
[2018-11-03 13:49] LABS: ALB/GLOB Ratio 1.2 RATIO (0.9-2.4); AST(SGOT) 16 U/L (15-37); Alanine Aminotransfer ALT/SGPT 23 U/L (13-56); Albumin, Serum 4.1 g/dL (3.2-5.0); Alkaline Phosphatase 103 U/L (45-117); Anion Gap 9 (5-15); BUN 16 mg/dL (7-18); BUN/Creat Ratio 15.8 RATIO (10-20); Calcium,Total 9.1 mg/dL (8.5-10.1); Chloride 109 mmol/L (98-107); Cholesterol 233 mg/dL (200); Creatinine, Serum 1.01 mg/dL (0.55-1.02); EST Glomerular Filtration Rate 57 mL/min (>60); Est Glom Filt Rate - Afr Amer 69 mL/min (>60); Globulin 3.3 g/dL (2.2-4.2); Glucose 82 mg/dL (74-106); High Density Lipoprotein 45 mg/dL; Potassium 3.9 mmol/L (3.5-5.1); Protein, Total 7.4 g/dL (6.4-8.2); Sodium Level 143 mmol/L (136-145); Triglycerides 178 mg/dL; Very Low Density Lipoprotein 36 mg/dL (5-40)
== END ==
PROVIDERS: Family Provider Family Medicine; PCP Family Medicine; Visit Provider Family Medicine
DX: I12.9 Hypertensive chronic kidney disease with stage 1 through stage 4 chronic kidney disease, or unspecified chronic kidney disease (principal); N18.3 Chronic kidney disease, stage 3 (moderate); E78.5 Hyperlipidemia, unspecified; E55.9 Vitamin D deficiency, unspecified
CPT/HCPCS: 36415; 80053; 80061; 81001; 82306; 82570; 84156; 85025

== ENCOUNTER 2018-12-04 06:46 | Day surgery (SDC) | payer MEDICARE, OTHER, SELFPAY ==
[2018-12-04 07:11] VITALS: BP 121/67; PULSE 77; RESP 16; TEMP 36.7; O2SAT 100; BMI 29.4
--- NOTE | 2018-12-04 08:06 | PCM.HP.STD ---
Problem List (1) Screening for colon cancer Status: Acute History of Present Illness Date of Admission: 12/04/18 The patient is a 73 year old F who presents for screening colonoscopy. Past Medical History Allergies nitrofurantoin Allergy (Verified 11/30/18 16:08) Chest tightness oxaprozin Allergy (Verified 11/30/18 16:08) Unknown rofecoxib [From Vioxx] Allergy (Verified 11/30/18 16:08) Unknown sucralfate [From Carafate] Allergy (Verified 11/30/18 16:08) Unknown Sulfa (Sulfonamide Antibiotics) Allergy (Verified 09/14/18 09:43) Unknown codeine Adverse Reaction (Verified 11/30/18 16:08) Nausea/Vom/Diarrhea Home Medications: Ambulatory Orders Medication Instructions Recorded Amlodipine [Norvasc] 5 mg PO DAILY 09/14/18 Aspirin E.C. [Ecotrin] 81 mg PO QODAY 09/14/18 Cholecalciferol (Vitamin D3) 5,000 unit PO DAILY 09/14/18 [Vitamin D3] Losartan Potassium [Cozaar] 50 mg PO DAILY 09/14/18 Metoprolol Tartrate [Lopressor 100 mg PO DAILY 09/14/18 (Beta Donaldo)] Ubidecarenone [Coq-10] 100 mg PO DAILY 09/14/18 Rosuvastatin Calcium [Crestor] 10 mg PO GALVEZ 11/30/18 Smoking Status: Never smoker Tobacco Use: Non-smoker - *Family History Maternal History Items: No pertinent history Review of Systems Constitutional: Denies: Chills, Fever, Weight Change Cardiovascular: Denies: Chest Pain, Chest Pressure, Chest Tightness, Palpitations Respiratory: Denies: Cough, Hemoptysis, Shortness of breath at rest, Shortness of breath upon exertion, Wheezing Gastrointestinal: Denies: Abdominal Pain, Constipation, Diarrhea, Hematemesis, Nausea, Melena, Vomiting VTE Information - Inpt Only VTE Present on Admission: No VTE Mechan Device Prophylaxis: None VTE Pharm Prophylaxis ordered?: No Reason prophylaxis not ordered:: Treatment Not Indicated Patient Problems: Active and Suspected Problems Screening for colon cancer (Acute) - Physical Exam General: Alert, Oriented x3 Lungs: Clear to auscultation Cardiovascular: Regular rate, Regular Rhythm, No murmurs Abdomen: Bowel Sounds Present, Soft, Non Tender, Non-Distended Vital Signs Temp Pulse Resp BP Pulse Ox 98.1 F 77 16 121/67 H 100 12/04/18 07:11 12/04/18 07:11 12/04/18 07:11 12/04/18 07:11 12/04/18 07:11 Oxygen Delivery Method Room Air Weight: 176 lb 12.972 oz Body Mass Index (BMI) 29.4 Assessment/Plan All Active Problems Screening for colon cancer (Acute) My plan will be to perform a colonoscopy. Risk benefits have been reviewed with the patient to include bleeding possible injury to the colon which could require further surgeries she agrees to proceed.
[2018-12-04 08:31] VITALS: BP 106/56; BP 121/67; PULSE 76; RESP 16; TEMP 36.8; O2SAT 96
--- NOTE | 2018-12-04 08:31 | OP.ENDO_ITS ---
12/04/2018 Siddharth Vidal [address] [place] [address] Re : Colonoscopy procedure for Liza Brady Dear Dr. Vidal This procedure was performed on Tuesday, December 04, 2018. My impressions and recommendations are as follows: Impressions : - Diverticulosis in the sigmoid colon. No specimens collected. - Non-bleeding internal hemorrhoids. - The examination was otherwise normal. Recommendations : - Discharge patient to home. - Resume previous diet. - Continue present medications. - Await pathology results. - Repeat colonoscopy in 10 years for screening purposes. - Return to primary care physician (date not yet determined). My findings are described in the full procedure note, which is enclosed. If I can be of further assistance, please feel free to contact me at Doctor phone number(s): , Fax: [phone], Work: . Sincerely, MD Jose Malone MD 12/04/2018 8:31:14 AM This report has been signed electronically.
[2018-12-04 08:35] VITALS: BP 102/58; BP 121/67; PULSE 73; RESP 16; O2SAT 95
[2018-12-04 08:40] VITALS: BP 108/61; BP 121/67; PULSE 73; RESP 16; O2SAT 97
[2018-12-04 08:45] VITALS: BP 114/60; BP 121/67; PULSE 74; RESP 16; TEMP 36.3; O2SAT 97
[2018-12-04 09:06] VITALS: BP 121/67
== END 2018-12-04 09:20 | disposition home or self-care (01) ==
LOC: EN 06:48 → AC 06:50
PROVIDERS: Family Provider Family Medicine; PCP Family Medicine; Referring Provider Surgery; Visit Provider Surgery
PROC: 0DJD8ZZ Inspection of Lower Intestinal Tract, Via Natural or Artificial Opening Endoscopic (ICD-10-PCS; CPT 45378; principal; 2018-12-04 07:55)
DX: Z12.11 Encounter for screening for malignant neoplasm of colon (principal); K57.30 Diverticulosis of large intestine without perforation or abscess without bleeding; K64.8 Other hemorrhoids; Z79.82 Long term (current) use of aspirin; Z79.899 Other long term (current) drug therapy
CPT/HCPCS: G0121; J7120; J2405

== ENCOUNTER → 2018-12-28 11:47 | Outpatient (CLI) | payer MEDICARE, OTHER, SELFPAY ==
[2018-12-04 07:11] VITALS: BMI 29.4
--- NOTE | 2018-12-28 12:01 | RAD_ITS ---
STUDY: X-RAY CHEST REASON FOR EXAM: Female, 73 years old. Bronchitis. Cough. Preop exam TECHNIQUE: PA and lateral views of the chest. COMPARISON: September 21, 2018. FINDINGS: The lungs are clear and expanded. There is right lower lung granuloma. There is no demonstrated pleural abnormality. Normal size heart. There are calcified hilar lymph nodes. Normal visualized pulmonary arteries. Normal visualized aortic arch and descending thoracic aorta. There are diffuse degenerative changes of the visualized thoracic spine. There is right shoulder replacement. There is postoperative change in the right upper abdomen. RAD/Chest PA and Lateral IMPRESSION: Degenerative changes, as described above. No demonstrated acute cardiopulmonary process. Electronically Signed: Chris Williamson MD at 8:59 EDT , Service support ,
[2018-12-28 14:14] LABS: Hematocrit 41.5 % (37-47); Hemoglobin 13.8 g/dl (12.0-15.0); Mean Corp Hgb Conc 33.3 g/gl (32-36); Mean Corpuscular Hgb 27.8 pg (27.0-32.0); Mean Corpuscular Volume 83.5 fL (81-99); Mean Platelet Vol. 10.1 fl (6.2-12.0); Platelet Count 198 K/mm3 (150-450); RBC Distribution Width CV 13.6 % (11.6-14.6); RBC Distribution Width SD 41.3 fl (35.1-43.9); Red Blood Count 4.97 M/mm3 (4.2-5.4); White Blood Count 7.7 K/mm3 (4.4-11.0)
[2018-12-28 14:16] LABS: Scan Indicated on CBC? Y/N NO
[2018-12-28 14:22] LABS: Partial Thromboplast Time 27.5 Seconds (24.1-36.2); Prothrombin Time (Protime)PT. 13.1 SECONDS (11.7-14.9)
[2018-12-28 14:25] LABS: Anion Gap 8 (5-15); BUN 13 mg/dL (7-18); BUN/Creat Ratio 12.5 RATIO (10-20); Calcium,Total 9.1 mg/dL (8.5-10.1); Chloride 105 mmol/L (98-107); Creatinine, Serum 1.04 mg/dL (0.55-1.02); EST Glomerular Filtration Rate 55 mL/min (>60); Est Glom Filt Rate - Afr Amer 67 mL/min (>60); Glucose 86 mg/dL (74-106); Sodium Level 141 mmol/L (136-145)
== END ==
PROVIDERS: Family Provider Family Medicine; PCP Family Medicine; Referring Provider Nurse Practitioner Family; Visit Provider Nurse Practitioner Family
DX: Z01.818 Encounter for other preprocedural examination (principal)
CPT/HCPCS: 36415; 71046; 80048; 85027; 85610; 85730

== ENCOUNTER → 2019-03-01 10:20 | Outpatient (CLI) | payer MEDICARE, OTHER, SELFPAY ==
--- NOTE | 2019-03-01 10:33 | BD_ITS ---
STUDY: DUAL ENERGY X-RAY ABSORPTIOMETRY / DXA REASON FOR EXAM: Female, 73 years old. The patient is postmenopausal. Loss of height. TECHNIQUE: Bone Mineral Density (BMD) measurements of lumbar spine and bilateral hips were obtained. COMPARISON: None. FINDINGS: Lumbar Spine (L1-L4): g/cm2 (1.183) / T-score (0.0) / Z-score (1.7) Findings are suggestive of normal bone density with a low fracture risk. Left Femur Total: g/cm2 (0.887) / T-score (-1.0) / Z-score (0.7) Left Femoral Neck: g/cm2 (0.836) / T-score (-1.5) / Z-score (0.4) Right Femur Total: g/cm2 (0.908) / T-score (-0.8) / Z-score (0.8) Right Femoral Neck: g/cm2 (0.856) / T-score (-1.3) / Z-score (0.5) BD/Dexa Bone Density Study IMPRESSION: The patient is considered osteopenic as outlined below according to World Sinan Organization (WHO) criteria with a low fracture risk. Reference Information: The T-score is the number of standard deviations above or below the standard which is normal for young adults at their peak bone mineral density. The World Health Organization (WHO) interprets the T-scores as follows: Above -1 Normal bone density Between -1 and -2.5 Osteopenia Equal to / or below -2.5 Osteoporosis As a practical clinical guideline, osteopenia may be graded as follows: Mild -1 through -1.5 Moderate -1.6 through -2.0 Severe -2.1 through -2.4 The Z-score is the number of standard deviations above or below age-matched controls. A Z-score of less than -1.5 would be considered abnormal. References: 1. NIH Osteoporosis and Related Bone Diseases http://www.osteo.org 2. International Society for Clinical Densitometry http://www.iscd.org 3. National Osteoporosis Foundation http://www.nof.org Electronically Signed: Tommie Rodriguez, at 15:26 EDT , Service support ,
== END ==
PROVIDERS: Family Provider Family Medicine; PCP Family Medicine; Referring Provider Family Medicine; Visit Provider Family Medicine
DX: Z13.820 Encounter for screening for osteoporosis (principal); Z78.0 Asymptomatic menopausal state; M85.80 Other specified disorders of bone density and structure, unspecified site
CPT/HCPCS: 77080

== ENCOUNTER → 2019-05-10 09:38 | Outpatient (CLI) | payer MEDICARE, OTHER, SELFPAY ==
[2019-05-10 12:23] LABS: Absolute Lymphocyte Count 1.58 X10^3/uL (0.83-4.51); Absolute Neutrophil Count 5.4 X10^3/uL (2.0-7.7); Basophil# 0.05 X10^3/uL; Basophil% 0.6 % (0-1); Eosinophil# 0.29 X10^3/uL; Eosinophils% 3.7 % (0-5); Hematocrit 43.6 % (37-47); Hemoglobin 14.4 g/dL (12.0-15.0); Lymphocyte # 1.58 X10^3/ul (4.0); Lymphocyte % 20.1 % (19-41); Mean Corpuscular Hgb 28.1 pg (27.0-32.0); Mean Corpuscular Volume 85.2 fL (81-99); Mean Platelet Vol. 10.8 fl (6.2-12.0); Monocyte# 0.54 X10^3/uL; Monocyte% 6.9 % (0-10); NRBC Flagged by Analyzer 0 % (0-5); Neutrophil # 5.37 X10^3/uL (2.7-7.7); Neutrophil % 68.3 % (47-70); Platelet Count 202 K/mm3 (150-450); RBC Distribution Width CV 12.4 % (11.6-14.6); RBC Distribution Width SD 38.6 fl (35.1-43.9); Red Blood Count 5.12 M/mm3 (4.2-5.4); White Blood Count 7.9 K/mm3 (4.4-11.0)
[2019-05-10 12:44] LABS: ALB/GLOB Ratio 1.1 RATIO (0.9-2.4); AST(SGOT) 15 U/L (15-37); Alanine Aminotransfer ALT/SGPT 22 U/L (13-56); Albumin, Serum 3.9 g/dL (3.2-5.0); Alkaline Phosphatase 116 U/L (45-117); Anion Gap 3 (5-15); BUN 16 mg/dL (7-18); BUN/Creat Ratio 15.5 RATIO (10-20); Calcium,Total 9.3 mg/dL (8.5-10.1); Chloride 106 mmol/L (98-107); Cholesterol 170 mg/dL (200); Creatinine, Serum 1.03 mg/dL (0.55-1.02); EST Glomerular Filtration Rate 56 mL/min (>60); Est Glom Filt Rate - Afr Amer 68 mL/min (>60); Globulin 3.6 g/dL (2.2-4.2); Glucose 92 mg/dL (74-106); High Density Lipoprotein 41 mg/dL; Potassium 4.1 mmol/L (3.5-5.1); Protein, Total 7.5 g/dL (6.4-8.2); Sodium Level 139 mmol/L (136-145); Triglycerides 205 mg/dL; Very Low Density Lipoprotein 41 mg/dL (5-40)
[2019-05-10 12:53] LABS: Vitamin D,25 Hydroxy 43.5 ng/mL (29.95-100.01)
== END ==
PROVIDERS: Family Provider Family Medicine; PCP Family Medicine; Referring Provider Family Medicine; Visit Provider Family Medicine
DX: I12.9 Hypertensive chronic kidney disease with stage 1 through stage 4 chronic kidney disease, or unspecified chronic kidney disease (principal); N18.3 Chronic kidney disease, stage 3 (moderate); E78.5 Hyperlipidemia, unspecified; E55.9 Vitamin D deficiency, unspecified
CPT/HCPCS: 36415; 80053; 80061; 82306; 85025

== ENCOUNTER → 2019-05-17 11:29 | Outpatient (CLI) | payer MEDICARE, OTHER, SELFPAY ==
[2019-05-17 14:42] LABS: CPK Total, Creatine Kinase 42 U/L (26-192); Ferritin 211 ng/mL (8-252); Magnesium 2.1 mg/dL (1.6-2.6)
== END ==
PROVIDERS: Family Provider Family Medicine; PCP Family Medicine; Referring Provider Family Medicine; Visit Provider Family Medicine
DX: R25.2 Cramp and spasm (principal)
CPT/HCPCS: 36415; 82550; 82728; 83735

== ENCOUNTER → 2019-05-25 11:09 | Outpatient (CLI) | payer MEDICARE, OTHER, SELFPAY ==
--- NOTE | 2019-05-25 11:12 | US_ITS ---
STUDY: THYROID ULTRASOUND REASON FOR EXAM: Female, 73 years old. Nodule. TECHNIQUE: Ultrasound evaluation of the thyroid was performed with real-time and static cagle-scale imaging. COMPARISON: Thyroid ultrasound May 09, 2018 FINDINGS: RIGHT LOBE: The right lobe of the thyroid gland measures 4.3 x 1.7 x 2.1 cm. There is a minimally heterogeneous echotexture. A stable punctate calcification is seen in the posterior upper to mid pole. There are no demonstrated solid, cystic or complex lesions. LEFT LOBE: The left lobe of the thyroid gland measures 4.4 x 1.3 x 1.9 cm. There is a homogeneous echotexture. There are no demonstrated solid, cystic or complex lesions. The isoechoic nodule described on previous study is not conspicuous here. ISTHMUS: The isthmus measures 2 mm. The regional lymph nodes are normal. US/Thyroid IMPRESSION: Essentially normal ultrasound examination of the thyroid. The subcentimeter isoechoic nodule suggested in the posterior lower pole of the left lobe on previous study is not apparent here. Electronically Signed: Ruben Gannon MD at 17:11 EDT , Service support ,
== END ==
PROVIDERS: Family Provider Family Medicine; PCP Family Medicine; Referring Provider Family Medicine; Visit Provider Family Medicine
DX: E04.1 Nontoxic single thyroid nodule (principal)
CPT/HCPCS: 76536

== ENCOUNTER → 2019-08-07 12:10 | Outpatient (CLI) | payer MEDICARE, OTHER, SELFPAY ==
--- NOTE | 2019-08-07 12:15 | RAD_ITS ---
STUDY: X-RAY - BILATERAL RIBS WITH CHEST REASON FOR EXAM: Female, 73 years old. Fall, pain TECHNIQUE - RIBS: 6 view(s) of the ribs. TECHNIQUE - CHEST: COMPARISON: None. FINDINGS - RIBS : Normal visualized ribs without a demonstrated fracture. There is significant generalized osteopenia. FINDINGS - CHEST: The lungs are clear and expanded. There is no demonstrated pleural abnormality. Normal size heart. Normal mediastinum and mika. Normal visualized pulmonary arteries. Normal visualized aortic arch and descending thoracic aorta. There is a right shoulder prosthesis. There are degenerative changes of the thoracic spine. There are surgical clips within the right upper quadrant abdomen from prior cholecystectomy. There is no demonstrated abnormality of the visualized soft tissue structures of the upper abdomen. RAD/Ribs Ananda Min 4V w/PA Chest IMPRESSION: RIBS: Generalized osteopenia, no fractures CHEST: No acute cardiopulmonary process. Degenerative changes of the thoracic spine Right shoulder prosthesis Prior cholecystectomy, surgical clips within the right upper quadrant of the abdomen Electronically Signed: Maxwell Thayer, at 7:47 EST Tel , Service support ,
== END ==
PROVIDERS: Family Provider Family Medicine; PCP Family Medicine; Referring Provider Family Medicine; Visit Provider Family Medicine
DX: R07.81 Pleurodynia (principal); R82.90 Unspecified abnormal findings in urine
CPT/HCPCS: 71111; 87086; 87088